=== PATIENT | male | born 1960 | race African-American/Black ===

== ENCOUNTER 2016-06-04 11:00 | Emergency (ER) | payer OTHER ==
[~2016-06-04] VITALS: Ht 170.2 cm; Wt 75.0 kg
[~2016-06-04 11:00] MED LIST: CLON.2 PO; CORTI10A AD
[2016-06-04 11:11] VITALS: BP 182/102; PULSE 68; RESP 20; TEMP 98.1; O2SAT 97
[2016-06-04] MEDS ORDERED: SODIUM CHLOR 0.9% 1000 ML INJ 1,000 ML IV ONE (11:45)
[2016-06-04] MEDS ORDERED: SODIUM CHLORIDE 0.9% FLUSH 10 ML FLUSH IVF PRN (11:45)
[2016-06-04] MEDS ORDERED: CITA20TA4 PO (11:48)
[2016-06-04] MEDS ORDERED: TRAZ150T75 PO (11:48)
[2016-06-04] MEDS ORDERED: LOSA50TA PO (11:48)
--- NOTE | 2016-06-04 11:52 | PD ---
HPI Chief Complaint: Headache Time Seen by Provider: 11:12 Travel History International Travel<30 days: No Contact w/Intl Traveler<30days: No Traveled to known affect area: No History of Present Illness HPI Patient is a 55-year-old male with only history of hypertension, who presents to the emergency room with complaints of acute onset dizziness. 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 Patient reports that he asked someone to check his blood pressure, reports that he was told that his blood pressure was "threw the roof," reports that they checked his blood sugar and that was normal. Patient reports no chest pain or shortness of breath during the symptoms. Patient reports the symptoms lasted for a few seconds and then resolve on its own. Patient at this point has no complaints, reports "I am ready to go." Denies any headache or dizziness, denies any chest pain or shortness of breath or diaphoresis. Patient reports that maybe he felt this way because he not have any breakfast this morning. PFSH Past Medical History Cardiovascular Problems: Yes (HTN) Hypertension: Yes Immunizations Current: Yes Past Surgical History Other Surgery: Yes (hernia repair ; jaw surgery) Social History Alcohol Use: Yes ((3) 16 oz beers per day) Tobacco Use: Yes (1/2 ppd) Substance Use: No Allergies-Medications (Allergen,Severity, Reaction): Coded Allergies: Lipitor (Unverified Allergy, Unknown, Swelling, 06/04/16) Reported Meds & Prescriptions Reported Meds & Active Scripts Active Reported Losartan (Losartan Potassium) 50 Mg Tab 50 Mg PO DAILY Citalopram (Citalopram Hydrobromide) 20 Mg Tab 20 Mg PO DAILY Trazodone (Trazodone HCl) 150 Mg Tab 150 Mg PO HS Review of Systems General / Constitutional: No: Fever Eyes: No: Visual changes HENT: Positive: Headaches, Lightheadedness Cardiovascular: No: Chest Pain or Discomfort Respiratory: No: Shortness of Breath Gastrointestinal: No: Abdominal Pain Genitourinary: No: Dysuria Musculoskeletal: No: Pain Skin: No Rash Neurologic: Positive: Dizziness, Headache, No: Weakness Psychiatric: No: Depression Endocrine: No: Polydipsia Hematologic/Lymphatic: No: Easy Bruising Physical Exam Narrative GENERAL: No acute distress, nontoxic, smiling and laughing on exam SKIN: Focused skin assessment warm/dry. HEAD: Atraumatic. Normocephalic. EYES: Pupils equal and round. No scleral icterus. No injection or drainage. ENT: No nasal bleeding or discharge. Mucous membranes pink and moist. NECK: Trachea midline. No JVD. CARDIOVASCULAR: Regular rate and rhythm. No murmur appreciated. RESPIRATORY: No accessory muscle use. Clear to auscultation. Breath sounds equal bilaterally. GASTROINTESTINAL: Abdomen soft, non-tender, nondistended. Hepatic and splenic margins not palpable. MUSCULOSKELETAL: No obvious deformities. No clubbing. No cyanosis. No edema. NEUROLOGICAL: Awake and alert. No obvious cranial nerve deficits. Motor grossly within normal limits. Normal speech. CN 2-12 grossly intact with no neurological deficits PSYCHIATRIC: Appropriate mood and affect; insight and judgment normal. Data Data Last Documented VS Vital Signs Date Time Temp Pulse Resp B/P Pulse Ox O2 Delivery O2 Flow Rate FiO2 06/04/16 13:35 97.8 66 17 196/97 100 Room Air Orders Electrocardiogram (06/04/16 11:32) Complete Blood Count With Diff (06/04/16 11:32) Comprehensive Metabolic Panel (06/04/16 11:32) Magnesium (Mg) (06/04/16 11:32) Prothrombin Time / Inr (Pt) (06/04/16 11:32) Act Partial Throm Time (Ptt) (06/04/16 11:32) Chest, Single Ap (06/04/16 11:32) Iv Access Insert/Monitor (06/04/16 11:32) Oximetry (06/04/16 11:32) Sodium Chloride 0.9% Flush (Ns Flush) (06/04/16 11:45) Sodium Chlor 0.9% 1000 Ml Inj (Ns 1000 M (06/04/16 11:45) Ct Brain W/O Iv Contrast(Rout) (06/04/16 11:42) Losartan (Cozaar) (06/04/16 13:45) Labs Laboratory Tests Test 06/04/16 12:40 White Blood Count 3.9 TH/MM3 Red Blood Count 4.20 MIL/MM3 Hemoglobin 14.1 GM/DL Hematocrit 40.2 % Mean Corpuscular Volume 95.8 FL Mean Corpuscular Hemoglobin 33.6 PG Mean Corpuscular Hemoglobin 35.1 % Concent Red Cell Distribution Width 13.7 % Platelet Count 198 TH/MM3 Mean Platelet Volume 7.1 FL Neutrophils (%) (Auto) 38.2 % Lymphocytes (%) (Auto) 51.0 % Monocytes (%) (Auto) 9.4 % Eosinophils (%) (Auto) 0.4 % Basophils (%) (Auto) 1.0 % Neutrophils # (Auto) 1.5 TH/MM3 Lymphocytes # (Auto) 2.0 TH/MM3 Monocytes # (Auto) 0.4 TH/MM3 Eosinophils # (Auto) 0.0 TH/MM3 Basophils # (Auto) 0.0 TH/MM3 CBC Comment DIFF FINAL Differential Comment Prothrombin Time 10.3 SEC Prothromb Time International 0.9 RATIO Ratio Activated Partial 29.0 SEC Thromboplast Time Sodium Level 137 MEQ/L Potassium Level 3.8 MEQ/L Chloride Level 105 MEQ/L Carbon Dioxide Level 23.1 MEQ/L Anion Gap 9 MEQ/L Blood Urea Nitrogen 8 MG/DL Creatinine 0.91 MG/DL Estimat Glomerular Filtration 105 ML/MIN Rate Random Glucose 73 MG/DL Calcium Level 8.9 MG/DL Magnesium Level 1.8 MG/DL Total Bilirubin 0.3 MG/DL Aspartate Amino Transf 39 U/L (AST/SGOT) Alanine Aminotransferase 25 U/L (ALT/SGPT) Alkaline Phosphatase 66 U/L Total Protein 8.3 GM/DL Albumin 3.5 GM/DL MDM Medical Decision Making Medical Screen Exam Complete: Yes Emergency Medical Condition: Yes Interpretation(s) EKG at 1236: sinus ambika at 59bpm, qt/qtc: 459/459, nonspecific t wave changes Vital Signs Date Time Temp Pulse Resp B/P Pulse Ox O2 Delivery O2 Flow Rate FiO2 06/04/16 11:15 68 20 98 Room Air 06/04/16 11:11 98.1 68 20 182/102 97 Differential Diagnosis CVA, TIA, ACS, electrolyte abnormality, dehydration, hypoglycemia Narrative Course Patient is a 55-year-old male who presents to emergency room with complaints of acute onset of headache, dizziness, lightheadedness. Patient reports that he was at [employer] helping out when all of a sudden he felt lightheaded and dizzy, reports that he felt near syncopal episode but reports that he was able to get to a seat and have his symptoms pass. Patient reports that symptoms lasted for a few seconds and resolve on its own. Patient at this time with no complaints. Patient is laughing and smiling exam. Patient has benign neurological exam, plan to obtain lab work including EKG and CT of the head for further evaluation of symptoms. We'll call [facility] to find out what his medications are for hypertension as patient is unsure of his current antihypertensives.. 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 Laboratory Tests Test 06/04/16 12:40 White Blood Count 3.9 TH/MM3 (4.0-11.0) Red Blood Count 4.20 MIL/MM3 (4.50-5.90) Hemoglobin 14.1 GM/DL (13.0-17.0) Hematocrit 40.2 % (39.0-51.0) Mean Corpuscular Volume 95.8 FL (80.0-100.0) Mean Corpuscular Hemoglobin 33.6 PG (27.0-34.0) Mean Corpuscular Hemoglobin 35.1 % Concent (32.0-36.0) Red Cell Distribution Width 13.7 % (11.6-17.2) Platelet Count 198 TH/MM3 (150-450) Mean Platelet Volume 7.1 FL (7.0-11.0) Neutrophils (%) (Auto) 38.2 % (16.0-70.0) Lymphocytes (%) (Auto) 51.0 % (9.0-44.0) Monocytes (%) (Auto) 9.4 % (0.0-8.0) Eosinophils (%) (Auto) 0.4 % (0.0-4.0) Basophils (%) (Auto) 1.0 % (0.0-2.0) Neutrophils # (Auto) 1.5 TH/MM3 (1.8-7.7) Lymphocytes # (Auto) 2.0 TH/MM3 (1.0-4.8) Monocytes # (Auto) 0.4 TH/MM3 (0-0.9) Eosinophils # (Auto) 0.0 TH/MM3 (0-0.4) Basophils # (Auto) 0.0 TH/MM3 (0-0.2) CBC Comment DIFF FINAL Differential Comment Prothrombin Time 10.3 SEC (9.8-11.6) Prothromb Time International 0.9 RATIO Ratio Activated Partial 29.0 SEC Thromboplast Time (24.3-30.1) Sodium Level 137 MEQ/L (136-145) Potassium Level 3.8 MEQ/L (3.5-5.1) Chloride Level 105 MEQ/L (98-107) Carbon Dioxide Level 23.1 MEQ/L (21.0-32.0) Anion Gap 9 MEQ/L (5-15) Blood Urea Nitrogen 8 MG/DL (7-18) Creatinine 0.91 MG/DL (0.60-1.30) Estimat Glomerular Filtration 105 ML/MIN Rate (>89) Random Glucose 73 MG/DL (74-106) Calcium Level 8.9 MG/DL (8.5-10.1) Magnesium Level 1.8 MG/DL (1.5-2.5) Total Bilirubin 0.3 MG/DL (0.2-1.0) Aspartate Amino Transf 39 U/L (15-37) (AST/SGOT) Alanine Aminotransferase 25 U/L (12-78) (ALT/SGPT) Alkaline Phosphatase 66 U/L (45-117) Total Protein 8.3 GM/DL (6.4-8.2) Albumin 3.5 GM/DL (3.4-5.0) Last Impressions Head CT 06/04/16 1142 Signed Impressions: Service Date/Time: Saturday, June 04, 2016 12:18 - CONCLUSION: Normal examination. Ovidio Bhatti MD Chest X-Ray 06/04/16 1132 Signed Impressions: Service Date/Time: Saturday, June 04, 2016 11:42 - CONCLUSION: No acute disease. Ovidio Bhatti MD Patient reevaluated, patient reports that he is feeling much better at this time. Patient reports that he has complete resolution of symptoms, I did review all labs and all studies with patient in detail. Patient will return to ER as needed. Signs and symptoms of when to return to ER was reviewed with patient in detail patient does have high blood pressure, discussed with him that I will double his dose of amlodipine 100 mg, will give him a dose of amlodipine right now, patient will follow-up with his primary care doctor tomorrow for blood pressure recheck. Patient understands need to return to the emergency room if he is unable to be seen by his primary care doctor for blood pressure check. Diagnosis Primary Impression: Near syncope Additional Impression: Hypertension Qualified Code: I10 - Essential hypertension Patient Instructions: General Instructions Additional Instructions: Please follow up with your primary care doctor in tomorrow as you will need your blood pressure rechecked, return to ER if you cannot be seen by your primary care doctor for blood pressure recheck You were given amlodipine 100mg while in the ER today, do not take your night dose of amlodipine Return to ER as needed Return to ER if symptoms worsen or progress Please take your medications as prescribed Med/Other Pt SpecificInfo: Prescription(s) given Disposition: DISCHARGE HOME Condition: Stable Lynne Ledesma DO Jun 04, 2016 11:52
--- NOTE | 2016-06-04 12:11 | RADRPT ---
EXAM DATE/TIME: 06/04/2016 11:42 [facility] COMPARISON: No previous studies available for comparison. INDICATIONS : Cough MEDICAL HISTORY : Hypertension. SURGICAL HISTORY : None. ENCOUNTER: Initial ACUITY: 4 - 6 days PAIN SCORE: 0/10 LOCATION: Bilateral chest FINDINGS: A single view of the chest demonstrates the lungs to be symmetrically aerated without evidence of mas s, infiltrate or effusion. Bilateral symmetric nipple shadows are seen. The cardiomediastinal contou rs are unremarkable. Osseous structures are intact. CONCLUSION: No acute disease. Ovidio Bhatti MD on June 04, 2016 at 12:08 Board Certified Radiologist. This report was verified electronically.
[2016-06-04 12:51] VITALS: RESP 20; O2SAT 98
[2016-06-04 12:56] LABS: AUTOMATED NEUTROPHIL # 1.5 TH/MM3 (1.8-7.7); EOSINOPHIL % 0.4 % (0.0-4.0); HEMATOCRIT 40.2 % (39.0-51.0); HEMO FLAGS DIFF FINAL; MEAN CELL VOLUME 95.8 FL (80.0-100.0); MEAN CORPUSCULAR HEMOGLOBIN 33.6 PG (27.0-34.0); MEAN CORPUSCULAR HGB CONC 35.1 % (32.0-36.0); MONO % 9.4 % (0.0-8.0); NEUT % 38.2 % (16.0-70.0); PLATELET COUNT 198 TH/MM3 (150-450); RED CELL DISTRIBUTION WIDTH 13.7 % (11.6-17.2); WHITE BLOOD COUNT 3.9 TH/MM3 (4.0-11.0)
--- NOTE | 2016-06-04 13:09 | RADRPT ---
EXAM DATE/TIME: 06/04/2016 12:18 [facility] COMPARISON: No previous studies available for comparison. INDICATIONS : Cephalgia. RADIATION DOSE: 39.78 CTDIvol (mGy) MEDICAL HISTORY : Hypertension. Cardiovascular disease SURGICAL HISTORY : None. ENCOUNTER: Initial ACUITY: 1 day PAIN SCALE: 4/10 LOCATION: cranial TECHNIQUE: Multiple contiguous axial images were obtained of the head. Using automated exposure control and adj ustment of the mA and/or kV according to patient size, radiation dose was kept as low as reasonably a chievable to obtain optimal diagnostic quality images. FINDINGS: CEREBRUM: The ventricles are normal for age. No evidence of midline shift, mass lesion, hemorrhage or acute in farction. No extra-axial fluid collections are seen. POSTERIOR FOSSA: The cerebellum and brainstem are intact. The 4th ventricle is midline. The cerebellopontine angle i s unremarkable. EXTRACRANIAL: The visualized portion of the orbits is intact. SKULL: The calvaria is intact. No evidence of skull fracture. CONCLUSION: Normal examination. Ovidio Bhatti MD on June 04, 2016 at 13:06 Board Certified Radiologist. This report was verified electronically.
[2016-06-04 13:11] LABS: INTERNATIONAL NORMALIZED RATIO 0.9 RATIO; PROTHROMBIN TIME - PATIENT 10.3 SEC (9.8-11.6)
[2016-06-04 13:15] LABS: ALT (GPT) 25 U/L (12-78); ANION GAP 9 MEQ/L (5-15); AST (GOT) 39 U/L (15-37); BICARBONATE 23.1 MEQ/L (21.0-32.0); BLOOD UREA NITROGEN 8 MG/DL (7-18); CHLORIDE 105 MEQ/L (98-107); GLOMERULAR FILTRATION RATE 105 ML/MIN (>89); MAGNESIUM 1.8 MG/DL (1.5-2.5); POTASSIUM 3.8 MEQ/L (3.5-5.1); SODIUM (NA) 137 MEQ/L (136-145)
[2016-06-04 13:18] LABS: ALKALINE PHOSPHATASE 66 U/L (45-117); TOTAL BILIRUBIN ADULT 0.3 MG/DL (0.2-1.0)
[2016-06-04 13:35] VITALS: BP 196/97; PULSE 66; RESP 17; TEMP 97.8; O2SAT 100
[2016-06-04] MEDS ORDERED: LOSARTAN 50 MG TAB PO ONE (13:45)
[2016-06-04] MEDS ORDERED: cloNIDine HCL 0.2 MG TAB PO ONE (15:00)
--- NOTE | 2016-06-04 15:05 | EKG ---
Date Performed: 06/04/2016 Time Performed: 12:36:44 PTAGE: 55 years EKG: SINUS BRADYCARDIA NONSPECIFIC T-WAVE ABNORMALITY BORDERLINE ECG PREVIOUS TRACING : 04/17/2014 20.54 Since previous tracing, no significant change noted DOCTOR: Bijan Oenal Interpretating Date/Time 06/04/2016 15:03:56
[2016-06-04 15:51] VITALS: BP 172/102; PULSE 60; RESP 18; O2SAT 99
== END 2016-06-04 16:31 | disposition home or self-care (01) ==
LOC: NEPC 11:00
DX: R55 Syncope and collapse (principal); I10 Essential (primary) hypertension; F17.200 Nicotine dependence, unspecified, uncomplicated
CPT/HCPCS: 70450; 71010; 80053; 83735; 85025; 85610; 85730; 93005; 96360; 96361; 99285; J7030

== ENCOUNTER 2016-07-16 17:58 | Emergency (ER) | payer OTHER ==
[~2016-07-16] VITALS: Ht 167.6 cm; Wt 70.0 kg
[~2016-07-16 17:58] MED LIST changes: +CITA20TA4 PO; -CLON.2 PO; -CORTI10A AD; +LOSA50TA PO; +TRAZ150T75 PO
[2016-07-16 18:46] VITALS: BP 144/86; PULSE 96; RESP 20; TEMP 98.7; O2SAT 93
[2016-07-16 18:50] VITALS: BP 144/86; PULSE 96; RESP 22; O2SAT 94
--- NOTE | 2016-07-16 18:52 | PD ---
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 Patient denies any medical complaints currently. Denies any chest pain, shortness of breath, nausea, vomiting, abdominal pain, headache, or fevers. Patient states that he is fine and wants to go home. Patient states he's been off his medications for approximately 5 days but does not know the names of his medications. PFSH Past Medical History Cardiovascular Problems: Yes Hypertension: Yes Respiratory: Yes Immunizations Current: Yes Past Surgical History Other Surgery: Yes (hernia repair ; jaw surgery) Social History Alcohol Use: Yes ((3) 16 oz beers per day) Tobacco Use: Yes (1/2 ppd) Substance Use: Yes (crack) Allergies-Medications (Allergen,Severity, Reaction): Coded Allergies: Lipitor (Unverified Allergy, Unknown, Swelling, 07/16/16) Reported Meds & Prescriptions Reported Meds & Active Scripts Active Reported Losartan (Losartan Potassium) 50 Mg Tab 50 Mg PO DAILY Citalopram (Citalopram Hydrobromide) 20 Mg Tab 20 Mg PO DAILY Review of Systems Except as stated in HPI: all other systems reviewed are Neg Physical Exam Narrative GENERAL: Well-developed, well nourished, in no acute distress, and non-ill appearing. SKIN: Focused skin assessment warm and dry. HEAD: Atraumatic. Normocephalic. EYES: Pupils equal and round. EOMI. No scleral icterus. No injection or drainage. ENT: No nasal bleeding or discharge. Mucous membranes pink and moist. NECK: Trachea midline. Supple. No nuclear rigidity. CARDIOVASCULAR: Regular rate and rhythm. No murmur appreciated. RESPIRATORY: No accessory muscle use. No respiratory distress. Clear to auscultation. Breath sounds equal bilaterally. MUSCULOSKELETAL: No obvious deformities. No clubbing. No cyanosis. No edema. Full range of motion. NEUROLOGICAL: Awake and alert. No obvious cranial nerve deficits. Motor grossly within normal limits. Rapid speech. Data Data Last Documented VS Vital Signs Date Time Temp Pulse Resp B/P Pulse Ox O2 Delivery O2 Flow Rate FiO2 6/4/17 18:50 96 22 144/86 94 Room Air 07/16/16 18:46 98.7 Orders Complete Blood Count With Diff (07/16/16 18:47) Comprehensive Metabolic Panel (07/16/16 18:47) Psych Screen (07/16/16 18:47) Drug Screen, Random Urine (07/16/16 18:47) Alcohol (Ethanol) (07/16/16 18:47) Salicylates (Aspirin) (07/16/16 18:47) Tylenol (Acetaminophen) (07/16/16 18:47) Labs Laboratory Tests Test 07/16/16 19:05 White Blood Count 5.7 TH/MM3 Red Blood Count 4.17 MIL/MM3 Hemoglobin 13.8 GM/DL Hematocrit 40.4 % Mean Corpuscular Volume 97.1 FL Mean Corpuscular Hemoglobin 33.2 PG Mean Corpuscular Hemoglobin 34.2 % Concent Red Cell Distribution Width 13.1 % Platelet Count 223 TH/MM3 Mean Platelet Volume 7.1 FL Neutrophils (%) (Auto) 30.9 % Lymphocytes (%) (Auto) 56.9 % Monocytes (%) (Auto) 10.4 % Eosinophils (%) (Auto) 1.4 % Basophils (%) (Auto) 0.4 % Neutrophils # (Auto) 1.8 TH/MM3 Lymphocytes # (Auto) 3.2 TH/MM3 Monocytes # (Auto) 0.6 TH/MM3 Eosinophils # (Auto) 0.1 TH/MM3 Basophils # (Auto) 0.0 TH/MM3 CBC Comment DIFF FINAL Differential Comment Sodium Level 141 MEQ/L Potassium Level 3.8 MEQ/L Chloride Level 108 MEQ/L Carbon Dioxide Level 21.8 MEQ/L Anion Gap 11 MEQ/L Blood Urea Nitrogen 11 MG/DL Creatinine 1.14 MG/DL Estimat Glomerular Filtration 81 ML/MIN Rate Random Glucose 99 MG/DL Calcium Level 8.3 MG/DL Total Bilirubin 0.1 MG/DL Aspartate Amino Transf 33 U/L (AST/SGOT) Alanine Aminotransferase 26 U/L (ALT/SGPT) Alkaline Phosphatase 78 U/L Total Protein 8.3 GM/DL Albumin 3.3 GM/DL Salicylates Level 4.2 MG/DL Urine Opiates Screen NEG Acetaminophen Level LESS THAN 2.0 MCG/ML Urine Barbiturates Screen NEG Urine Amphetamines Screen NEG Urine Benzodiazepines Screen NEG Urine Cocaine Screen NEG Urine Cannabinoids Screen NEG Ethyl Alcohol Level 329 MG/DL MDM Medical Decision Making Medical Screen Exam Complete: Yes Emergency Medical Condition: Yes Differential Diagnosis Homicidal, suicidal, drug-induced psychosis, alcohol intoxication, other Narrative Course Patient was seen and examined. Labs were obtained and reviewed. Patient medically cleared for further treatment and evaluation by psych. Final disposition per psych. Diagnosis Primary Impression: Alcohol intoxication Qualified Code: F10.920 - Alcohol intoxication, uncomplicated Additional Impression: Medical clearance for psychiatric admission Condition: Stable Rogelio Lira Jul 16, 2016 18:52 Rogelio Lira Jul 16, 2016 18:52
[2016-07-16 19:22] LABS: AUTOMATED NEUTROPHIL # 1.8 TH/MM3 (1.8-7.7); BASOPHIL % 0.4 % (0.0-2.0); EOSINOPHIL # 0.1 TH/MM3 (0-0.4); EOSINOPHIL % 1.4 % (0.0-4.0); HEMATOCRIT 40.4 % (39.0-51.0); HEMO FLAGS DIFF FINAL; LYMPH % 56.9 % (9.0-44.0); LYMPHOCYTE # 3.2 TH/MM3 (1.0-4.8); MEAN CELL VOLUME 97.1 FL (80.0-100.0); MEAN CORPUSCULAR HEMOGLOBIN 33.2 PG (27.0-34.0); MEAN CORPUSCULAR HGB CONC 34.2 % (32.0-36.0); MONO % 10.4 % (0.0-8.0); NEUT % 30.9 % (16.0-70.0); PLATELET COUNT 223 TH/MM3 (150-450); RED BLOOD COUNT 4.17 MIL/MM3 (4.50-5.90); RED CELL DISTRIBUTION WIDTH 13.1 % (11.6-17.2); WHITE BLOOD COUNT 5.7 TH/MM3 (4.0-11.0)
[2016-07-16 19:27] LABS: AMPHETAMINE, URINE NEG (NEG); BARBITURATES, URINE NEG (NEG); COCAINE, URINE NEG (NEG)
[2016-07-16 19:33] LABS: ANION GAP 11 MEQ/L (5-15); BICARBONATE 21.8 MEQ/L (21.0-32.0); BLOOD UREA NITROGEN 11 MG/DL (7-18); CHLORIDE 108 MEQ/L (98-107); GLOMERULAR FILTRATION RATE 81 ML/MIN (>89); POTASSIUM 3.8 MEQ/L (3.5-5.1); SODIUM (NA) 141 MEQ/L (136-145)
[2016-07-16 19:34] LABS: ALT (GPT) 26 U/L (12-78); AST (GOT) 33 U/L (15-37)
[2016-07-16 19:40] LABS: ALKALINE PHOSPHATASE 78 U/L (45-117); TOTAL BILIRUBIN ADULT 0.1 MG/DL (0.2-1.0)
[2016-07-16 19:45] LABS: ACETAMINOPHEN LESS THAN 2.0 MCG/ML (10.0-30.0)
[2016-07-17 09:09] VITALS: BP 140/74; PULSE 89; RESP 20; O2SAT 97
[2016-07-17 13:33] VITALS: BP 178/98; PULSE 89; RESP 20; O2SAT 96
[2016-07-17] MEDS ORDERED: LOSARTAN 50 MG TAB PO ONE (14:15)
[2016-07-17] MEDS ORDERED: AMLO5TAB2 PO (15:12)
[2016-07-17 16:02] VITALS: BP 165/100; PULSE 67; RESP 18; TEMP 96.8; O2SAT 99
== END 2016-07-17 17:09 ==
LOC: NEPD 17:58 → NEPJ 07-17 17:09
DX: F10.94 Alcohol use, unspecified with alcohol-induced mood disorder (principal); I10 Essential (primary) hypertension; F17.210 Nicotine dependence, cigarettes, uncomplicated
CPT/HCPCS: 80053; 80307; 85025; 99285

== ENCOUNTER 2016-08-09 16:27 | Emergency (ER) | payer OTHER ==
[~2016-08-09] VITALS: Ht 167.6 cm; Wt 75.0 kg
[~2016-08-09 16:27] MED LIST changes: +AMLO5TAB2 PO; -TRAZ150T75 PO
[2016-08-09 16:36] VITALS: BP 145/96; PULSE 93; RESP 18; TEMP 98.1
--- NOTE | 2016-08-09 17:19 | PD ---
HPI Chief Complaint: Pain: Acute or Chronic Time Seen by Provider: 17:10 Travel History International Travel<30 days: No Contact w/Intl Traveler<30days: No Traveled to known affect area: No History of Present Illness HPI This patient complains of chest pain. Location is left upper chest. Duration 4 days. Denies injury. Severity is moderate. Clearly reproducible with movement of the torso or palpation. Denies history of cardiac disease. He admits to heavy alcohol use on a daily basis. He's been drinking today. Denies drug use or history of IV drug abuse. PFSH Past Medical History Depression: Yes Cardiovascular Problems: Yes Diabetes: No Hypertension: Yes Respiratory: Yes Immunizations Current: Yes Past Surgical History Other Surgery: Yes (hernia repair ; jaw surgery) Social History Alcohol Use: Yes ((3) 16 oz beers per day) Tobacco Use: Yes (1/2 ppd) Substance Use: Yes (CRACK, ALCOHOL) Allergies-Medications (Allergen,Severity, Reaction): Coded Allergies: Lipitor (Unverified Allergy, Unknown, Swelling, 08/09/16) Reported Meds & Prescriptions Reported Meds & Active Scripts Active Reported Amlodipine (Amlodipine Besylate) 5 Mg Tab 5 Mg PO DAILY Losartan (Losartan Potassium) 50 Mg Tab 50 Mg PO DAILY Citalopram (Citalopram Hydrobromide) 20 Mg Tab 20 Mg PO DAILY Review of Systems General / Constitutional: No: Fever Eyes: No: Visual changes HENT: No: Headaches Cardiovascular: Positive: Chest Pain or Discomfort Respiratory: No: Shortness of Breath Gastrointestinal: No: Abdominal Pain Genitourinary: No: Dysuria Musculoskeletal: No: Pain Skin: No Rash Neurologic: No: Weakness Psychiatric: Positive: Substance Abuse, No: Depression Endocrine: No: Polydipsia Hematologic/Lymphatic: No: Easy Bruising Physical Exam Narrative GENERAL: Well-nourished, well-developed patient in no apparent distress. SKIN: Focused skin assessment reveals no rash and nodules. Skin is Warm and dry. HEAD: Atraumatic. Normocephalic. EYES: Pupils equal and round. No scleral icterus. No injection or drainage. ENT: No nasal bleeding or discharge. Mucous membranes pink and moist. NECK: Trachea midline. No JVD. CARDIOVASCULAR: Regular rate and rhythm. No murmur appreciated. RESPIRATORY: No accessory muscle use. Clear to auscultation. Breath sounds equal bilaterally. GASTROINTESTINAL: Abdomen soft, non-tender, nondistended. Hepatic and splenic margins not palpable. MUSCULOSKELETAL: No obvious deformities. No clubbing. No cyanosis. No edema. Readily reproducible chest wall tenderness in the left lower half of the rib cage. No crepitus or ecchymosis. No paradoxical rib movement. NEUROLOGICAL: Awake and alert. No obvious cranial nerve deficits. Motor grossly within normal limits. Normal speech. PSYCHIATRIC: Appropriate mood and affect; insight and judgment seems weak. Data Data Last Documented VS Vital Signs Date Time Temp Pulse Resp B/P Pulse Ox O2 Delivery O2 Flow Rate FiO2 08/09/16 16:36 98.1 93 18 145/96 Orders Electrocardiogram (08/09/16 17:16) Basic Metabolic Panel (Bmp) (08/09/16 17:16) Ckmb (Isoenzyme) Profile (08/09/16 17:16) Complete Blood Count With Diff (08/09/16 17:16) Troponin I (08/09/16 17:16) Ecg Monitoring (08/09/16 17:16) Iv Access Insert/Monitor (08/09/16 17:16) Oximetry (08/09/16 17:16) Sodium Chloride 0.9% Flush (Ns Flush) (08/09/16 17:30) Alcohol (Ethanol) (08/09/16 17:16) CKMB (08/09/16 17:25) CKMB% (08/09/16 17:25) Labs Laboratory Tests Test 08/09/16 17:25 White Blood Count 5.5 TH/MM3 Red Blood Count 4.54 MIL/MM3 Hemoglobin 14.6 GM/DL Hematocrit 43.3 % Mean Corpuscular Volume 95.4 FL Mean Corpuscular Hemoglobin 32.1 PG Mean Corpuscular Hemoglobin 33.6 % Concent Red Cell Distribution Width 13.5 % Platelet Count 216 TH/MM3 Mean Platelet Volume 7.5 FL Neutrophils (%) (Auto) 32.7 % Lymphocytes (%) (Auto) 55.6 % Monocytes (%) (Auto) 8.7 % Eosinophils (%) (Auto) 2.4 % Basophils (%) (Auto) 0.6 % Neutrophils # (Auto) 1.8 TH/MM3 Lymphocytes # (Auto) 3.0 TH/MM3 Monocytes # (Auto) 0.5 TH/MM3 Eosinophils # (Auto) 0.1 TH/MM3 Basophils # (Auto) 0.0 TH/MM3 CBC Comment DIFF FINAL Differential Comment Sodium Level 142 MEQ/L Potassium Level 3.9 MEQ/L Chloride Level 113 MEQ/L Carbon Dioxide Level 18.4 MEQ/L Anion Gap 11 MEQ/L Blood Urea Nitrogen 8 MG/DL Creatinine 0.86 MG/DL Estimat Glomerular Filtration 112 ML/MIN Rate Random Glucose 94 MG/DL Calcium Level 8.5 MG/DL Total Creatine Kinase 427 U/L Creatine Kinase MB 1.9 NG/ML Creatine Kinase MB % 0.4 % Troponin I LESS THAN 0.02 NG/ML Ethyl Alcohol Level 174 MG/DL [facility] Medical Decision Making Medical Screen Exam Complete: Yes Emergency Medical Condition: Yes Medical Record Reviewed: Yes Differential Diagnosis Differential diagnosis includes DC, angina, pericarditis, pleurisy, GERD, anxiety. Narrative Course I have reviewed the patient's electronic medical record. Patient was seen here July 16, 2016 when he was found lying intoxicated in the roadway and placed under [place] act IV placed I reviewed the EKG which shows sinus rhythm but no ST elevation Extended cardiac monitoring shows sinus rhythm without ectopy CBC is normal Metabolic profile is normal CK is slightly elevated but normal MB percent Troponin is normal Alcohol level is elevated at 174 indicating acute intoxication This patient has clear-cut and readily reproducible sided chest wall pain that' s causing his discomfort. He will not require inpatient evaluation for it or need urgent stress testing for this pain Patient and especially his visitor in the room became argumentative and uncooperative. Started demanding things such as someone to drive him home. I attempted to de-escalate. I did not engage them in arguing. Diagnosis Primary Impression: Musculoskeletal chest pain Additional Impression: Alcohol intoxication Qualified Code: F10.920 - Alcohol intoxication, uncomplicated Additional Instructions: The patient was advised to follow up with their physician and return if they worsen. Avoid alcohol binging Med/Other Pt SpecificInfo: Other Disposition: 01 DISCHARGE HOME Condition: Stable Juarez Nava MD Aug 09, 2016 17:19
[2016-08-09] MEDS ORDERED: SODIUM CHLORIDE 0.9% FLUSH 10 ML FLUSH IVF PRN (17:30)
[2016-08-09 17:52] LABS: AUTOMATED NEUTROPHIL # 1.8 TH/MM3 (1.8-7.7); BASOPHIL % 0.6 % (0.0-2.0); EOSINOPHIL # 0.1 TH/MM3 (0-0.4); EOSINOPHIL % 2.4 % (0.0-4.0); HEMATOCRIT 43.3 % (39.0-51.0); HEMO FLAGS DIFF FINAL; LYMPH % 55.6 % (9.0-44.0); MEAN CELL VOLUME 95.4 FL (80.0-100.0); MEAN CORPUSCULAR HEMOGLOBIN 32.1 PG (27.0-34.0); MEAN CORPUSCULAR HGB CONC 33.6 % (32.0-36.0); MONO % 8.7 % (0.0-8.0); NEUT % 32.7 % (16.0-70.0); PLATELET COUNT 216 TH/MM3 (150-450); RED BLOOD COUNT 4.54 MIL/MM3 (4.50-5.90); RED CELL DISTRIBUTION WIDTH 13.5 % (11.6-17.2); WHITE BLOOD COUNT 5.5 TH/MM3 (4.0-11.0)
[2016-08-09 18:26] LABS: ANION GAP 11 MEQ/L (5-15); BICARBONATE 18.4 MEQ/L (21.0-32.0); BLOOD UREA NITROGEN 8 MG/DL (7-18); CHLORIDE 113 MEQ/L (98-107); CREATINE KINASE 427 U/L (39-308); GLOMERULAR FILTRATION RATE 112 ML/MIN (>89); POTASSIUM 3.9 MEQ/L (3.5-5.1); SODIUM (NA) 142 MEQ/L (136-145)
[2016-08-09 18:39] LABS: CKMB 1.9 NG/ML (0.5-3.6)
[2016-08-09 19:40] VITALS: RESP 18; O2SAT 97
--- NOTE | 2016-08-10 08:00 | EKG ---
Date Performed: 08/09/2016 Time Performed: 16:43:40 PTAGE: 56 years EKG: Sinus rhythm MODERATE T-WAVE ABNORMALITY, CONSIDER LATERAL ISCHEMIA ABNORMAL ECG NO PREVIOUS TRACING DOCTOR: Quinn Loza Interpretating Date/Time 08/10/2016 07:55:21
== END 2016-08-09 19:53 | disposition home or self-care (01) ==
LOC: NEPD 16:27
DX: R07.89 Other chest pain (principal); F10.129 Alcohol abuse with intoxication, unspecified; F32.9 Major depressive disorder, single episode, unspecified; I10 Essential (primary) hypertension; F17.200 Nicotine dependence, unspecified, uncomplicated; Z79.899 Other long term (current) drug therapy
CPT/HCPCS: 80048; 80307; 82550; 82552; 84484; 85025; 93005; 99284

== ENCOUNTER 2016-11-13 17:16 | Emergency (ER) | payer OTHER ==
[~2016-11-13] VITALS: Ht 167.6 cm; Wt 75.0 kg
[2016-11-13 17:45] VITALS: BP 144/99; PULSE 105; RESP 18; TEMP 97.8; O2SAT 97
[2016-11-13 18:33] LABS: AUTOMATED NEUTROPHIL # 1.9 TH/MM3 (1.8-7.7); BASOPHIL % 0.6 % (0.0-2.0); EOSINOPHIL # 0.2 TH/MM3 (0-0.4); EOSINOPHIL % 2.8 % (0.0-4.0); HEMATOCRIT 42.1 % (39.0-51.0); HEMO FLAGS DIFF FINAL; LYMPH % 53.9 % (9.0-44.0); LYMPHOCYTE # 3.4 TH/MM3 (1.0-4.8); MEAN CELL VOLUME 94.9 FL (80.0-100.0); MEAN CORPUSCULAR HEMOGLOBIN 34.1 PG (27.0-34.0); MEAN CORPUSCULAR HGB CONC 35.9 % (32.0-36.0); MONO % 12.6 % (0.0-8.0); NEUT % 30.1 % (16.0-70.0); PLATELET COUNT 222 TH/MM3 (150-450); RED BLOOD COUNT 4.44 MIL/MM3 (4.50-5.90); RED CELL DISTRIBUTION WIDTH 13.8 % (11.6-17.2); WHITE BLOOD COUNT 6.3 TH/MM3 (4.0-11.0)
[2016-11-13 19:05] LABS: ANION GAP 10 MEQ/L (5-15); AST (GOT) 59 U/L (15-37); BICARBONATE 21.9 MEQ/L (21.0-32.0); BLOOD UREA NITROGEN 11 MG/DL (7-18); CHLORIDE 105 MEQ/L (98-107); GLOMERULAR FILTRATION RATE 96 ML/MIN (>89); POTASSIUM 3.9 MEQ/L (3.5-5.1); SODIUM (NA) 137 MEQ/L (136-145)
[2016-11-13 19:07] LABS: ALT (GPT) 38 U/L (12-78)
[2016-11-13 19:09] LABS: ALKALINE PHOSPHATASE 98 U/L (45-117); TOTAL BILIRUBIN ADULT 0.2 MG/DL (0.2-1.0)
--- NOTE | 2016-11-13 19:25 | PD ---
HPI Chief Complaint: Psychiatric Symptoms Time Seen by Provider: 19:05 Travel History International Travel<30 days: No Contact w/Intl Traveler<30days: No Traveled to known affect area: No History of Present Illness HPI 56-year-old male that presents to the ED for evaluation of psych. Patient was Burdick acted by police after he apparently mentioned to them that he wanted to kill himself. He has a history of depression as well as hypertension. Per patient she's been drinking alcohol today. He also uses drugs including cocaine. He states that he does not know what medications he takes. He is a poor historian. He states that he feels anxious and depressed wants to hurt himself. He has no actual plan the. Denies any homicidal ideation. No hearing voices. Symptoms appear to be worse secondary to different stressors. Allergies to atorvastatin. She has been Burdick acted in the past. PFSH Past Medical History Depression: Yes Cardiovascular Problems: Yes Diabetes: No Diminished Hearing: No Hypertension: Yes Respiratory: Yes Immunizations Current: Yes Past Surgical History Other Surgery: Yes (hernia repair ; jaw surgery) Social History Alcohol Use: Yes ((3) 16 oz beers per day) Tobacco Use: Yes (1/2 ppd) Substance Use: Yes (CRACK, ALCOHOL) Allergies-Medications (Allergen,Severity, Reaction): Coded Allergies: atorvastatin (Unverified Allergy, Unknown, Swelling, 09/26/16) Reported Meds & Prescriptions Reported Meds & Active Scripts Active Reported Amlodipine (Amlodipine Besylate) 5 Mg Tab 5 Mg PO DAILY Losartan (Losartan Potassium) 50 Mg Tab 50 Mg PO DAILY Citalopram (Citalopram Hydrobromide) 20 Mg Tab 20 Mg PO DAILY Review of Systems Except as stated in HPI: all other systems reviewed are Neg Physical Exam Narrative GENERAL: SKIN: Warm and dry. HEAD: Atraumatic. Normocephalic. EYES: Pupils equal and round. No scleral icterus. No injection or drainage. ENT: No nasal bleeding or discharge. Mucous membranes pink and moist. Tongue is midline. No uvula deviation. NECK: Trachea midline. No JVD. CARDIOVASCULAR: Regular rate and rhythm. No murmurs, S3, S4. RESPIRATORY: No accessory muscle use. Clear to auscultation. Breath sounds equal bilaterally. GASTROINTESTINAL: Abdomen soft, non-tender, nondistended. Hepatic and splenic margins not palpable. MUSCULOSKELETAL: Extremities without clubbing, cyanosis, or edema. No obvious deformities. Full range of motion of the upper and lower extremities bilaterally. 2+ pulses bilaterally. NEUROLOGICAL: Awake and alert. No obvious cranial nerve deficits. Motor grossly within normal limits. Five out of 5 muscle strength in the arms and legs. Normal speech. PSYCHIATRIC: Appropriate mood and affect; insight and judgment normal. Data Data Last Documented VS Vital Signs Date Time Temp Pulse Resp B/P (MAP) Pulse Ox O2 Delivery O2 Flow Rate FiO2 11/13/16 17:45 97.8 105 18 144/99 (114) 97 Orders Orders Complete Blood Count With Diff (11/13/16 17:49) Comprehensive Metabolic Panel (11/13/16 17:49) Psych Screen (11/13/16 17:49) Drug Screen, Random Urine (11/13/16 17:49) Labs Laboratory Tests Test 11/13/16 17:25 10 17:50 Urine Opiates Screen NEG Urine Barbiturates Screen NEG Urine Amphetamines Screen NEG Urine Benzodiazepines Screen NEG Urine Cocaine Screen POS Urine Cannabinoids Screen NEG White Blood Count 6.3 TH/MM3 Red Blood Count 4.44 MIL/MM3 Hemoglobin 15.1 GM/DL Hematocrit 42.1 % Mean Corpuscular Volume 94.9 FL Mean Corpuscular Hemoglobin 34.1 PG Mean Corpuscular Hemoglobin Concent 35.9 % Red Cell Distribution Width 13.8 % Platelet Count 222 TH/MM3 Mean Platelet Volume 7.2 FL Neutrophils (%) (Auto) 30.1 % Lymphocytes (%) (Auto) 53.9 % Monocytes (%) (Auto) 12.6 % Eosinophils (%) (Auto) 2.8 % Basophils (%) (Auto) 0.6 % Neutrophils # (Auto) 1.9 TH/MM3 Lymphocytes # (Auto) 3.4 TH/MM3 Monocytes # (Auto) 0.8 TH/MM3 Eosinophils # (Auto) 0.2 TH/MM3 Basophils # (Auto) 0.0 TH/MM3 CBC Comment DIFF FINAL Differential Comment Blood Urea Nitrogen 11 MG/DL Creatinine 0.98 MG/DL Random Glucose 95 MG/DL Total Protein 9.0 GM/DL Albumin 3.6 GM/DL Calcium Level 8.5 MG/DL Alkaline Phosphatase 98 U/L Aspartate Amino Transf (AST/SGOT) 59 U/L Alanine Aminotransferase (ALT/SGPT) 38 U/L Total Bilirubin 0.2 MG/DL Sodium Level 137 MEQ/L Potassium Level 3.9 MEQ/L Chloride Level 105 MEQ/L Carbon Dioxide Level 21.9 MEQ/L Anion Gap 10 MEQ/L Estimat Glomerular Filtration Rate 96 ML/MIN MDM Medical Decision Making Medical Screen Exam Complete: Yes Emergency Medical Condition: Yes Medical Record Reviewed: Yes Interpretation(s) CBC & BMP Diagram 11/13/16 17:50 Total Protein 9.0 H, Albumin 3.6, Calcium Level 8.5, Alkaline Phosphatase 98, Aspartate Amino Transf (AST/SGOT) 59 H, Alanine Aminotransferase (ALT/SGPT) 38, Total Bilirubin 0.2 Tox screen positive for cocaine Differential Diagnosis Depression versus suicidal ideation versus anxiety versus adjustment disorder versus mood disorder versus bipolar disorder versus schizophrenia versus paranoid disorder versus psychosis versus substance abuse versus alcohol abuse versus alcohol induced psychosis versus homicidality addition versus cutting versus personality disorder Narrative Course 56-year-old male that presents to the ED for evaluation of psych. Patient was properly examined and was found to have signs and symptoms consistent with psychiatric illness. Labs were drawn and worse injury unremarkable. Positive for cocaine. Patient was medically cleared. Okay to be seen by psych. Mental health screening was discussed with the patient. Diagnosis Primary Impression: Suicidal ideation Jarad Estrada Nov 13, 2016 19:25
[2016-11-14 06:45] VITALS: BP 188/104; PULSE 66; RESP 18; O2SAT 99
[2016-11-14] MEDS ORDERED: LOSARTAN 50 MG TAB PO ONE (08:45)
[2016-11-14] MEDS ORDERED: amLODIPine BESYLATE 5 MG TAB PO ONE (08:45)
--- NOTE | 2016-11-14 08:57 | PD ---
History of Present Illness Chief Complaint: Psychiatric Symptoms Time Seen by Provider: 08:45 Travel History International Travel<30 Days: No Contact w/Intl Traveler<30days: No Known affected area: No Legal Status Legal Status: Burdick Act Burdick Act Signed By: Lelo Lu History of Present Illness: History of Present Illness HPI 56-year-old male with history of substance use disorder and PTSD that presents to the ED under a Burdick act initiated by DAVID. The BA alleges that he was found walking in the middle of traffic and advised that he wanted to get hit by a car to hurt or kill himself. Male has PTSD and has not taken medication for unknown amount of time . Per patient he's been drinking alcohol today as well as smoking crack. He admits to smoking crack at least once a month. Patient also reports that he did not follow up with treatment once he was discharged from [facility] in July of 2016. Current toxicology positive for cocaine which he states he has been using once a month. Also using alcohol but no BAL on record. Patient seen. EMR reviewed. Patient states " I"m here because I want to go to [facility]". He is alert, oriented, engaging an cooperative male that appears stated age. He is now clinically sober. There is no signs of withdrawal. He is casually dressed and maintaining basic hygiene. There is no psychosis, no melissa and no suicdal or homicidal ideation, intent or plan. He is wanting to get back in treatment for his alcohol abuse as well as his use of crack. . PFSH Past Medical History Depression: Yes Cardiovascular Problems: Yes Diabetes: No Diminished Hearing: No Hypertension: Yes Respiratory: Yes Immunizations Current: Yes Tetanus Vaccination: Unknown Past Surgical History Other Surgery: Yes (hernia repair ; jaw surgery) Psychiatric History Psychiatric History Hx Psychiatric Treatment: [facility] IN JULY 2016 Hosp in [place] but doesn't remeber the [facility]- last appt in July. History of Inpatient Treatment: Yes Guns or firearms in home: No Social History Single male, lives by himself. Born and raised in [place]. Disabled x 12 years Hx Alcohol Use: Yes ((3) 16 oz beers per day) Hx Tobacco Use: Yes (1/2 ppd) Hx Substance Use: Yes Substance Use Type: Alcohol, Crack Other Substances Used: DENIES HISTORY OF WITHDRAWAL SYMPTOMS Hx of Substance Use Treatment: Yes ([facility]) Family Psychiatric History Negative Allergies-Medications (Allergen,Severity, Reaction): Coded Allergies: atorvastatin (Unverified Allergy, Unknown, Swelling, 11/14/16) Reported Meds & Prescriptions Reported Meds & Active Scripts Active Reported Amlodipine (Amlodipine Besylate) 5 Mg Tab 5 Mg PO DAILY Losartan (Losartan Potassium) 50 Mg Tab 50 Mg PO DAILY Citalopram (Citalopram Hydrobromide) 20 Mg Tab 20 Mg PO DAILY Review of Systems Except as stated in HPI: all other systems reviewed are Neg Exam Alert: Yes [place]: Person (ox4) Mood: Calm Affect: Appropriate Speech: Clear, Logical Eye Contact: Normal Memory Intact: Comment (Not impaired) Delusions: No Suicidal: Ideation (Denies any) Homicidal: Ideation (Denies any) Insight/Judgement Fair. Not impaired MDM Medical Decision Making Medical Record Reviewed: Yes Assessment/Plan 56-year-old male with history of substance use disorder and PTSD who presents to the ED under a Burdick act initiated by DAVID. The BA alleges that he was found walking in the middle of traffic and advised that he wanted to get hit by a car to hurt or kill himself. Per patient he's been drinking alcohol today as well as smoking crack and admits to smoking crack at least once a month. Patient also reports that he did not follow up with treatment once he was discharged from [facility] in July of 2016. He is now clinically sober. There is no signs of withdrawal. He is not psychotic. He is future oriented and wants to receive treatment. This facility does not provide any substance abuse treatment which I believe he needs at this time. He will be referred to outpatient treatment centers in the area including [facility] . He can certainly access services at [facility] on his own and I have provided him with contact information. He does not present any unstable mental illness as defined by Burdick act. The BA will be lifted. Psychiatrically clear for discharge from ED. Orders Orders Complete Blood Count With Diff (11/13/16 17:49) Comprehensive Metabolic Panel (11/13/16 17:49) Psych Screen (11/13/16 17:49) Drug Screen, Random Urine (11/13/16 17:49) Diet Regular Basic (11/14/16 Breakfast) Amlodipine (Norvasc) (11/14/16 08:45) Losartan (Cozaar) (11/14/16 08:45) Results Vital Signs Date Time Temp Pulse Resp B/P (MAP) Pulse Ox O2 Delivery O2 Flow Rate FiO2 11/14/16 06:45 66 18 188/104 (132) 99 Room Air 11/13/16 17:45 97.8 105 18 144/99 (114) 97 Laboratory Tests Test 11/13/16 17:25 11/13/16 17:50 Urine Opiates Screen NEG Urine Barbiturates Screen NEG Urine Amphetamines Screen NEG Urine Benzodiazepines Screen NEG Urine Cocaine Screen POS Urine Cannabinoids Screen NEG White Blood Count 6.3 Red Blood Count 4.44 Hemoglobin 15.1 Hematocrit 42.1 Mean Corpuscular Volume 94.9 Mean Corpuscular Hemoglobin 34.1 Mean Corpuscular Hemoglobin Concent 35.9 Red Cell Distribution Width 13.8 Platelet Count 222 Mean Platelet Volume 7.2 Neutrophils (%) (Auto) 30.1 Lymphocytes (%) (Auto) 53.9 Monocytes (%) (Auto) 12.6 Eosinophils (%) (Auto) 2.8 Basophils (%) (Auto) 0.6 Neutrophils # (Auto) 1.9 Lymphocytes # (Auto) 3.4 Monocytes # (Auto) 0.8 Eosinophils # (Auto) 0.2 Basophils # (Auto) 0.0 CBC Comment DIFF FINAL Differential Comment Blood Urea Nitrogen 11 Creatinine 0.98 Random Glucose 95 Total Protein 9.0 Albumin 3.6 Calcium Level 8.5 Alkaline Phosphatase 98 Aspartate Amino Transf (AST/SGOT) 59 Alanine Aminotransferase (ALT/SGPT) 38 Total Bilirubin 0.2 Sodium Level 137 Potassium Level 3.9 Chloride Level 105 Carbon Dioxide Level 21.9 Anion Gap 10 Estimat Glomerular Filtration Rate 96 Diagnosis Primary Impression: Cocaine abuse Additional Impression: Alcohol abuse Ruled Out: Suicidal ideation Psychiatrically Cleared: Yes Med/ Other Pt Specific Info: No Change to Meds Disposition: 01 DISCHARGE HOME Condition: Stable Problem Qualifiers Rachana Encinas Nov 14, 2016 08:57
--- NOTE | 2016-11-14 09:43 | PD ---
Physical Exam Date Seen by Provider: Nov 14, 2016 Time Seen by Provider: 09:42 Data Data Last Documented VS Vital Signs Date Time Temp Pulse Resp B/P (MAP) Pulse Ox O2 Delivery O2 Flow Rate FiO2 11/14/16 09:45 11/14/16 06:45 66 18 99 Room Air 11/13/16 17:45 97.8 Orders Orders Complete Blood Count With Diff (11/13/16 17:49) Comprehensive Metabolic Panel (11/13/16 17:49) Psych Screen (11/13/16 17:49) Drug Screen, Random Urine (11/13/16 17:49) Amlodipine (Norvasc) (11/14/16 08:45) Losartan (Cozaar) (11/14/16 08:45) Labs Laboratory Tests Test 11/13/16 17:25 11/13/16 17:50 Urine Opiates Screen NEG Urine Barbiturates Screen NEG Urine Amphetamines Screen NEG Urine Benzodiazepines Screen NEG Urine Cocaine Screen POS Urine Cannabinoids Screen NEG White Blood Count 6.3 TH/MM3 Red Blood Count 4.44 MIL/MM3 Hemoglobin 15.1 GM/DL Hematocrit 42.1 % Mean Corpuscular Volume 94.9 FL Mean Corpuscular Hemoglobin 34.1 PG Mean Corpuscular Hemoglobin Concent 35.9 % Red Cell Distribution Width 13.8 % Platelet Count 222 TH/MM3 Mean Platelet Volume 7.2 FL Neutrophils (%) (Auto) 30.1 % Lymphocytes (%) (Auto) 53.9 % Monocytes (%) (Auto) 12.6 % Eosinophils (%) (Auto) 2.8 % Basophils (%) (Auto) 0.6 % Neutrophils # (Auto) 1.9 TH/MM3 Lymphocytes # (Auto) 3.4 TH/MM3 Monocytes # (Auto) 0.8 TH/MM3 Eosinophils # (Auto) 0.2 TH/MM3 Basophils # (Auto) 0.0 TH/MM3 CBC Comment DIFF FINAL Differential Comment Blood Urea Nitrogen 11 MG/DL Creatinine 0.98 MG/DL Random Glucose 95 MG/DL Total Protein 9.0 GM/DL Albumin 3.6 GM/DL Calcium Level 8.5 MG/DL Alkaline Phosphatase 98 U/L Aspartate Amino Transf (AST/SGOT) 59 U/L Alanine Aminotransferase (ALT/SGPT) 38 U/L Total Bilirubin 0.2 MG/DL Sodium Level 137 MEQ/L Potassium Level 3.9 MEQ/L Chloride Level 105 MEQ/L Carbon Dioxide Level 21.9 MEQ/L Anion Gap 10 MEQ/L Estimat Glomerular Filtration Rate 96 ML/MIN MDM Supervised Visit with CHARITO: No Narrative Course I was asked to discharge this patient who was originally brought in under Burdick act. He was evaluated by Titus Estrada PA-C and medically cleared. He was then evaluated by WENDY Recinos and the Burdick act was listed. Please see those notes for details. On my exam the patient is alert, oriented, ambulatory, requesting to be discharged. Plan is for the patient to seek outpatient treatment for substance abuse, resume at home medications. He is stable and discharged home. Diagnosis Primary Impression: Cocaine abuse Additional Impression: Alcohol abuse Ruled Out: Suicidal ideation Referrals: [facility] (Out patient) Additional Instruction: Seek outpatient treatment for substance abuse. Resume at home medications as prescribed. Return to the ED for any urgent or emergent medical condition,. Disposition: 01 DISCHARGE HOME Condition: Stable Michell Garcia Nov 14, 2016 09:43
== END 2016-11-14 09:48 | disposition home or self-care (01) ==
LOC: NEDAMB 17:16 → NEPB 11-14 09:48
DX: F14.10 Cocaine abuse, uncomplicated (principal); F10.10 Alcohol abuse, uncomplicated; F43.10 Post-traumatic stress disorder, unspecified; I10 Essential (primary) hypertension; F17.200 Nicotine dependence, unspecified, uncomplicated; Z79.899 Other long term (current) drug therapy
CPT/HCPCS: 80053; 80307; 85025; 99284

== ENCOUNTER 2016-11-30 20:26 | Emergency (ER) | payer OTHER ==
[~2016-11-30] VITALS: Ht 170.2 cm; Wt 76.4 kg
[2016-11-30 20:36] VITALS: BP 168/104; PULSE 97; RESP 20; TEMP 97.8; O2SAT 97
[2016-11-30 21:55] LABS: AUTOMATED NEUTROPHIL # 1.1 TH/MM3 (1.8-7.7); BASOPHIL % 0.8 % (0.0-2.0); EOSINOPHIL # 0.1 TH/MM3 (0-0.4); EOSINOPHIL % 1.9 % (0.0-4.0); HEMATOCRIT 44.6 % (39.0-51.0); LYMPHOCYTE # 3.1 TH/MM3 (1.0-4.8); MEAN CELL VOLUME 96.1 FL (80.0-100.0); MEAN CORPUSCULAR HEMOGLOBIN 33.3 PG (27.0-34.0); MEAN CORPUSCULAR HGB CONC 34.6 % (32.0-36.0); MONO % 8.7 % (0.0-8.0); NEUT % 22.6 % (16.0-70.0); PLATELET COUNT 149 TH/MM3 (150-450); RED BLOOD COUNT 4.64 MIL/MM3 (4.50-5.90); RED CELL DISTRIBUTION WIDTH 14.3 % (11.6-17.2); WHITE BLOOD COUNT 4.7 TH/MM3 (4.0-11.0)
[2016-11-30 21:59] LABS: HEMO FLAGS AUTO DIFF
[2016-11-30] MEDS ORDERED: LORazepam 1 MG TAB PO ONE (22:00)
[2016-11-30 22:20] LABS: ALT (GPT) 64 U/L (12-78); ANION GAP 9 MEQ/L (5-15); AST (GOT) 110 U/L (15-37); BICARBONATE 21.8 MEQ/L (21.0-32.0); BLOOD UREA NITROGEN 9 MG/DL (7-18); CHLORIDE 109 MEQ/L (98-107); GLOMERULAR FILTRATION RATE 112 ML/MIN (>89); POTASSIUM 3.7 MEQ/L (3.5-5.1); SODIUM (NA) 140 MEQ/L (136-145)
[2016-11-30 22:24] LABS: ALKALINE PHOSPHATASE 106 U/L (45-117); TOTAL BILIRUBIN ADULT 0.3 MG/DL (0.2-1.0)
[2016-11-30 22:25] LABS: ALCOHOL 308 MG/DL (0-5)
[2016-11-30 23:10] LABS: PLATELET ESTIMATE SMEAR LOW (NORMAL); PLATELET MORPHOLOGY NORMAL (NORMAL); SCAN/DIFF AUTO DIFF CONFIRMED
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
[2016-12-01 00:13] VITALS: BP 138/86; PULSE 87; RESP 18; O2SAT 99
[2016-12-01 02:00] VITALS: BP 119/72; PULSE 100; RESP 19; O2SAT 95
[2016-12-01 06:21] VITALS: BP 147/87; PULSE 101; RESP 18; O2SAT 98
[2016-12-01 10:00] VITALS: BP 161/87; PULSE 97; RESP 20
[2016-12-01 14:22] VITALS: BP 154/92; PULSE 88; RESP 18; TEMP 98.6; O2SAT 97
[2016-12-01 18:00] VITALS: BP 174/100; PULSE 65; RESP 17
== END 2016-12-01 18:50 | disposition home or self-care (01) ==
LOC: NEPD 20:26 → NEPJ 12-01 18:50
DX: F10.129 Alcohol abuse with intoxication, unspecified (principal); F17.200 Nicotine dependence, unspecified, uncomplicated; I10 Essential (primary) hypertension; Y90.8 Blood alcohol level of 240 mg/100 ml or more; Z79.899 Other long term (current) drug therapy
CPT/HCPCS: 80053; 80307; 85025; 99284

== ENCOUNTER 2016-12-15 08:51 | Emergency (ER) | payer OTHER ==
[~2016-12-15] VITALS: Ht 167.6 cm; Wt 75.0 kg
[2016-12-15 08:53] VITALS: BP 152/99; PULSE 99; RESP 20; TEMP 98; O2SAT 98
--- NOTE | 2016-12-15 09:09 | PD ---
HPI Chief Complaint: Psychiatric Symptoms Time Seen by Provider: 09:07 Travel History International Travel<30 days: No Contact w/Intl Traveler<30days: No Traveled to known affect area: No History of Present Illness HPI 56-year-old male presents to the emergency Department voluntarily for psychiatric evaluation. Says he's been feeling sad and depressed and can't get his head straight for over a month. Symptoms are exacerbated with drinking and doing drugs. He said he's been drinking alcohol this morning and last smoked crack cocaine yesterday. Denies suicidal or homicidal ideations. Says his attempted suicide in the past by sitting in the middle of the street. Denies visual or auditory hallucinations. No known relieving factors. Has no current emergent medical complaints. Denies chest pain, shortness of breath, abdominal pain, nausea, vomiting, fevers, change in urine or stool. Allergies to atorvastatin. Hasn't established primary care provider "down the street." Has no other medical complaints. No other modifying factors or associated signs and symptoms. PFSH Past Medical History Anxiety: Yes Depression: Yes Cardiovascular Problems: Yes Diabetes: No Diminished Hearing: No Hypertension: Yes Musculoskeletal: Yes Respiratory: Yes Immunizations Current: Yes Past Surgical History Other Surgery: Yes (hernia repair ; jaw surgery) Social History Alcohol Use: Yes ((3) 16 oz beers per day) Tobacco Use: Yes (1/2 ppd) Substance Use: Yes (marijuana) Allergies-Medications (Allergen,Severity, Reaction): Coded Allergies: atorvastatin (Verified Allergy, Unknown, Swelling, 12/15/16) Reported Meds & Prescriptions Reported Meds & Active Scripts Active No Active Prescriptions or Reported Medications Review of Systems Except as stated in HPI: all other systems reviewed are Neg Physical Exam Narrative GENERAL: Well-nourished, well-developed black male patient, in no acute distress ; restless SKIN: Warm and dry. HEAD: Atraumatic. Normocephalic. EYES: Pupils equal and round. ENT: Mucosa pink and moist. NECK: Supple. Trachea midline. CARDIOVASCULAR: Regular rate and rhythm. No murmur appreciated. RESPIRATORY: No accessory muscle use. Clear to auscultation. Breath sounds equal bilaterally. GASTROINTESTINAL: Abdomen soft, non-tender, nondistended. Hepatic and splenic margins not palpable. Bowel sounds are active 4 quadrants. MUSCULOSKELETAL: No obvious deformities. No clubbing. No cyanosis. No edema. NEUROLOGICAL: Awake and alert. Oriented 3. No obvious cranial nerve deficits. Motor grossly within normal limits. Normal speech. Moves all extremities. 5/5 strength to all extremities. PSYCHIATRIC: No delusional thought processes. No hallucinations. Data Data Last Documented VS Vital Signs Date Time Temp Pulse Resp B/P (MAP) Pulse Ox O2 Delivery O2 Flow Rate FiO2 12/15/16 08:53 98.0 99 20 152/99 (116) 98 Orders Orders Complete Blood Count With Diff (12/15/16 09:08) Comprehensive Metabolic Panel (12/15/16 09:08) Psych Screen (12/15/16 09:08) Drug Screen, Random Urine (12/15/16 09:08) Alcohol (Ethanol) (12/15/16 09:08) Salicylates (Aspirin) (12/15/16 09:08) Tylenol (Acetaminophen) (12/15/16 09:08) MDM Medical Decision Making Medical Screen Exam Complete: Yes Emergency Medical Condition: Yes Medical Record Reviewed: Yes Differential Diagnosis Depression, sadness, alcohol intoxication, amphetamine abuse, medical clearance for psychiatric evaluation Narrative Course Patient presents voluntarily for psychiatric evaluation. Physical examination and vital signs are essentially unremarkable. Patient has no medical complaints to report. Psych screen has been ordered. If the laboratory results are unremarkable, the patient will be medically cleared for psychiatric evaluation and disposition. Diagnosis Primary Impression: Medical clearance for psychiatric admission Scripts No Active Prescriptions or Reported Meds Condition: Stable Jo Tsai Dec 15, 2016 09:09
[2016-12-15 09:36] LABS: AUTOMATED NEUTROPHIL # 1.6 TH/MM3 (1.8-7.7); BASOPHIL % 0.6 % (0.0-2.0); EOSINOPHIL % 0.5 % (0.0-4.0); HEMATOCRIT 45.6 % (39.0-51.0); HEMO FLAGS DIFF FINAL; LYMPHOCYTE # 2.5 TH/MM3 (1.0-4.8); MEAN CELL VOLUME 96.6 FL (80.0-100.0); MEAN CORPUSCULAR HEMOGLOBIN 33.5 PG (27.0-34.0); MEAN CORPUSCULAR HGB CONC 34.7 % (32.0-36.0); MONO % 15.4 % (0.0-8.0); NEUT % 33.5 % (16.0-70.0); PLATELET COUNT 168 TH/MM3 (150-450); RED BLOOD COUNT 4.72 MIL/MM3 (4.50-5.90); RED CELL DISTRIBUTION WIDTH 14.8 % (11.6-17.2); WHITE BLOOD COUNT 4.9 TH/MM3 (4.0-11.0)
[2016-12-15 09:54] LABS: ANION GAP 11 MEQ/L (5-15); AST (GOT) 182 U/L (15-37); BICARBONATE 17.9 MEQ/L (21.0-32.0); BLOOD UREA NITROGEN 5 MG/DL (7-18); CHLORIDE 104 MEQ/L (98-107); GLOMERULAR FILTRATION RATE 106 ML/MIN (>89); POTASSIUM 3.7 MEQ/L (3.5-5.1); SODIUM (NA) 133 MEQ/L (136-145)
[2016-12-15 09:55] LABS: ALT (GPT) 69 U/L (12-78)
[2016-12-15 09:57] LABS: ALKALINE PHOSPHATASE 112 U/L (45-117); TOTAL BILIRUBIN ADULT 0.3 MG/DL (0.2-1.0)
[2016-12-15 10:15] LABS: ACETAMINOPHEN LESS THAN 2.0 MCG/ML (10.0-30.0); ALCOHOL 363 MG/DL (0-5)
--- NOTE | 2016-12-15 14:44 | PD ---
History of Present Illness Chief Complaint: Psychiatric Symptoms Time Seen by Provider: 14:30 Travel History International Travel<30 Days: No Contact w/Intl Traveler<30days: No Known affected area: No Legal Status Legal Status: Voluntary History of Present Illness: 56-year-old male presents voluntarily with history of alcohol and substance abuse. Patient is wanting treatment for his substance abuse and this physician recommended [facility]. Patient states he wants to go to the [facility] in [place] but he has no transportation to get there. Patient is reporting no suicidal or homicidal ideation, plan or intent. He has no psychotic symptoms and his cognition is intact. This physician does not feel he meets criteria for psychiatric hospitalization and we are not license for the treatment of alcohol and drug problems. Therefore, he becomes a case of voluntarily admitting himself to [facility] or with the assistance of social work, possibly obtaining transportation to the [facility] in [place]. PFSH Past Medical History Anxiety: Yes Depression: Yes Cardiovascular Problems: Yes Diabetes: No Diminished Hearing: No Hypertension: Yes Musculoskeletal: Yes Respiratory: Yes Immunizations Current: No Past Surgical History Other Surgery: Yes (hernia repair ; jaw surgery) Psychiatric History Psychiatric History Hx Psychiatric Treatment: [facility] IN JULY 2016 Hosp in [place] but doesn't remeber the [facility]- last appt in July. History of Inpatient Treatment: Yes Guns or firearms in home: No Social History Hx Alcohol Use: Yes ((3) 16 oz beers per day) Hx Tobacco Use: Yes (1/2 ppd) Hx Substance Use: Yes (marijuana, crack) Substance Use Type: Alcohol, Crack Other Substances Used: DENIES HISTORY OF WITHDRAWAL SYMPTOMS Hx of Substance Use Treatment: Yes Allergies-Medications (Allergen,Severity, Reaction): Coded Allergies: atorvastatin (Verified Allergy, Unknown, Swelling, 12/15/16) Reported Meds & Prescriptions Reported Meds & Active Scripts Active No Active Prescriptions or Reported Medications Review of Systems Except as stated in HPI: all other systems reviewed are Neg Mental Status Examination Appearance: Appropriate Consciousness: Alert Orientation: x4 Motor Activity: Normal gait Speech: Unremarkable Language: Adequate Fund of Knowledge: Adequate Attention and Concentration: Adequate Memory: Unremarkable Mood: Appropriate Affect: Appropriate Thought Process & Associations: Intact Thought Content: Appropriate Hallucination Type: None Delusion Type: None Suicidal Ideation: No Suicidal Plan: No Suicidal Intention: No Homicidal Ideation: No Homicidal Plan: No Homicidal Intention: No Insight: Adequate Judgment: Adequate MDM Medical Decision Making Medical Record Reviewed: Yes Assessment/Plan Patient interviewed at bedside with nurse Alma and medical record reviewed. Case discussed with nurses Alma and Jo Ann Boss. Patient obviously has a problem with alcohol and drugs. He does not require psychiatric hospitalization. He is wanting treatment for his alcohol and drug problem. This physician feels he should be referred to a facility that is licensed and specializes in alcohol and drug detox/rehabilitation. Orders Orders Complete Blood Count With Diff (12/15/16 09:08) Comprehensive Metabolic Panel (12/15/16 09:08) Psych Screen (12/15/16 09:08) Drug Screen, Random Urine (12/15/16 09:08) Alcohol (Ethanol) (12/15/16 09:08) Salicylates (Aspirin) (12/15/16 09:08) Tylenol (Acetaminophen) (12/15/16 09:08) Results Vital Signs Date Time Temp Pulse Resp B/P (MAP) Pulse Ox O2 Delivery O2 Flow Rate FiO2 12/15/16 08:53 98.0 99 20 152/99 (116) 98 Laboratory Tests Test 12/15/16 09:05 12/15/16 09:15 Urine Opiates Screen NEG Urine Barbiturates Screen NEG Urine Amphetamines Screen NEG Urine Benzodiazepines Screen NEG Urine Cocaine Screen POS Urine Cannabinoids Screen NEG White Blood Count 4.9 Red Blood Count 4.72 Hemoglobin 15.8 Hematocrit 45.6 Mean Corpuscular Volume 96.6 Mean Corpuscular Hemoglobin 33.5 Mean Corpuscular Hemoglobin Concent 34.7 Red Cell Distribution Width 14.8 Platelet Count 168 Mean Platelet Volume 7.2 Neutrophils (%) (Auto) 33.5 Lymphocytes (%) (Auto) 50.0 Monocytes (%) (Auto) 15.4 Eosinophils (%) (Auto) 0.5 Basophils (%) (Auto) 0.6 Neutrophils # (Auto) 1.6 Lymphocytes # (Auto) 2.5 Monocytes # (Auto) 0.8 Eosinophils # (Auto) 0.0 Basophils # (Auto) 0.0 CBC Comment DIFF FINAL Differential Comment Blood Urea Nitrogen 5 Creatinine 0.90 Random Glucose 123 Total Protein 9.2 Albumin 3.5 Calcium Level 8.7 Alkaline Phosphatase 112 Aspartate Amino Transf (AST/SGOT) 182 Alanine Aminotransferase (ALT/SGPT) 69 Total Bilirubin 0.3 Sodium Level 133 Potassium Level 3.7 Chloride Level 104 Carbon Dioxide Level 17.9 Anion Gap 11 Estimat Glomerular Filtration Rate 106 Salicylates Level 4.9 Acetaminophen Level LESS THAN 2.0 Ethyl Alcohol Level 363 Diagnosis Primary Impression: Alcohol abuse Additional Impression: Cocaine abuse Prescriptions No Active Prescriptions or Reported Meds Condition: Stable Problem Qualifiers Bijan Bolanos MD Dec 15, 2016 14:44
--- NOTE | 2016-12-15 15:01 | PD ---
Physical Exam Narrative 56-year-old male was medically cleared by ED physician. Patient was evaluated by psychiatric team. Data Data Last Documented VS Vital Signs Date Time Temp Pulse Resp B/P (MAP) Pulse Ox O2 Delivery O2 Flow Rate FiO2 12/15/16 15:25 12/15/16 15:24 82 20 99 Room Air 12/15/16 08:53 98.0 Orders Orders Complete Blood Count With Diff (12/15/16 09:08) Comprehensive Metabolic Panel (12/15/16 09:08) Psych Screen (12/15/16 09:08) Drug Screen, Random Urine (12/15/16 09:08) Alcohol (Ethanol) (12/15/16 09:08) Salicylates (Aspirin) (12/15/16 09:08) Tylenol (Acetaminophen) (12/15/16 09:08) Ed Discharge Order (12/15/16 15:05) Labs Laboratory Tests Test 12/15/16 09:05 12/15/16 09:15 Urine Opiates Screen NEG Urine Barbiturates Screen NEG Urine Amphetamines Screen NEG Urine Benzodiazepines Screen NEG Urine Cocaine Screen POS Urine Cannabinoids Screen NEG White Blood Count 4.9 TH/MM3 Red Blood Count 4.72 MIL/MM3 Hemoglobin 15.8 GM/DL Hematocrit 45.6 % Mean Corpuscular Volume 96.6 FL Mean Corpuscular Hemoglobin 33.5 PG Mean Corpuscular Hemoglobin Concent 34.7 % Red Cell Distribution Width 14.8 % Platelet Count 168 TH/MM3 Mean Platelet Volume 7.2 FL Neutrophils (%) (Auto) 33.5 % Lymphocytes (%) (Auto) 50.0 % Monocytes (%) (Auto) 15.4 % Eosinophils (%) (Auto) 0.5 % Basophils (%) (Auto) 0.6 % Neutrophils # (Auto) 1.6 TH/MM3 Lymphocytes # (Auto) 2.5 TH/MM3 Monocytes # (Auto) 0.8 TH/MM3 Eosinophils # (Auto) 0.0 TH/MM3 Basophils # (Auto) 0.0 TH/MM3 CBC Comment DIFF FINAL Differential Comment Blood Urea Nitrogen 5 MG/DL Creatinine 0.90 MG/DL Random Glucose 123 MG/DL Total Protein 9.2 GM/DL Albumin 3.5 GM/DL Calcium Level 8.7 MG/DL Alkaline Phosphatase 112 U/L Aspartate Amino Transf (AST/SGOT) 182 U/L Alanine Aminotransferase (ALT/SGPT) 69 U/L Total Bilirubin 0.3 MG/DL Sodium Level 133 MEQ/L Potassium Level 3.7 MEQ/L Chloride Level 104 MEQ/L Carbon Dioxide Level 17.9 MEQ/L Anion Gap 11 MEQ/L Estimat Glomerular Filtration Rate 106 ML/MIN Salicylates Level 4.9 MG/DL Acetaminophen Level LESS THAN 2.0 MCG/ML Ethyl Alcohol Level 363 MG/DL MDM Supervised Visit with CHARITO: Yes Narrative Course Patient was seen by psychiatric team this morning and was cleared to be discharged. Advised [facility]. Diagnosis Primary Impression: Alcohol abuse Additional Impression: Cocaine abuse Patient Instructions: General Instructions Additional Instruction: Advised [facility] for detox. Med/Other Pt SpecificInfo: No Change to Meds Scripts No Active Prescriptions or Reported Meds Disposition: 01 DISCHARGE HOME Condition: Stable Ab Lara MD Dec 15, 2016 15:01
[2016-12-15 15:24] VITALS: BP 145/88; PULSE 82; RESP 20; O2SAT 99
== END 2016-12-15 15:53 | disposition home or self-care (01) ==
LOC: NEPD 08:51
DX: F10.10 Alcohol abuse, uncomplicated (principal); F14.10 Cocaine abuse, uncomplicated; F17.200 Nicotine dependence, unspecified, uncomplicated; F41.9 Anxiety disorder, unspecified; F32.9 Major depressive disorder, single episode, unspecified; I10 Essential (primary) hypertension
CPT/HCPCS: 80053; 80307; 85025; 99284

== ENCOUNTER 2017-04-14 11:59 | Observation (INO) | payer OTHER ==
[~2017-04-14] VITALS: Ht 167.6 cm; Wt 75.0 kg
[2017-04-14] VITALS (7 sets, daily range): BP systolic 138–171; BP diastolic 71–100; PULSE 73–110; RESP 18–24; TEMP 97.8–98.4; O2SAT 96–99
--- NOTE | 2017-04-14 12:30 | PD ---
HPI Chief Complaint: Chest Pain Time Seen by Provider: 12:18 Travel History International Travel<30 days: No Contact w/Intl Traveler<30days: No Traveled to known affect area: No History of Present Illness HPI 56yo M with PMH of HTN, alcohol abuse, crack cocaine use presents to the ED with c/o chest pain. Said it is intermittent and comes and goes for 2 weeks. Pain is throbbing and is sometimes in right chest and sometimes in left chest. Associated with sob. Denies any fever, n/v, abdominal pain, focal weakness or numbness. Pt also has hiccups for 1 month. +Cig smoker. +Crack cocaine use 2 days ago. Last drank alcohol today, said a few beers. Said last stress test was 10 years ago. Does not have box tender. PFSH Past Medical History Anxiety: Yes Depression: Yes Cardiovascular Problems: Yes (HTN) Diabetes: No Diminished Hearing: No Hypertension: Yes Musculoskeletal: Yes Psychiatric: Yes Respiratory: Yes Immunizations Current: No Tetanus Vaccination: < 5 Years Influenza Vaccination: Yes Past Surgical History Abdominal Surgery: Yes (hernia) Oral Surgery: Yes Other Surgery: Yes (hernia repair ; jaw surgery) Social History Alcohol Use: Yes ((3) 16 oz beers per day) Tobacco Use: Yes (1/2 ppd) Substance Use: Yes (marijuana, crack 2 DAYS AGO) Allergies-Medications (Allergen,Severity, Reaction): Coded Allergies: atorvastatin (Verified Allergy, Unknown, Swelling, 12/15/16) Reported Meds & Prescriptions Reported Meds & Active Scripts Active No Active Prescriptions or Reported Medications Review of Systems Except as stated in HPI: all other systems reviewed are Neg Physical Exam Narrative GENERAL: 56yo M in mild distress. SKIN: Focused skin assessment warm/dry. HEAD: Atraumatic. Normocephalic. EYES: Pupils equal and round. EOMI. ENT: No nasal bleeding or discharge. Mucous membranes pink and moist. NECK: Trachea midline. No JVD. CARDIOVASCULAR: Regular rate and rhythm. No murmur appreciated. RESPIRATORY: No accessory muscle use. Clear to auscultation. Breath sounds equal bilaterally. GASTROINTESTINAL: Abdomen soft, non-tender, nondistended. MUSCULOSKELETAL: No obvious deformities. No clubbing. No cyanosis. No edema. NEUROLOGICAL: Awake and alert. +Alcohol on breath but clinically sober. No obvious cranial nerve deficits. Motor grossly within normal limits in all extremities. Sensation intact. Normal speech. Data Data Last Documented VS Vital Signs Date Time Temp Pulse Resp B/P (MAP) Pulse Ox O2 Delivery O2 Flow Rate FiO2 04/14/17 12:43 77 22 97 Room Air 04/14/17 12:11 97.9 138/83 (101) Orders Orders Electrocardiogram (04/14/17 12:18) Basic Metabolic Panel (Bmp) (04/14/17 12:18) Complete Blood Count With Diff (04/14/17 12:18) Magnesium (Mg) (04/14/17 12:18) Prothrombin Time / Inr (Pt) (04/14/17 12:18) Act Partial Throm Time (Ptt) (04/14/17 12:18) Troponin I (04/14/17 12:18) Chest, Single Ap (04/14/17 12:18) Alcohol (Ethanol) (04/14/17 12:18) Admit Order (Ed Use Only) (04/14/17 13:56) Labs Laboratory Tests Test 04/14/17 12:30 White Blood Count 5.8 TH/MM3 Red Blood Count 4.15 MIL/MM3 Hemoglobin 14.0 GM/DL Hematocrit 39.2 % Mean Corpuscular Volume 94.4 FL Mean Corpuscular Hemoglobin 33.7 PG Mean Corpuscular Hemoglobin Concent 35.8 % Red Cell Distribution Width 13.2 % Platelet Count 103 TH/MM3 Mean Platelet Volume 7.1 FL Neutrophils (%) (Auto) 42.5 % Lymphocytes (%) (Auto) 45.9 % Monocytes (%) (Auto) 9.6 % Eosinophils (%) (Auto) 0.5 % Basophils (%) (Auto) 1.5 % Neutrophils # (Auto) 2.4 TH/MM3 Lymphocytes # (Auto) 2.6 TH/MM3 Monocytes # (Auto) 0.6 TH/MM3 Eosinophils # (Auto) 0.0 TH/MM3 Basophils # (Auto) 0.1 TH/MM3 CBC Comment DIFF FINAL Differential Comment Prothrombin Time 10.2 SEC Prothromb Time International Ratio 1.0 RATIO Activated Partial Thromboplast Time 25.2 SEC Blood Urea Nitrogen 8 MG/DL Creatinine 0.91 MG/DL Random Glucose 96 MG/DL Calcium Level 8.5 MG/DL Magnesium Level 1.9 MG/DL Sodium Level 138 MEQ/L Potassium Level 3.4 MEQ/L Chloride Level 106 MEQ/L Carbon Dioxide Level 25.2 MEQ/L Anion Gap 7 MEQ/L Estimat Glomerular Filtration Rate 105 ML/MIN Troponin I LESS THAN 0.02 NG/ML Ethyl Alcohol Level 231 MG/DL [facility] Medical Decision Making Medical Screen Exam Complete: Yes Emergency Medical Condition: Yes Interpretation(s) EKG: NSR 74bpm. Normal axis. LVH. TWI I, aVL, V4, V5 which is new except for V5. Differential Diagnosis ACS vs. GERD vs. alcohol intoxication vs. musculoskeletal pain Narrative Course 56yo M with HTN, cig smoking, alcohol abuse, cocaine use here with atypical chest pain. However, pt does have cardiac risk factors and has not had a cardiac stress test for 10 years. Will obtain EKG, labs including cardiac enzyme and CXR. Pt given aspirin 324mg PO and a spray of nitroglycerin by EVAC. Labs reviewed, no leukocytosis. H/H normal. Mild thrombocytopenia at 103,000. Troponin negative. K:3.4. Blood alcohol 231. Pt is clinically sober. CXR showed no acute disease. Since pt has not had stress test for 10 years and has significant cardiac risk factors, will observe in chest pain center for serial EKG and cardiac enzymes. Diagnosis Primary Impression: Chest pain Qualified Codes: R07.9 - Chest pain, unspecified Admitting Information Admitting Physician Requests: Observation Scripts No Active Prescriptions or Reported Meds Christen Fonseca DO Apr 14, 2017 12:30
[2017-04-14 12:46] LABS: AUTOMATED NEUTROPHIL # 2.4 TH/MM3 (1.8-7.7); BASOPHIL # 0.1 TH/MM3 (0-0.2); BASOPHIL % 1.5 % (0.0-2.0); EOSINOPHIL % 0.5 % (0.0-4.0); HEMATOCRIT 39.2 % (39.0-51.0); LYMPH % 45.9 % (9.0-44.0); LYMPHOCYTE # 2.6 TH/MM3 (1.0-4.8); MEAN CELL VOLUME 94.4 FL (80.0-100.0); MEAN CORPUSCULAR HEMOGLOBIN 33.7 PG (27.0-34.0); MEAN CORPUSCULAR HGB CONC 35.8 % (32.0-36.0); MEAN PLATELET VOLUME 7.1 FL (7.0-11.0); MONO % 9.6 % (0.0-8.0); MONOCYTE # 0.6 TH/MM3 (0-0.9); NEUT % 42.5 % (16.0-70.0); PLATELET COUNT 103 TH/MM3 (150-450); RED BLOOD COUNT 4.15 MIL/MM3 (4.50-5.90); RED CELL DISTRIBUTION WIDTH 13.2 % (11.6-17.2); WHITE BLOOD COUNT 5.8 TH/MM3 (4.0-11.0)
--- NOTE | 2017-04-14 12:46 | RADRPT ---
EXAM DATE/TIME: 04/14/2017 12:25 [facility] COMPARISON: CHEST SINGLE AP, June 04, 2016, 11:42. INDICATIONS : Chest pain. MEDICAL HISTORY : Hypertension. SURGICAL HISTORY : None. ENCOUNTER: Initial ACUITY: 1 month PAIN SCORE: 5/10 LOCATION: Bilateral chest FINDINGS: A single view of the chest demonstrates the lungs to be symmetrically aerated without evidence of mas s, infiltrate or effusion. Mildly prominent for patient respiration.. Osseous structures are intact . CONCLUSION: No acute disease. Nicolas Sanchez MD FACR on April 14, 2017 at 12:44 Board Certified Radiologist. This report was verified electronically.
[2017-04-14 12:56] LABS: PROTHROMBIN TIME - PATIENT 10.2 SEC (9.8-11.6)
[2017-04-14 13:13] LABS: BICARBONATE 25.2 MEQ/L (21.0-32.0); BLOOD UREA NITROGEN 8 MG/DL (7-18); CALCIUM 8.5 MG/DL (8.5-10.1); CHLORIDE 106 MEQ/L (98-107); CREATININE 0.91 MG/DL (0.60-1.30); GLOMERULAR FILTRATION RATE 105 ML/MIN (>89); GLUCOSE,RANDOM 96 MG/DL (74-106); MAGNESIUM 1.9 MG/DL (1.5-2.5); SODIUM (NA) 138 MEQ/L (136-145)
[2017-04-14 13:18] LABS: TROPONIN I LESS THAN 0.02 NG/ML (0.02-0.05)
[2017-04-14] MEDS ORDERED: AMLO5TAB2 PO (14:07)
[2017-04-14] MEDS ORDERED: QUET1TAB9 PO (14:07)
[2017-04-14] MEDS ORDERED: MIRTA15 PO (14:07)
[2017-04-14] MEDS ORDERED: CLON0.1T PO (14:07)
[2017-04-14] MEDS ORDERED: ESCI10TA PO (14:07)
[2017-04-14] MEDS ORDERED: LOSA100T PO (14:07)
[2017-04-14] MEDS ORDERED: BISACODYL 10 MG SUPP RECTAL PRN (15:30)
[2017-04-14] MEDS ORDERED: ACETAMINOPHEN 325 MG TAB PO PRN (15:30)
[2017-04-14] MEDS ORDERED: MAGNESIUM HYDROXIDE SUSP 30 ML CUP PO PRN (15:30)
[2017-04-14] MEDS ORDERED: NALOXONE HCL 0.4 MG/ML AMP IV PUSH PRN (15:30)
[2017-04-14] MEDS ORDERED: SODIUM CHLORIDE 0.9% FLUSH 10 ML FLUSH IV FLUSH PRN (15:30)
[2017-04-14] MEDS ORDERED: POTASSIUM CHLORIDE 10 MEQ CONTROLLED RELEASE TAB PO ONE (15:30)
[2017-04-14] MEDS ORDERED: SENNOSIDES 8.6 MG TAB PO PRN (15:30)
[2017-04-14] MEDS ORDERED: ONDANSETRON HCL 4 MG/2 ML VIAL IVP PRN (15:30)
--- NOTE | 2017-04-14 15:44 | HHI.HP ---
[facility] Service [place] [facility] Primary Care Physician No Primary Care Physician Admission Diagnosis Chest pain Diagnoses: (1) Chest pain Chief Complaint: Chest pain Travel History International Travel<30 Days: No Contact w/Intl Traveler <30 Da: No Traveled to Known Affected Are: No History of Present Illness This is a 56-year-old male patient with a known medical history of hypertension , alcohol abuse, cocaine use and depression who presented to the ED with complaints of chest pain. Patient states that he has had intermittent chest pain for the last 3 days, the chest pain is located in his left-sided chest, characterized as squeezing in nature, radiates to his left leg, rated a 7 out of 10 on pain scale, is intermittent lasting several hours, is relieved with relaxing and laying down, denies any aggravating factors. Patient does admit to associated nausea, vomiting, shortness of breath, diaphoresis and hot sweats. Patient denies any recent illness including fever, chills, abdominal pain, diarrhea or dysuria. Patient does admit to a chronic cough with clear phlegm. He does admit to using crack cocaine 2 days ago, with his last drink of alcohol today. Patient underwent a cardiac stress test 20 years ago for complaints of chest pain at the time which was reportedly negative. Does not follow with a loss control manager. Does admit to daily tobacco use. Review of Systems Constitutional: DENIES: Fever, Chills Eyes: DENIES: Blurred vision, Diplopia Respiratory: COMPLAINS OF: Cough, Shortness of breath, DENIES: Sputum production Cardiovascular: COMPLAINS OF: Chest pain, DENIES: Palpitations Gastrointestinal: COMPLAINS OF: Nausea, Vomiting, DENIES: Abdominal pain, Black stools, Bloody stools, Constipation, Diarrhea Hematologic/lymphatic: DENIES: Bruising Immunologic/allergic: DENIES: Eczema Neurologic: DENIES: Abnormal gait Psychiatric: COMPLAINS OF: Anxiety, Depression Except as stated in HPI: all other systems reviewed are Neg Past Family Social History Past Medical History Anxiety Depression Hypertension Tobacco abuse Alcohol abuse Crack cocaine abuse Past Surgical History Hiatal hernia repair Jaw surgery and specified Reported Medications Active Reported Mirtazapine 15 Mg Tab 15 Mg PO HS Escitalopram (Escitalopram Oxalate) 10 Mg Tab 10 Mg PO DAILY Clonidine (Clonidine HCl) 0.1 Mg Tab 0.1 Mg PO BID Quetiapine (Quetiapine Fumarate) 200 Mg Tab 200 Mg PO HS Amlodipine (Amlodipine Besylate) 5 Mg Tab 5 Mg PO DAILY Losartan (Losartan Potassium) 100 Mg Tab 100 Mg PO DAILY Allergies: Coded Allergies: atorvastatin (Verified Allergy, Unknown, Swelling, 04/14/17) Active Ordered Medications Current Medications Medications (Trade) Dose Ordered Sig/Naomi Route Start Time Stop Time Status Last Admin (NS Flush) 2 ml UNSCH PRN IV FLUSH 04/14/17 15:30 (NS Flush) 2 ml BID IV FLUSH 04/14/17 21:00 (Tylenol) 650 mg Q4H PRN PO 04/14/17 15:30 (Zofran Inj) 4 mg Q6H PRN IVP 04/14/17 15:30 (Narcan Inj) 0.4 mg UNSCH PRN IV PUSH 04/14/17 15:30 (Simona-Colace) 1 tab BID PO 04/14/17 21:00 (Milk Of Magnesia Liq) 30 ml Q12H PRN PO 04/14/17 15:30 (Senokot) 17.2 mg Q12H PRN PO 04/14/17 15:30 (Dulcolax Supp) 10 mg DAILY PRN RECTAL 04/14/17 15:30 Family History Paternal medical history significant for cirrhosis, was an alcoholic. Maternal medical history significant for stroke and cardiovascular disease. Social History Patient admits to smoking half pack per day of cigarettes 20 years. Does admit to 5 beers daily for the past 20 years. Does admit to frequent cocaine use, last used 2 days ago. Physical Exam Vital Signs Vital Signs Date Time Temp Pulse Resp B/P (MAP) Pulse Ox O2 Delivery O2 Flow Rate FiO2 04/14/17 15:20 04/14/17 15:00 75 18 140/71 (94) 97 Room Air 04/14/17 12:43 77 22 97 Room Air 04/14/17 12:11 97.9 76 20 138/83 (101) 99 Physical Exam GENERAL: Well-developed, well-nourished male patient. SKIN: Warm and dry. No rash. HEAD: Normocephalic. Atraumatic. EYES: Pupils equal and round. No scleral icterus. No injection or drainage. ENT: No nasal bleeding or discharge. Mucous membranes pink and moist. NECK: Supple. Trachea midline. CARDIOVASCULAR: Regular rate and rhythm. S1, S2 noted. No murmur appreciated. No chest pain to palpation RESPIRATORY: No accessory muscle use. Clear to auscultation. Breath sounds equal bilaterally. GASTROINTESTINAL: Abdomen soft, non-tender, nondistended. Normoactive bowel sounds x4. MUSCULOSKELETAL: No obvious deformities. Extremities without clubbing, cyanosis , or edema. NEUROLOGICAL: Awake and alert. No obvious cranial nerve deficits. Motor grossly within normal limits. 5/5 muscle strength in bilateral upper and lower extremities. Normal speech. Laboratory Laboratory Tests Test 04/14/17 12:30 White Blood Count 5.8 Red Blood Count 4.15 Hemoglobin 14.0 Hematocrit 39.2 Mean Corpuscular Volume 94.4 Mean Corpuscular Hemoglobin 33.7 Mean Corpuscular Hemoglobin Concent 35.8 Red Cell Distribution Width 13.2 Platelet Count 103 Mean Platelet Volume 7.1 Neutrophils (%) (Auto) 42.5 Lymphocytes (%) (Auto) 45.9 Monocytes (%) (Auto) 9.6 Eosinophils (%) (Auto) 0.5 Basophils (%) (Auto) 1.5 Neutrophils # (Auto) 2.4 Lymphocytes # (Auto) 2.6 Monocytes # (Auto) 0.6 Eosinophils # (Auto) 0.0 Basophils # (Auto) 0.1 CBC Comment DIFF FINAL Differential Comment Prothrombin Time 10.2 Prothromb Time International Ratio 1.0 Activated Partial Thromboplast Time 25.2 Blood Urea Nitrogen 8 Creatinine 0.91 Random Glucose 96 Calcium Level 8.5 Magnesium Level 1.9 Sodium Level 138 Potassium Level 3.4 Chloride Level 106 Carbon Dioxide Level 25.2 Anion Gap 7 Estimat Glomerular Filtration Rate 105 Troponin I LESS THAN 0.02 Ethyl Alcohol Level 231 Result Diagram: 04/14/17 1230 04/14/17 1230 Imaging Last Impressions Chest X-Ray 04/14/17 1218 Signed Impressions: Service Date/Time: Friday, April 14, 2017 12:25 - CONCLUSION: No acute disease. Nicolas Sanchez MD FACR Septic Shock Reassessment Septic shock perfusion: reassessment completed Caprini VTE Risk Assessment Caprini VTE Risk Assessment: No/Low Risk (score <= 1) Caprini Risk Assessment Model Point Value = 1 Point Value = 2 Point Value = 3 Point Value = 5 Age 41-60 Minor surgery BMI > 25 kg/m2 Swollen legs Varicose veins or History of unexplained or recurrent spontaneous Oral contraceptives or hormone replacement Sepsis (< 1 month) Serious lung disease, including pneumonia (< 1 month) Abnormal pulmonary function Acute myocardial infarction Congestive heart failure (< 1 month) History of inflammatory bowel disease Medical patient at bed rest Age 61-74 Arthroscopic surgery Major open surgery (> 45 min) Laparoscopic surgery (> 45 min) Malignancy Confined to bed (> 72 hours) Immobilizing plaster cast Central venous access Age >= 75 History of VTE Family history of VTE Factor V Leiden Prothrombin [id number] Lupus anticoagulant Anticardiolipin antibodies Elevated serum homocysteine Heparin-induced thrombocytopenia Other congenital or acquired thrombophilia Stroke (< 1 month) Elective arthroplasty Hip, pelvis, or leg fracture Acute spinal cord injury (< 1 month) Prophylaxis Regimen Total Risk Factor Score Risk Level Prophylaxis Regimen 0-1 Low Early ambulation 2 Moderate Order ONE of the following: *Sequential Compression Device (SCD) *Heparin 5000 units SQ BID 3-4 Higher Order ONE of the following medications: *Heparin 5000 units SQ TID *Enoxaparin/Lovenox 40 mg SQ daily (WT < 150 kg, CrCl > 30 mL/min) *Enoxaparin/Lovenox 30 mg SQ daily (WT < 150 kg, CrCl > 10-29 mL/min) *Enoxaparin/Lovenox 30 mg SQ BID (WT < 150 kg, CrCl > 30 mL/min) AND/OR *Sequential Compression Device (SCD) 5 or more Highest Order ONE of the following medications: *Heparin 5000 units SQ TID (Preferred with Epidurals) *Enoxaparin/Lovenox 40 mg SQ daily (WT < 150 kg, CrCl > 30 mL/min) *Enoxaparin/Lovenox 30 mg SQ daily (WT < 150 kg, CrCl > 10-29 mL/min) *Enoxaparin/Lovenox 30 mg SQ BID (WT < 150 kg, CrCl > 30 mL/min) AND *Sequential Compression Device (SCD) Assessment and Plan Problem List: (1) Chest pain ICD Code: R07.9 - Chest pain, unspecified Status: Acute Assessment and Plan This is a 56-year-old male patient with a known medical history of hypertension , alcohol abuse, cocaine use and depression who presented to the ED with complaints of chest pain. Chest pain Patient has been admitted to the chest pain center for observation. Serial EKGs and serial troponins have been ordered for ruling out ACS purposes. Initial troponin flat, follow trend. EKG reviewed, normal sinus rhythm with controlled heart rate, no ST changes, LVH present. Chest x-ray reviewed, no acute disease. Vital signs are stable on presentation. CBC and BMP reviewed, thrombocytopenia noted platelets 103, likely secondary to chronic alcohol abuse. Monitor. If ACS ruled out per protocol with serial EKGs and serial troponins, patient will undergo a cardiac stress test tomorrow a.m. to further rule out any suspicion for ischemia. N.p.o. after midnight. Heart healthy diet for now. Continue cardiac telemetry, monitor for any arrhythmias. Patient stable at this time and agreeable to the plan. Mild hypokalemia: K 3.4 presentation. Replace. Follow BMP in a.m. Hypertension, chronic: BP stable on presentation. Continue to monitor BP trends. Continue home medications. Alcohol abuse with associated thrombocytopenia: Ethyl alcohol 231. Platelets 103. strongly encouraged cessation. CIWA protocol. Seizure precautions. Monitor for withdrawal. Tobacco and cocaine abuse: Strongly encouraged cessation. DVT prophylaxis: SCDs. Problem Qualifiers (1) Chest pain: Qualified Codes: R07.9 - Chest pain, unspecified Vilma Flores Apr 14, 2017 15:44
[2017-04-14] MEDS ORDERED: LORazepam 2 MG/ML VIAL IV PUSH PRN ×4 (16:00)
[2017-04-14] MEDS ORDERED: LORazepam 2 MG TAB PO PRN (16:00)
[2017-04-14] MEDS ORDERED: LORazepam 1 MG TAB PO PRN (16:00)
[2017-04-14] MEDS ORDERED: FLUMAZENIL 0.5 MG/5 ML VIAL IV PUSH PRN (16:00)
[2017-04-14] MEDS: cloNIDine HCL 0.1 MG TAB PO PRN (16:07)
[2017-04-14 16:28] LABS: TROPONIN I 0.03 NG/ML (0.02-0.05)
--- NOTE | 2017-04-14 16:34 | PD.CARD.PN ---
Subjective Subjective Remarks Patient's medical history was reviewed, discussed with nurse practitioner, seen and examined personally. Patient is a 56-year-old alcoholic (by his admission) who provided slightly different historical information to both the nurse practitioner and I. I am in agreement with all of the documentation given that I add the following additional information. The patient tells me he has had the same sort of chest pain off and on over a five-year period of time. He usually has 2-3 episodes a week. The pain is usually upper epigastric low chest radiating into the stomach and into the left leg. He has nausea and vomiting on many mornings but has not brought up any blood. He also has a problem with chronic hiccups. He admits to the use of cocaine for many years "but not a lot". He admits to drinking only alcohol he can get. He has been to [facility] and all of the local rehab facilities to request voluntary admission but has been turned down are told there were no beds. He would actually like to have some help getting off alcohol. The rest information is provided is in agreement. Objective Medications Current Medications Medications (Trade) Dose Ordered Sig/Naomi Route Start Time Stop Time Status Last Admin (NS Flush) 2 ml UNSCH PRN IV FLUSH 04/14/17 15:30 (NS Flush) 2 ml BID IV FLUSH 04/14/17 21:00 (Tylenol) 650 mg Q4H PRN PO 04/14/17 15:30 (Zofran Inj) 4 mg Q6H PRN IVP 04/14/17 15:30 (Narcan Inj) 0.4 mg UNSCH PRN IV PUSH 04/14/17 15:30 (Simona-Colace) 1 tab BID PO 04/14/17 21:00 (Milk Of Magnesia Liq) 30 ml Q12H PRN PO 04/14/17 15:30 (Senokot) 17.2 mg Q12H PRN PO 04/14/17 15:30 (Dulcolax Supp) 10 mg DAILY PRN RECTAL 04/14/17 15:30 (Norvasc) 5 mg DAILY PO 04/15/17 09:00 (Catapres) 0.1 mg BID PO 04/14/17 21:00 (Lexapro) 10 mg DAILY PO 04/15/17 09:00 (Cozaar) 100 mg DAILY PO 04/15/17 09:00 (Remeron) 15 mg HS PO 04/14/17 21:00 (Folate) 1 mg DAILY PO 04/15/17 09:00 04/20/17 08:59 (Vitamin B1) 100 mg DAILY PO 04/15/17 09:00 (Theragran M Tab) 1 tab DAILY PO 04/15/17 09:00 04/20/17 08:59 (Romazicon Inj) 0.2 mg Q1M PRN IV PUSH 04/14/17 16:00 (Ativan) 1 mg Q4H PRN PO 04/14/17 16:00 (Ativan Inj) 1 mg Q4H PRN IV PUSH 04/14/17 16:00 (Ativan) 2 mg Q2H PRN PO 04/14/17 16:00 (Ativan Inj) 2 mg Q2H PRN IV PUSH 04/14/17 16:00 (Ativan Inj) 2 mg Q1H PRN IV PUSH 04/14/17 16:00 (Ativan Inj) 2 mg Q15M PRN IV PUSH 04/14/17 16:00 (Catapres) 0.1 mg Q6H PRN PO 04/14/17 16:15 04/14/17 16:07 Vital Signs / I&O Vital Signs Date Time Temp Pulse Resp B/P (MAP) Pulse Ox O2 Delivery O2 Flow Rate FiO2 04/14/17 16:09 170/94 (119) 04/14/17 15:59 73 04/14/17 15:53 98.1 83 24 171/100 (123) 99 04/14/17 15:20 04/14/17 15:00 75 18 140/71 (94) 97 Room Air 04/14/17 12:43 77 22 97 Room Air 04/14/17 12:11 97.9 76 20 138/83 (101) 99 Physical Exam Well-nourished well-developed somewhat muscular black male in no acute distress. He is quite cooperative in spite of a blood alcohol of 231. He was experiencing a little bit of nausea while I was in the room. Chest clear to auscultation and percussion with no rales or wheezes but with bronchial fascicular breath sounds. Cardiovascular reveals regular sinus rhythm with no gallops rubs or murmurs. Abdomen is diffusely tender but more so in the epigastric area with no guarding or rebound. He is too tender to accurately evaluate hepatosplenic margin. Laboratory Laboratory Tests Test 04/14/17 12:30 04/14/17 15:45 White Blood Count 5.8 TH/MM3 Red Blood Count 4.15 MIL/MM3 Hemoglobin 14.0 GM/DL Hematocrit 39.2 % Mean Corpuscular Volume 94.4 FL Mean Corpuscular Hemoglobin 33.7 PG Mean Corpuscular Hemoglobin Concent 35.8 % Red Cell Distribution Width 13.2 % Platelet Count 103 TH/MM3 Mean Platelet Volume 7.1 FL Neutrophils (%) (Auto) 42.5 % Lymphocytes (%) (Auto) 45.9 % Monocytes (%) (Auto) 9.6 % Eosinophils (%) (Auto) 0.5 % Basophils (%) (Auto) 1.5 % Neutrophils # (Auto) 2.4 TH/MM3 Lymphocytes # (Auto) 2.6 TH/MM3 Monocytes # (Auto) 0.6 TH/MM3 Eosinophils # (Auto) 0.0 TH/MM3 Basophils # (Auto) 0.1 TH/MM3 CBC Comment DIFF FINAL Differential Comment Prothrombin Time 10.2 SEC Prothromb Time International Ratio 1.0 RATIO Activated Partial Thromboplast Time 25.2 SEC Blood Urea Nitrogen 8 MG/DL Creatinine 0.91 MG/DL Random Glucose 96 MG/DL Calcium Level 8.5 MG/DL Magnesium Level 1.9 MG/DL Sodium Level 138 MEQ/L Potassium Level 3.4 MEQ/L Chloride Level 106 MEQ/L Carbon Dioxide Level 25.2 MEQ/L Anion Gap 7 MEQ/L Estimat Glomerular Filtration Rate 105 ML/MIN Troponin I LESS THAN 0.02 NG/ML Ethyl Alcohol Level 231 MG/DL Imaging Last 24 hours Impressions Chest X-Ray 04/14/17 1218 Signed Impressions: Service Date/Time: Friday, April 14, 2017 12:25 - CONCLUSION: No acute disease. Nicolas Sanchez MD FACR Assessment and Plan Problem List: (1) Abdominal pain ICD Codes: R10.9 - Unspecified abdominal pain Status: Acute Plan: If he rules out for cardiovascular problems he will need referral for GI evaluation. He has Medicaid plus insurance and generally receives his care through the urgent care center (2) Hypertension ICD Codes: I10 - Essential (primary) hypertension Status: Chronic (3) Alcohol intoxication ICD Codes: F10.929 - Alcohol use, unspecified with intoxication, unspecified Status: Chronic (4) Chest pain ICD Codes: R07.9 - Chest pain, unspecified Status: Acute (5) Near syncope ICD Codes: R55 - Syncope and collapse Status: Resolved Problem Qualifiers (1) Chest pain: Qualified Codes: R07.9 - Chest pain, unspecified Matthew Walsh MD Apr 14, 2017 16:34
[2017-04-14 19:25] LABS: TROPONIN I 0.02 NG/ML (0.02-0.05)
[2017-04-14] MEDS ORDERED: MIRTAZAPINE 15 MG TAB PO SCH (21:00)
[2017-04-14] MEDS: DOCUSATE SODIUM 50 MG/SENNA 8.6 MG TAB PO SCH (21:00)
[2017-04-14] MEDS: cloNIDine HCL 0.1 MG TAB PO SCH (23:39)
[2017-04-14] MEDS: SODIUM CHLORIDE 0.9% FLUSH 10 ML FLUSH IV FLUSH SCH (23:40)
[2017-04-15 04:46] VITALS: BP 164/87; PULSE 73; RESP 18; TEMP 98.4; O2SAT 99
[2017-04-15] MEDS: cloNIDine HCL 0.1 MG TAB PO PRN (04:53)
[2017-04-15 07:10] VITALS: PULSE 61
[2017-04-15 07:31] VITALS: BP 142/90; PULSE 62; RESP 20; TEMP 97.8; O2SAT 96
[2017-04-15 07:35] LABS: AUTOMATED NEUTROPHIL # 1.2 TH/MM3 (1.8-7.7); BASOPHIL % 0.7 % (0.0-2.0); EOSINOPHIL # 0.1 TH/MM3 (0-0.4); EOSINOPHIL % 1.9 % (0.0-4.0); HEMOGLOBIN 13.2 GM/DL (13.0-17.0); LYMPHOCYTE # 1.8 TH/MM3 (1.0-4.8); MEAN CELL VOLUME 94.2 FL (80.0-100.0); MEAN CORPUSCULAR HEMOGLOBIN 33.6 PG (27.0-34.0); MEAN CORPUSCULAR HGB CONC 35.6 % (32.0-36.0); MEAN PLATELET VOLUME 8.2 FL (7.0-11.0); MONO % 10.6 % (0.0-8.0); MONOCYTE # 0.4 TH/MM3 (0-0.9); NEUT % 33.8 % (16.0-70.0); PLATELET COUNT 99 TH/MM3 (150-450); RED BLOOD COUNT 3.93 MIL/MM3 (4.50-5.90); RED CELL DISTRIBUTION WIDTH 13.3 % (11.6-17.2); WHITE BLOOD COUNT 3.5 TH/MM3 (4.0-11.0)
[2017-04-15 08:02] LABS: BICARBONATE 23.3 MEQ/L (21.0-32.0); CALCIUM 8.9 MG/DL (8.5-10.1); CREATININE 0.91 MG/DL (0.60-1.30)
[2017-04-15 08:10] LABS: TROPONIN I LESS THAN 0.02 NG/ML (0.02-0.05)
[2017-04-15] MEDS ORDERED: LIDOCAINE VISCOUS 2% SOLN 15 ML UDC PO ONE (08:30)
[2017-04-15] MEDS ORDERED: ALUMINUM/MAGNESIUM/SIMETH 30 ML CUP PO ONE (08:30)
[2017-04-15] MEDS ORDERED: ATROPINE/SCOPOLAM/HYOSCYAM/PB ELIXIR 10 ML CUP PO ONE (08:30)
[2017-04-15] MEDS: DOCUSATE SODIUM 50 MG/SENNA 8.6 MG TAB PO SCH (08:51)
[2017-04-15] MEDS: cloNIDine HCL 0.1 MG TAB PO SCH (08:51)
[2017-04-15] MEDS: PANTOPRAZOLE SOD 40 MG DELAYED RELEASE TAB PO SCH ×2 (08:51→08:54)
[2017-04-15] MEDS: SODIUM CHLORIDE 0.9% FLUSH 10 ML FLUSH IV FLUSH SCH (08:53)
--- NOTE | 2017-04-15 08:57 | PD.CARD.PN ---
Subjective Subjective Remarks Complained of a burning chest discomfort at 730 this morning. Upon evaluation he points to epigastric region to indicate where the discomfort is present. Discomfort was mild at the time I evaluated the patient but he states it was more intense 10 minutes prior. Denies shortness of breath or diaphoresis. He states he felt a little nauseous which he states is not uncommon for him. Admits to having an alcohol problem. Denies taking medication for GI symptoms. Objective Medications Current Medications Medications (Trade) Dose Ordered Sig/Naomi Route Start Time Stop Time Status Last Admin (NS Flush) 2 ml UNSCH PRN IV FLUSH 04/14/17 15:30 (NS Flush) 2 ml BID IV FLUSH 04/14/17 21:00 04/14/17 23:40 (Tylenol) 650 mg Q4H PRN PO 04/14/17 15:30 (Zofran Inj) 4 mg Q6H PRN IVP 04/14/17 15:30 (Narcan Inj) 0.4 mg UNSCH PRN IV PUSH 04/14/17 15:30 (Simona-Colace) 1 tab BID PO 04/14/17 21:00 (Milk Of Magnthelma Liq) 30 ml Q12H PRN PO 04/14/17 15:30 (Senokot) 17.2 mg Q12H PRN PO 04/14/17 15:30 (Dulcolax Supp) 10 mg DAILY PRN RECTAL 04/14/17 15:30 (Norvasc) 5 mg DAILY PO 04/15/17 09:00 (Catapres) 0.1 mg BID PO 04/14/17 21:00 04/14/17 23:39 (Lexapro) 10 mg DAILY PO 04/15/17 09:00 (Cozaar) 100 mg DAILY PO 04/15/17 09:00 (Remeron) 15 mg HS PO 04/14/17 21:00 04/14/17 23:39 (Folate) 1 mg DAILY PO 04/15/17 09:00 04/20/17 08:59 (Vitamin B1) 100 mg DAILY PO 04/15/17 09:00 (Theragran M Tab) 1 tab DAILY PO 04/15/17 09:00 04/20/17 08:59 (Romazicon Inj) 0.2 mg Q1M PRN IV PUSH 04/14/17 16:00 (Ativan) 1 mg Q4H PRN PO 04/14/17 16:00 (Ativan Inj) 1 mg Q4H PRN IV PUSH 04/14/17 16:00 (Ativan) 2 mg Q2H PRN PO 04/14/17 16:00 (Ativan Inj) 2 mg Q2H PRN IV PUSH 04/14/17 16:00 (Ativan Inj) 2 mg Q1H PRN IV PUSH 04/14/17 16:00 (Ativan Inj) 2 mg Q15M PRN IV PUSH 04/14/17 16:00 (Catapres) 0.1 mg Q6H PRN PO 04/14/17 16:15 04/15/17 04:53 (Protonix) 40 mg DAILY PO 04/15/17 08:30 Vital Signs / I&O Vital Signs Date Time Temp Pulse Resp B/P (MAP) Pulse Ox O2 Delivery O2 Flow Rate FiO2 04/15/17 07:31 97.8 62 20 142/90 (107) 96 04/15/17 04:46 98.4 73 18 164/87 (112) 99 04/14/17 23:40 97.8 95 18 141/93 (109) 96 04/14/17 19:25 98.4 110 18 141/78 (99) 99 04/14/17 16:09 170/94 (119) 04/14/17 15:59 73 04/14/17 15:53 98.1 83 24 171/100 (123) 99 04/14/17 15:20 04/14/17 15:00 75 18 140/71 (94) 97 Room Air 04/14/17 12:43 77 22 97 Room Air 04/14/17 12:11 97.9 76 20 138/83 (101) 99 Physical Exam Lungs: CTA Cardiac: RRR without murmur gallop or rub. GI: Some epigastric tenderness. No guarding or rebound. Abdomen is soft. Laboratory Laboratory Tests Test 04/14/17 12:30 04/14/17 15:45 04/14/17 18:29 04/15/17 05:25 White Blood Count 5.8 TH/MM3 3.5 TH/MM3 Red Blood Count 4.15 MIL/MM3 3.93 MIL/MM3 Hemoglobin 14.0 GM/DL 13.2 GM/DL Hematocrit 39.2 % 37.0 % Mean Corpuscular Volume 94.4 FL 94.2 FL Mean Corpuscular Hemoglobin 33.7 PG 33.6 PG Mean Corpuscular Hemoglobin Concent 35.8 % 35.6 % Red Cell Distribution Width 13.2 % 13.3 % Platelet Count 103 TH/MM3 99 TH/MM3 Mean Platelet Volume 7.1 FL 8.2 FL Neutrophils (%) (Auto) 42.5 % 33.8 % Lymphocytes (%) (Auto) 45.9 % 53.0 % Monocytes (%) (Auto) 9.6 % 10.6 % Eosinophils (%) (Auto) 0.5 % 1.9 % Basophils (%) (Auto) 1.5 % 0.7 % Neutrophils # (Auto) 2.4 TH/MM3 1.2 TH/MM3 Lymphocytes # (Auto) 2.6 TH/MM3 1.8 TH/MM3 Monocytes # (Auto) 0.6 TH/MM3 0.4 TH/MM3 Eosinophils # (Auto) 0.0 TH/MM3 0.1 TH/MM3 Basophils # (Auto) 0.1 TH/MM3 0.0 TH/MM3 CBC Comment DIFF FINAL AUTO DIFF Differential Comment AUTO DIFF CONFIRMED Prothrombin Time 10.2 SEC Prothromb Time International Ratio 1.0 RATIO Activated Partial Thromboplast Time 25.2 SEC Blood Urea Nitrogen 8 MG/DL 13 MG/DL Creatinine 0.91 MG/DL 0.91 MG/DL Random Glucose 96 MG/DL 87 MG/DL Calcium Level 8.5 MG/DL 8.9 MG/DL Magnesium Level 1.9 MG/DL Sodium Level 138 MEQ/L 138 MEQ/L Potassium Level 3.4 MEQ/L 3.6 MEQ/L Chloride Level 106 MEQ/L 105 MEQ/L Carbon Dioxide Level 25.2 MEQ/L 23.3 MEQ/L Anion Gap 7 MEQ/L 10 MEQ/L Estimat Glomerular Filtration Rate 105 ML/MIN 105 ML/MIN Troponin I LESS THAN 0.02 NG/ML 0.03 NG/ML 0.02 NG/ML Ethyl Alcohol Level 231 MG/DL Total Creatine Kinase 730 U/L 676 U/L Creatine Kinase MB 3.1 NG/ML 3.1 NG/ML Creatine Kinase MB % 0.4 % 0.5 % Platelet Estimate LOW Platelet Morphology Comment ENLARGED Test 04/15/17 07:30 Total Creatine Kinase 524 U/L Creatine Kinase MB 2.0 NG/ML Creatine Kinase MB % 0.4 % Troponin I LESS THAN 0.02 NG/ML Lipase 185 U/L Imaging Last 24 hours Impressions Chest X-Ray 04/14/17 1218 Signed Impressions: Service Date/Time: Friday, April 14, 2017 12:25 - CONCLUSION: No acute disease. Nicolas Sanchez MD FACR Assessment and Plan Problem List: (1) Abdominal pain ICD Codes: R10.9 - Unspecified abdominal pain Status: Acute Plan: Patient will be given a GI cocktail and started on Protonix. We will also get a lipase. Patient to follow-up with GI after cardiac clearance with stress test. (2) Hypertension ICD Codes: I10 - Essential (primary) hypertension Status: Chronic Plan: Resume home meds. (3) Alcohol intoxication ICD Codes: F10.929 - Alcohol use, unspecified with intoxication, unspecified Status: Chronic Plan: Patient has been counseled importance of no longer abusing alcohol and he should seek help for this process. (4) Chest pain ICD Codes: R07.9 - Chest pain, unspecified Status: Acute Plan: We will get a Lexiscan. If stress test is nonischemic he will be discharged home with instructions to follow-up with PCP and to return to ED for interval issues. (5) Near syncope ICD Codes: R55 - Syncope and collapse Status: Resolved Problem Qualifiers (1) Chest pain: Qualified Codes: R07.9 - Chest pain, unspecified Gerardo Ortiz Apr 15, 2017 08:57
[2017-04-15] MEDS ORDERED: ESCITALOPRAM OXALATE 10 MG TAB PO SCH (09:00)
[2017-04-15] MEDS ORDERED: THIAMINE HCL 100 MG TAB PO SCH (09:00)
[2017-04-15] MEDS ORDERED: MULTIVITAMINS/MINERALS THERAPEUTIC TAB PO SCH (09:00)
[2017-04-15] MEDS ORDERED: LOSARTAN 50 MG TAB PO SCH (09:00)
[2017-04-15] MEDS ORDERED: FOLIC ACID 1 MG TAB PO SCH (09:00)
[2017-04-15] MEDS ORDERED: amLODIPine BESYLATE 5 MG TAB PO SCH (09:00)
[2017-04-15] MEDS ORDERED: REGADENOSON INJ 0.4 MG/5 ML SYR ONE (10:38)
--- NOTE | 2017-04-15 12:24 | RADRPT ---
EXAM DATE/TIME: 04/15/2017 10:20 [facility] COMPARISON: No previous studies available for comparison. INDICATIONS : Chest pain. Alcohol and polysubstance abuse. Angina. DOSE: 27.3 mCi Tc99m Myoview at stress. 8.5 mCi Tc99m Myoview at rest. 0.4 mg Lexiscan STRESS SYMPTOMS: Dyspnea and headache. EJECTION FRACTION: 40% MEDICAL HISTORY : Hypertension. Smoker. ETOH abuse. Polysubstance abuse. SURGICAL HISTORY : Umbilical hernia repair. ENCOUNTER: Initial ACUITY: 1 day PAIN SCALE: 3/10 LOCATION: Bilateral chest TECHNIQUE: The patient underwent pharmacologic stress with infusion of prescribed dose. Continuous ECG tracing was monitored during stress. Gated SPECT imaging was performed after stress and conventional SPECT i maging was performed at rest. The examination was performed on a SPECT/CT scanner, both attenuation and non-corrected datasets were reviewed. FINDINGS: DISTRIBUTION: The maximum perfused segment at stress is in the lateral wall. PERFUSION STUDY: The pattern of perfusion at stress is within normal limits. GATED STUDY: There is intact wall motion and thickening without hypokinetic or dyskinetic segments. CONCLUSION: 1. No definite reversible perfusion defects are identified to suggest stress-induced myocardial ische unruly. 2. Ejection fraction of 40%. RISK CATEGORY: Intermediate (1-3% Annual Mortality Rate) Stiven Carvalho MD on April 15, 2017 at 12:20 Board Certified Radiologist. This report was verified electronically.
[2017-04-15] MEDS ORDERED: PROT40TA PO (12:55)
--- NOTE | 2017-04-15 12:56 | HHI.DCPOC ---
Discharge Care Plan Diagnosis: (1) Chest pain (2) Near syncope (3) Cocaine abuse (4) Alcohol intoxication (5) Tobacco abuse (6) Hypertension (7) Abdominal pain Goals to Promote Your Health * To prevent worsening of your condition and complications * To maintain your health at the optimal level Directions to Meet Your Goals Take your medications as prescribed Follow your dietary instruction Follow activity as directed Keep your appointments as scheduled Take your immunizations and boosters as scheduled If your symptoms worsen call your PCP, if no PCP go to Urgent Care Center or Emergency Room Smoking is Dangerous to Your Health. Avoid second hand smoke Call the 24-hour hour crisis hotline for domestic abuse at Gerardo Ortiz Apr 15, 2017 12:56
--- NOTE | 2017-04-15 15:48 | EKG ---
Date Performed: 04/15/2017 Time Performed: 07:27:17 PTAGE: 56 years EKG: SINUS BRADYCARDIA MINIMAL VOLTAGE CRITERIA FOR LVH, CONSIDER NORMAL VARIANT MODERATE T-WAVE ABNORMALITY, CONSIDER ANTEROLATERAL ISCHEMIA ABNORMAL ECG NO SIG CHANGE NO PREVIOUS TRACING DOCTOR: Matthew Walsh Interpretating Date/Time 04/15/2017 15:47:26
--- NOTE | 2017-04-15 15:50 | EKG ---
Date Performed: 04/14/2017 Time Performed: 15:57:18 PTAGE: 56 years EKG: Sinus rhythm VOLTAGE CRITERIA FOR LVH MODERATE T-WAVE ABNORMALITY, CONSIDER LATERAL ISCHEMIA ABNORMAL ECG RATE SL OWED BUT NO SIG CHANGE PREVIOUS TRACING : 04/14/2017 15.55 DOCTOR: Matthew Walsh Interpretating Date/Time 04/16/2017 07:24:55
--- NOTE | 2017-04-15 15:50 | EKG ---
Date Performed: 04/14/2017 Time Performed: 18:56:03 PTAGE: 56 years EKG: Sinus rhythm MODERATE T-WAVE ABNORMALITY, CONSIDER LATERAL ISCHEMIA ABNORMAL ECG INTERPRETATION BASED ON A DEFAUL T AGE OF 40 YEARS NO SIG CHANGE NO PREVIOUS TRACING DOCTOR: Matthew Walsh Interpretating Date/Time 04/15/2017 15:48:44
--- NOTE | 2017-04-15 15:51 | EKG ---
Date Performed: 04/14/2017 Time Performed: 12:24:40 PTAGE: 56 years EKG: Sinus rhythm VOLTAGE CRITERIA FOR LVH MODERATE T-WAVE ABNORMALITY, CONSIDER LATERAL ISCHEMIA ABNORMAL ECG T WAVE CHANGES ARE MORE PROMINANT CLINICAL CORRELATION NEEDED PREVIOUS TRACING : 08/09/2016 16.43 DOCTOR: Matthew Walsh Interpretating Date/Time 04/15/2017 15:50:20
--- NOTE | 2017-04-17 16:10 | TR ---
Date Performed: 04/15/2017 Time Performed: 10:48:00 DOCTOR: Mary Ramon DRUG LIST: CLINICAL HISTORY: REASON FOR TEST: REASON FOR ENDING: OBSERVATION: CONCLUSION: Lexiscan stress test was performed under standard four minute protocol. Radionuclid e was injected one minute prior to ending the test. No electrocardiographic abormalities were present to suggest ischemia. Nuclear imaging and interpretation are pending. COMMENTS:
== END 2017-04-15 13:59 | disposition home or self-care (01) ==
LOC: NEPD 11:59 → NEDA 13:57 → NEPGCP 15:48
PROVIDERS: ADMIT Internal Medicine Interventional Cardiology; ATTEND Internal Medicine Interventional Cardiology
DX: R07.89 Other chest pain (principal); D69.6 Thrombocytopenia, unspecified; E87.6 Hypokalemia; R10.13 Epigastric pain; R06.02 Shortness of breath; R61 Generalized hyperhidrosis; R11.2 Nausea with vomiting, unspecified; R05 Cough; R00.1 Bradycardia, unspecified; R94.31 Abnormal electrocardiogram [ECG] [EKG]; R06.6 Hiccough; R51 Headache; I10 Essential (primary) hypertension; I20.9 Angina pectoris, unspecified; F10.129 Alcohol abuse with intoxication, unspecified; F32.9 Major depressive disorder, single episode, unspecified; F41.9 Anxiety disorder, unspecified; F14.10 Cocaine abuse, uncomplicated; F17.210 Nicotine dependence, cigarettes, uncomplicated; Y90.7 Blood alcohol level of 200-239 mg/100 ml; Z79.899 Other long term (current) drug therapy
CPT/HCPCS: 71045; 78452; 80048; 80307; 82550; 82552; 83690; 83735; 84484; 85025; 85610; 85730; 93005; 93017; 99285; A9502; G0378; J2785

== ENCOUNTER 2017-04-24 11:05 | Emergency (ER) | payer OTHER ==
[~2017-04-24] VITALS: Ht 172.7 cm; Wt 80.0 kg
[~2017-04-24 11:05] MED LIST changes: -CITA20TA4 PO; +CLON0.1T PO; +ESCI10TA PO; +LOSA100T PO; -LOSA50TA PO; +MIRTA15 PO; +PROT40TA PO; +QUET1TAB9 PO
[2017-04-24 11:40] VITALS: BP 163/93; PULSE 82; RESP 18; TEMP 97.8; O2SAT 97
[2017-04-24 12:10] VITALS: O2SAT 99
--- NOTE | 2017-04-24 13:46 | RADRPT ---
EXAM DATE/TIME: 04/24/2017 13:31 [facility] COMPARISON: CHEST SINGLE AP, April 14, 2017, 12:25. INDICATIONS : Shortness of breath, chest pain, and chest tightness. MEDICAL HISTORY : Hypertension. Smoker. ETOH abuse. Polysubstance abuse. SURGICAL HISTORY : Umbilical hernia repair. ENCOUNTER: Initial ACUITY: 2 days PAIN SCORE: 3/10 LOCATION: Bilateral upper chest FINDINGS: PA and lateral views of the chest demonstrate the lungs to be symmetrically aerated without evidence of mass, infiltrate or effusion. The cardiomediastinal contours are unremarkable. Osseous structure s are intact. CONCLUSION: Normal examination. Frank Sanchez MD on April 24, 2017 at 13:42 Board Certified Radiologist. This report was verified electronically.
[2017-04-24 14:11] LABS: AUTOMATED NEUTROPHIL # 2.2 TH/MM3 (1.8-7.7); BASOPHIL # 0.1 TH/MM3 (0-0.2); BASOPHIL % 1.3 % (0.0-2.0); EOSINOPHIL % 0.9 % (0.0-4.0); HEMATOCRIT 43.2 % (39.0-51.0); HEMOGLOBIN 15.7 GM/DL (13.0-17.0); LYMPHOCYTE # 2.2 TH/MM3 (1.0-4.8); MEAN CELL VOLUME 97.8 FL (80.0-100.0); MEAN CORPUSCULAR HEMOGLOBIN 35.4 PG (27.0-34.0); MEAN PLATELET VOLUME 7.7 FL (7.0-11.0); MONO % 11.5 % (0.0-8.0); MONOCYTE # 0.6 TH/MM3 (0-0.9); NEUT % 43.3 % (16.0-70.0); PLATELET COUNT 305 TH/MM3 (150-450); RED BLOOD COUNT 4.42 MIL/MM3 (4.50-5.90); RED CELL DISTRIBUTION WIDTH 13.6 % (11.6-17.2); WHITE BLOOD COUNT 5.2 TH/MM3 (4.0-11.0)
[2017-04-24 14:12] LABS: MEAN CORPUSCULAR HGB CONC 36.2 % (32.0-36.0)
--- NOTE | 2017-04-24 15:16 | PD ---
HPI Chief Complaint: Chest Pain Time Seen by Provider: 13:30 Travel History International Travel<30 days: No Contact w/Intl Traveler<30days: No Traveled to known affect area: No History of Present Illness HPI 56-year-old male presents to the ED for evaluation of "5 or 6 days" history of central chest pain. Waxing and waning. Rated 3/10 maximally. Patient endorses accompanying nausea, states "I throw up all the time." He denies shortness of breath, diaphoresis, palpitations. He denies abdominal pain, anorexia, changes in bowel habits. He is a daily drinker. He denies drinking today. He was seen in the ED with similar symptoms for 5 days ago and had a stress test and was released. [facility] Past Medical History Anxiety: Yes Depression: Yes Cardiovascular Problems: Yes Diabetes: No Diminished Hearing: No Hypertension: Yes Musculoskeletal: Yes Psychiatric: Yes Respiratory: Yes Immunizations Current: No ?: Not Past Surgical History Abdominal Surgery: Yes (hernia) Oral Surgery: Yes Other Surgery: Yes (hernia repair ; jaw surgery) Family History Family Myocardial Infarction: Yes (mother) Social History Alcohol Use: Yes ((3) 16 oz beers per day) Tobacco Use: Yes (1/2 ppd) Substance Use: Yes (marijuana, crack 2 DAYS AGO) Allergies-Medications (Allergen,Severity, Reaction): Coded Allergies: atorvastatin (Verified Allergy, Unknown, Swelling, 04/24/17) Reported Meds & Prescriptions Reported Meds & Active Scripts Active Protonix (Pantoprazole Sodium) 40 Mg Tab 40 Mg PO DAILY Reported Mirtazapine 15 Mg Tab 15 Mg PO HS Escitalopram (Escitalopram Oxalate) 10 Mg Tab 10 Mg PO DAILY Clonidine (Clonidine HCl) 0.1 Mg Tab 0.1 Mg PO BID Quetiapine (Quetiapine Fumarate) 200 Mg Tab 200 Mg PO HS Amlodipine (Amlodipine Besylate) 5 Mg Tab 5 Mg PO DAILY Losartan (Losartan Potassium) 100 Mg Tab 100 Mg PO DAILY Review of Systems Except as stated in HPI: all other systems reviewed are Neg Physical Exam Exam Limitations: Intoxication Narrative GENERAL: Well-nourished, well-developed black male in no acute distress. Smell of alcohol. SKIN: Focused skin assessment warm/dry. HEAD: Normocephalic. EYES: No scleral icterus. No injection or drainage. NECK: Supple, trachea midline. No JVD or lymphadenopathy. CARDIOVASCULAR: Regular rate and rhythm without murmurs, gallops, or rubs. RESPIRATORY: Breath sounds clear and equal bilaterally. No accessory muscle use. GASTROINTESTINAL: Abdomen soft, tender to palpation in the epigastric and left upper quadrant regions, nondistended. Active bowel sounds. MUSCULOSKELETAL: No cyanosis, or edema. BACK: Nontender without obvious deformity. No CVA tenderness. Data Data Last Documented VS Vital Signs Date Time Temp Pulse Resp B/P (MAP) Pulse Ox O2 Delivery O2 Flow Rate FiO2 04/24/17 23:36 04/24/17 18:34 84 18 98 Room Air 04/24/17 11:40 97.8 Orders Orders Electrocardiogram (04/24/17 12:59) Basic Metabolic Panel (Bmp) (04/24/17 12:59) Ckmb (Isoenzyme) Profile (04/24/17 12:59) Complete Blood Count With Diff (04/24/17 12:59) Magnesium (Mg) (04/24/17 12:59) Prothrombin Time / Inr (Pt) (04/24/17 12:59) Act Partial Throm Time (Ptt) (04/24/17 12:59) Troponin I (04/24/17 12:59) Ecg Monitoring (04/24/17 12:59) Bilateral Bp Monitoring (04/24/17 12:59) Iv Access Insert/Monitor (04/24/17 12:59) Oximetry (04/24/17 12:59) Oxygen Administration (04/24/17 12:59) Chest, Pa & Lat (04/24/17 12:59) Lipase (04/24/17 15:13) CKMB (04/24/17 14:55) CKMB% (04/24/17 14:55) Ed Discharge Order (04/24/17 19:37) Labs Laboratory Tests Test 04/24/17 13:40 04/24/17 14:55 White Blood Count 5.2 TH/MM3 Red Blood Count 4.42 MIL/MM3 Hemoglobin 15.7 GM/DL Hematocrit 43.2 % Mean Corpuscular Volume 97.8 FL Mean Corpuscular Hemoglobin 35.4 PG Mean Corpuscular Hemoglobin Concent 36.2 % Red Cell Distribution Width 13.6 % Platelet Count 305 TH/MM3 Mean Platelet Volume 7.7 FL Neutrophils (%) (Auto) 43.3 % Lymphocytes (%) (Auto) 43.0 % Monocytes (%) (Auto) 11.5 % Eosinophils (%) (Auto) 0.9 % Basophils (%) (Auto) 1.3 % Neutrophils # (Auto) 2.2 TH/MM3 Lymphocytes # (Auto) 2.2 TH/MM3 Monocytes # (Auto) 0.6 TH/MM3 Eosinophils # (Auto) 0.0 TH/MM3 Basophils # (Auto) 0.1 TH/MM3 CBC Comment AUTO DIFF Differential Comment AUTO DIFF CONFIRMED Platelet Estimate NORMAL Platelet Morphology Comment ENLARGED Prothrombin Time 10.2 SEC Prothromb Time International Ratio 1.0 RATIO Activated Partial Thromboplast Time 25.0 SEC Blood Urea Nitrogen 5 MG/DL Creatinine 0.81 MG/DL Random Glucose 99 MG/DL Calcium Level 8.7 MG/DL Magnesium Level 2.0 MG/DL Sodium Level 141 MEQ/L Potassium Level 4.0 MEQ/L Chloride Level 107 MEQ/L Carbon Dioxide Level 23.6 MEQ/L Anion Gap 10 MEQ/L Estimat Glomerular Filtration Rate 120 ML/MIN Total Creatine Kinase 380 U/L Creatine Kinase MB 6.7 NG/ML Creatine Kinase MB % 1.8 % Troponin I LESS THAN 0.02 NG/ML Lipase 154 U/L MDM Medical Decision Making Medical Screen Exam Complete: Yes Emergency Medical Condition: Yes Differential Diagnosis GERD versus pancreatitis versus less likely ACS versus chest pain versus alcohol intoxication versus malingering versus other Narrative Course 56-year-old male presents to the ED for evaluation of "5 or 6 days" history of central chest pain. Waxing and waning. Rated 3/10 maximally. Patient endorses accompanying nausea, states "I throw up all the time." He is a daily drinker. He denies drinking today. He was seen in the ED with similar symptoms for 5 days ago and had a stress test and was released. Vitals reviewed. On exam this is an intoxicated -[place] male in no acute distress. There is epigastric tenderness to palpation but the exams otherwise unremarkable. No concerning abnormalities of CBC, CMP or coags. Lipase 154. EKG without acute changes. Cardiac enzymes negative 1. Patient was monitored several hours in the ED, allowed to sleep off his intoxication. He was able to demonstrate a normal gait and clear speech. He is stable and discharged home. Diagnosis Primary Impression: Musculoskeletal chest pain Additional Impression: Chronic alcohol abuse Referrals: [facility] Additional Instructions: Get help to stop drinking at [facility]. Follow-up with the [facility]. Disposition: 01 DISCHARGE HOME Condition: Michell Tinsley Apr 24, 2017 15:16
[2017-04-24 15:24] LABS: PROTHROMBIN TIME - PATIENT 10.2 SEC (9.8-11.6)
[2017-04-24 15:47] LABS: BICARBONATE 23.6 MEQ/L (21.0-32.0); BLOOD UREA NITROGEN 5 MG/DL (7-18); CALCIUM 8.7 MG/DL (8.5-10.1); CHLORIDE 107 MEQ/L (98-107); CREATININE 0.81 MG/DL (0.60-1.30); GLOMERULAR FILTRATION RATE 120 ML/MIN (>89); GLUCOSE,RANDOM 99 MG/DL (74-106); SODIUM (NA) 141 MEQ/L (136-145); TROPONIN I LESS THAN 0.02 NG/ML (0.02-0.05)
[2017-04-24 18:33] VITALS: BP_SYST 167; BP_SYST 168; BP_DIAS 108; BP_DIAS 98; PULSE 84; RESP 18; O2SAT 98
[2017-04-24 18:34] VITALS: BP 167/98; PULSE 84; RESP 18; O2SAT 98
--- NOTE | 2017-04-25 23:49 | EKG ---
Date Performed: 04/24/2017 Time Performed: 12:50:44 PTAGE: 56 years EKG: Sinus rhythm WITH SINUS ARRHYTHMIA VOLTAGE CRITERIA FOR LVH MODERATE T-WAVE ABNORMALITY, CONSIDER LATERAL ISCHEMI A ABNORMAL ECG INTERPRETATION BASED ON A DEFAULT AGE OF 41 YEARS NO PREVIOUS TRACING DOCTOR: Ollie Ayala Interpretating Date/Time 04/25/2017 23:46:08
== END 2017-04-24 23:37 | disposition home or self-care (01) ==
LOC: NEDAMB 11:05
DX: R07.89 Other chest pain (principal); F10.129 Alcohol abuse with intoxication, unspecified; F17.200 Nicotine dependence, unspecified, uncomplicated; F12.90 Cannabis use, unspecified, uncomplicated; I10 Essential (primary) hypertension
CPT/HCPCS: 71046; 80048; 82550; 82552; 83690; 83735; 84484; 85025; 85610; 85730; 93005; 99285

== ENCOUNTER 2017-06-03 09:07 | Emergency (ER) | payer OTHER ==
[~2017-06-03] VITALS: Ht 175.3 cm; Wt 75.0 kg
[2017-06-03 09:13] VITALS: BP 177/117; PULSE 75; RESP 16; TEMP 97.8; O2SAT 99
[2017-06-03] MEDS ORDERED: LOSARTAN 25 MG TAB PO ONE (09:30)
[2017-06-03] MEDS ORDERED: cloNIDine HCL 0.1 MG TAB PO ONE (09:30)
[2017-06-03] MEDS ORDERED: amLODIPine BESYLATE 5 MG TAB PO ONE (09:30)
--- NOTE | 2017-06-03 09:33 | PD ---
HPI Chief Complaint: Hypertension Time Seen by Provider: 09:18 Travel History International Travel<30 days: No Contact w/Intl Traveler<30days: No Traveled to known affect area: No History of Present Illness HPI 56yo M with PMH of alcohol abuse, HTN presents to the ED with c/o elevated blood pressure today. Pt said he ran out of his blood pressure medication for 3 days and has not taken them. Pt was in [place] today and started feeling lightheaded, diaphoretic and sob. Denies any chest pain, fever, cough, n/v, headache, visual changes, focal weakness or numbness, abdominal pain. Pt takes clonidine, amlodipine and losartan for HTN. Pt last drank alcohol last night but still have alcohol on breath. PFSH Past Medical History Anxiety: Yes Depression: Yes Cardiovascular Problems: Yes Diabetes: No Diminished Hearing: No Hypertension: Yes Musculoskeletal: Yes Psychiatric: Yes Respiratory: Yes Immunizations Current: No Past Surgical History Abdominal Surgery: Yes (hernia) Oral Surgery: Yes Other Surgery: Yes (hernia repair ; jaw surgery) Family History Family Myocardial Infarction: Yes Social History Alcohol Use: Yes ((3) 16 oz beers per day) Tobacco Use: Yes (1/2 ppd) Substance Use: Yes (history of crack and marijuana, none recently) Allergies-Medications (Allergen,Severity, Reaction): Coded Allergies: atorvastatin (Verified Allergy, Unknown, Swelling, 04/24/17) Reported Meds & Prescriptions Reported Meds & Active Scripts Active Protonix (Pantoprazole Sodium) 40 Mg Tab 40 Mg PO DAILY Reported Mirtazapine 15 Mg Tab 15 Mg PO HS Escitalopram (Escitalopram Oxalate) 10 Mg Tab 10 Mg PO DAILY Clonidine (Clonidine HCl) 0.1 Mg Tab 0.1 Mg PO BID Quetiapine (Quetiapine Fumarate) 200 Mg Tab 200 Mg PO HS Amlodipine (Amlodipine Besylate) 5 Mg Tab 5 Mg PO DAILY Losartan (Losartan Potassium) 100 Mg Tab 100 Mg PO DAILY Review of Systems Except as stated in HPI: all other systems reviewed are Neg Physical Exam Narrative GENERAL: 56yo M in mild distress. SKIN: Focused skin assessment warm/dry. HEAD: Atraumatic. Normocephalic. EYES: Pupils equal and round at 3mm bilaterally. EOMI. ENT: No nasal bleeding or discharge. Mucous membranes pink and moist. NECK: Trachea midline. No JVD. CARDIOVASCULAR: Regular rate and rhythm. No murmur appreciated. RESPIRATORY: No accessory muscle use. Clear to auscultation. Breath sounds equal bilaterally. GASTROINTESTINAL: Abdomen soft, non-tender, nondistended. No rebound tenderness or guarding. MUSCULOSKELETAL: No obvious deformities. No clubbing. No cyanosis. No edema. NEUROLOGICAL: Awake and alert. No obvious cranial nerve deficits. Motor grossly within normal limits in all extremities. Sensation intact. Normal speech. PSYCHIATRIC: Appropriate mood and affect; insight and judgment normal. Data Data Last Documented VS Vital Signs Date Time Temp Pulse Resp B/P (MAP) Pulse Ox O2 Delivery O2 Flow Rate FiO2 06/03/17 12:11 114 20 188/92 (124) 98 Room Air 06/03/17 09:13 97.8 Orders Orders Basic Metabolic Panel (Bmp) (06/03/17 09:27) Complete Blood Count With Diff (06/03/17 09:27) Magnesium (Mg) (06/03/17 09:27) Troponin I (06/03/17 09:27) Chest, Single Ap (06/03/17 09:27) Blood Glucose (06/03/17 09:27) Orthostatic Vital Signs (06/03/17 09:27) Clonidine (Catapres) (06/03/17 09:30) Amlodipine (Norvasc) (06/03/17 09:30) Losartan (Cozaar) (06/03/17 09:30) Acetaminophen (Tylenol) (06/03/17 11:15) Hydralazine Inj (Apresoline Inj) (06/03/17 11:15) Ct Brain W/O Iv Contrast(Rout) (06/03/17 ) Lorazepam Inj (Ativan Inj) (06/03/17 12:15) Labs Laboratory Tests Test 06/03/17 09:30 White Blood Count 3.1 TH/MM3 Red Blood Count 4.22 MIL/MM3 Hemoglobin 14.0 GM/DL Hematocrit 40.8 % Mean Corpuscular Volume 96.7 FL Mean Corpuscular Hemoglobin 33.2 PG Mean Corpuscular Hemoglobin Concent 34.3 % Red Cell Distribution Width 14.4 % Platelet Count 146 TH/MM3 Mean Platelet Volume 7.6 FL Neutrophils (%) (Auto) 42.6 % Lymphocytes (%) (Auto) 44.9 % Monocytes (%) (Auto) 9.7 % Eosinophils (%) (Auto) 0.7 % Basophils (%) (Auto) 2.1 % Neutrophils # (Auto) 1.3 TH/MM3 Lymphocytes # (Auto) 1.4 TH/MM3 Monocytes # (Auto) 0.3 TH/MM3 Eosinophils # (Auto) 0.0 TH/MM3 Basophils # (Auto) 0.1 TH/MM3 CBC Comment DIFF FINAL Differential Comment Blood Urea Nitrogen 7 MG/DL Creatinine 0.98 MG/DL Random Glucose 132 MG/DL Calcium Level 8.6 MG/DL Magnesium Level 1.8 MG/DL Sodium Level 137 MEQ/L Potassium Level 3.9 MEQ/L Chloride Level 107 MEQ/L Carbon Dioxide Level 19.7 MEQ/L Anion Gap 10 MEQ/L Estimat Glomerular Filtration Rate 96 ML/MIN Troponin I 0.02 NG/ML MDM Medical Decision Making Medical Screen Exam Complete: Yes Emergency Medical Condition: Yes Interpretation(s) EKG: NSR 80bpm. Normal axis. LVH. TWI V4, V5, may be secondary to LVH strain. This is unchanged from EKG on 04/24/17. Differential Diagnosis Hypertensive emergency vs. dehydration vs. electrolyte abnormality vs. ACS vs. arrhythmia Narrative Course 56yo M with HTN here with elevated blood pressure secondary to noncompliance with medications. Pt feels lightheaded and sob. EKG showed LVH and unchanged from prior. Pt just had stress test on 04/15/17 that was negative. Labs reviewed , WBC low at . H/H normal. Mild thrombocytopenia which he has had before. Troponin negative. Creatinine normal at 0.98. CXR negative. Pt has not taken his HTN for 3 days. Pt given his usual blood pressure medication. Pt also started having shakes so given ativan for alcohol withdrawal. Pt complained of headache so CT brain completed. CT brain negative. Pt given acetaminophen and pain has improved. BP improved. Return precautions given. Diagnosis Primary Impression: Elevated blood pressure reading Patient Instructions: General Instructions Departure Forms: Tests/Procedures Additional Instructions: Please follow up with your primary care physician in 1-2 days. Return to the ED if symptoms worsen. Med/Other Pt SpecificInfo: Prescription(s) given Scripts Clonidine (Clonidine) 0.1 Mg Tab 0.1 MG PO BID for Blood Pressure Management, #60 TAB 0 Refills Prov: FonsecaChristen DO 06/03/17 Losartan (Losartan) 100 Mg Tab 100 MG PO DAILY for Blood Pressure Management, #30 TAB 0 Refills Prov: Christen Fonseca DO 06/03/17 Amlodipine (Amlodipine) 5 Mg Tab 5 MG PO DAILY for Blood Pressure Management, #30 TAB 0 Refills Prov: Christen Fonseca DO 06/03/17 Disposition: 01 DISCHARGE HOME Condition: Stable Christen Fonseca DO Jun 03, 2017 09:33
[2017-06-03 09:43] LABS: AUTOMATED NEUTROPHIL # 1.3 TH/MM3 (1.8-7.7); BASOPHIL # 0.1 TH/MM3 (0-0.2); BASOPHIL % 2.1 % (0.0-2.0); EOSINOPHIL % 0.7 % (0.0-4.0); HEMATOCRIT 40.8 % (39.0-51.0); LYMPH % 44.9 % (9.0-44.0); LYMPHOCYTE # 1.4 TH/MM3 (1.0-4.8); MEAN CELL VOLUME 96.7 FL (80.0-100.0); MEAN CORPUSCULAR HEMOGLOBIN 33.2 PG (27.0-34.0); MEAN CORPUSCULAR HGB CONC 34.3 % (32.0-36.0); MEAN PLATELET VOLUME 7.6 FL (7.0-11.0); MONO % 9.7 % (0.0-8.0); MONOCYTE # 0.3 TH/MM3 (0-0.9); NEUT % 42.6 % (16.0-70.0); PLATELET COUNT 146 TH/MM3 (150-450); RED BLOOD COUNT 4.22 MIL/MM3 (4.50-5.90); RED CELL DISTRIBUTION WIDTH 14.4 % (11.6-17.2); WHITE BLOOD COUNT 3.1 TH/MM3 (4.0-11.0)
--- NOTE | 2017-06-03 09:52 | RADRPT ---
EXAM DATE/TIME: 06/03/2017 09:30 [facility] COMPARISON: CHEST SINGLE AP, April 14, 2017, 12:25. INDICATIONS : Short of breath MEDICAL HISTORY : Hypertension. SURGICAL HISTORY : None. ENCOUNTER: Initial ACUITY: 3 days PAIN SCORE: 0/10 LOCATION: chest FINDINGS: A single view of the chest demonstrates the lungs to be symmetrically aerated without evidence of mas s, infiltrate or effusion. The cardiomediastinal contours are unremarkable. Osseous structures are intact. CONCLUSION: No acute disease. Demetrius Mas MD on June 03, 2017 at 9:49 Board Certified Radiologist. This report was verified electronically.
[2017-06-03 10:02] LABS: TROPONIN I 0.02 NG/ML (0.02-0.05)
[2017-06-03 10:12] LABS: BICARBONATE 19.7 MEQ/L (21.0-32.0); CALCIUM 8.6 MG/DL (8.5-10.1); CREATININE 0.98 MG/DL (0.60-1.30); MAGNESIUM 1.8 MG/DL (1.5-2.5)
[2017-06-03 10:39] VITALS: BP 180/113; PULSE 86; RESP 16; O2SAT 99
[2017-06-03 10:40] VITALS: BP_SYST 180; BP_SYST 183; BP_SYST 188; BP_DIAS 102; BP_DIAS 106; BP_DIAS 113; RESP 16; RESP 18
[2017-06-03] MEDS ORDERED: ACETAMINOPHEN 325 MG TAB PO ONE (11:15)
[2017-06-03] MEDS ORDERED: hydrALAZINE HCL 20 MG/ML VIAL IV PUSH ONE (11:15)
[2017-06-03 12:11] VITALS: BP 188/92; PULSE 114; RESP 20; O2SAT 98
[2017-06-03] MEDS ORDERED: LORazepam 2 MG/ML VIAL IV PUSH ONE (12:15)
--- NOTE | 2017-06-03 12:40 | RADRPT ---
EXAM DATE/TIME: 06/03/2017 12:20 [facility] COMPARISON: CT BRAIN W/O CONTRAST, June 04, 2016, 12:18. INDICATIONS : Increased BP, non compliant with meds, dizziness.Headache. RADIATION DOSE: 37.41 CTDIvol (mGy) MEDICAL HISTORY : Cardiovascular disease. Hypertension. SURGICAL HISTORY : Hernia, fracture jaw ENCOUNTER: Initial ACUITY: 1 day PAIN SCALE: 4/10 LOCATION: cranial TECHNIQUE: Multiple contiguous axial images were obtained of the head. Using automated exposure control and adj ustment of the mA and/or kV according to patient size, radiation dose was kept as low as reasonably a chievable to obtain optimal diagnostic quality images. DICOM format image data is available electro nically for review and comparison. FINDINGS: CEREBRUM: The ventricles are normal for age. No evidence of midline shift, mass lesion, hemorrhage or acute in farction. No extra-axial fluid collections are seen. POSTERIOR FOSSA: The cerebellum and brainstem are intact. The 4th ventricle is midline. The cerebellopontine angle i s unremarkable. EXTRACRANIAL: The visualized portion of the orbits is intact. SKULL: The calvaria is intact. No evidence of skull fracture. CONCLUSION: Negative exam. No change from prior. Cameron Wick MD on June 03, 2017 at 12:36 Board Certified Radiologist. This report was verified electronically.
[2017-06-03] MEDS ORDERED: AMLO5TAB2 PO (13:16)
[2017-06-03] MEDS ORDERED: LOSA100T PO (13:16)
[2017-06-03] MEDS ORDERED: CLON0.1T PO (13:16)
[2017-06-03 13:22] VITALS: BP 169/89; PULSE 98; RESP 18; O2SAT 97
[2017-06-03 13:29] VITALS: RESP 16
--- NOTE | 2017-06-04 00:08 | EKG ---
Date Performed: 06/03/2017 Time Performed: 09:16:28 PTAGE: 56 years EKG: Sinus rhythm WITH SINUS ARRHYTHMIA VOLTAGE CRITERIA FOR LVH MODERATE T-WAVE ABNORMALITY, CONSIDER LATERAL ISCHEMI A ABNORMAL ECG PREVIOUS TRACING : 06/03/2017 09.15 Compared to previous tracing, unable to compare completely as previous had limb lead reversal, lateral ST/T wave changes are more prominent DOCTOR: Wade Coleman Interpretating Date/Time 06/04/2017 00:07:40
== END 2017-06-03 13:56 | disposition home or self-care (01) ==
LOC: NEPE 09:07
DX: I10 Essential (primary) hypertension (principal); R51 Headache; F10.239 Alcohol dependence with withdrawal, unspecified; R94.31 Abnormal electrocardiogram [ECG] [EKG]; F32.9 Major depressive disorder, single episode, unspecified; F41.9 Anxiety disorder, unspecified; F17.210 Nicotine dependence, cigarettes, uncomplicated
CPT/HCPCS: 70450; 71045; 80048; 83735; 84484; 85025; 93005; 96374; 96375; 99285; J0360; J2060

== ENCOUNTER 2017-10-26 09:28 | Observation (INO) ==
[2017-10-26] MEDS ORDERED: Aspirin 325 MG Tablet PO ONE (09:48)
[2017-10-26 09:50] VITALS: O2SAT 98
--- NOTE | 2017-10-26 09:54 | ED ---
HPI General Chief Complaint: Chest Pain Stated Complaint: respiratory Time Seen by Provider: 10/26/17 09:48 Source: patient Mode of arrival: ambulatory Limitations: no limitations History of Present Illness HPI narrative: 57-year-old male patient with history of hypertension, alcohol abuse, presents to the ER today because he is having right sided chest discomfort which he currently rates an 8 out of 10. He has been short of breath , having constant hiccups which he states has been going on over several weeks but he states it just was keeping him up last night. He denies any fevers, vomiting, diarrhea, or other symptoms. He has had similar symptoms in the past. Related Data Home Medications Medication Instructions Recorded Confirmed amlodipine 5 mg PO DAILY 10/26/17 10/26/17 clonidine HCl 0.1 mg PO BID 10/26/17 10/26/17 escitalopram oxalate [Lexapro] 20 mg PO DAILY 10/26/17 10/26/17 losartan 50 mg PO DAILY 10/26/17 10/26/17 quetiapine [Seroquel] 200 mg PO HS 10/26/17 10/26/17 trazodone 100 mg PO HS 10/26/17 10/26/17 Allergies Allergy/AdvReac Type Severity Reaction Status Date / Time atorvastatin Allergy Unknown Swelling Verified 04/24/17 14:35 lisinopril Allergy Edema, Verified 10/26/17 09:46 Localized Review of Systems ROS: all other systems reviewed are negative [facility] Medical History Medical History Hernia (Acute) Hypertension (Acute) Mandible fracture (Acute) Social History Social History Substance History: No History of Abuse Smoking Status: Current every day smoker Tobacco Type: Cigarettes How Often Do You Have a Drink Containing Alcohol: 4 or more times a week Recent Travel in [facility] within the Last 8 Weeks: No Recent Out of Country Travel within the Last 8 Weeks: No Immunization History Tetanus Immunization: <5 Years Hx Influenza Vaccine This Season: Yes Exam Narrative Exam Narrative: GENERAL: Well-developed middle-age -[place] male patient currently and moderate distress. Awake and oriented 3. SKIN: Focused skin assessment warm/mildly diaphoretic. HEAD: Atraumatic. Normocephalic. EYES: Pupils equal and round. No scleral icterus. No injection or drainage. ENT: No nasal bleeding or discharge. Mucous membranes pink and moist. NECK: Trachea midline. No JVD. CARDIOVASCULAR: Regular rate and rhythm. No murmur appreciated. RESPIRATORY: No accessory muscle use. Clear to auscultation. Breath sounds equal bilaterally. GASTROINTESTINAL: Abdomen soft, mild epigastric tenderness without guarding rebound, nondistended. Hepatic and splenic margins not palpable. MUSCULOSKELETAL: No obvious deformities. No clubbing. No cyanosis. No edema. NEUROLOGICAL: Awake and alert. No obvious cranial nerve deficits. Motor grossly within normal limits. Normal speech. PSYCHIATRIC: Appropriate mood and affect; insight and judgment normal. Course Initial Documented Vital Signs Temperature 97.5 F L 10/26/17 09:30 Pulse Rate 81 10/26/17 09:30 Respiratory Rate 24 10/26/17 09:30 Blood Pressure 189/110 H 10/26/17 09:30 Pulse Oximetry 99 10/26/17 09:30 Last Documented Vital Signs Temperature 97.5 F L 10/26/17 09:30 Pulse Rate 93 H 10/26/17 09:46 Respiratory Rate 20 10/26/17 09:46 Blood Pressure 179/96 H 10/26/17 09:46 Pulse Oximetry 98 10/26/17 09:54 Medical Decision Making MDM Narrative Medical decision making narrative: EKG did show some lateral T-wave changes. No significant dysrhythmias were identified. Abdomen is fairly benign and I am not suspecting acute intra-abdominal process. Lab work was fairly unremarkable. His potassium is slightly low and potassium was given in the ER. Chest x-ray was otherwise unremarkable. At this point, considering his history, high cholesterol, high blood pressure, my plan would be to admit him for further evaluation of his heart. His hiccups have subsided on reevaluation at 11 AM. Medical Screen Exam Complete: Yes Emergency Medical Condition: Yes Differential Diagnosis Differential Diagnosis: Gastroenteritis versus gastritis versus pancreatitis versus ACS versus electrolyte abnormalities versus dysrhythmias versus pneumonia Lab Data Lab results reviewed: Yes I reviewed the patient's lab results. Result diagrams: 10/26/17 09:53 10/26/17 09:53 Lab Results 10/26/17 10/26/17 10/26/17 Range/Units 09:53 09:53 09:53 WBC 4.6 (4.0-11.0) th/mm3 RBC 3.91 L (4.50-5.90) mil/mm3 Hgb 13.8 (13.0-17.0) gm/dL Hct 40.0 (39.0-51.0) % MCV 102.2 H (80.0-100.0) fL MCH 35.3 H (27.0-34.0) pg MCHC 34.5 (32.0-36.0) % RDW 12.6 (11.6-17.2) % Plt Count 298 (150-450) th/mm3 MPV 6.7 L (7.0-11.0) fL Neut % (Auto) 42.3 (16.0-70.0) % Lymph % (Auto) 44.5 H (9.0-44.0) % [place] % (Auto) 11.2 H (0.0-8.0) % Eos % (Auto) 0.7 (0.0-4.0) % Baso % (Auto) 1.3 (0.0-2.0) % Neut # (Auto) 1.9 (1.8-7.7) th/mm3 Lymph # (Auto) 2.0 (1.0-4.8) th/mm3 [place] # (Auto) 0.5 (0.0-0.9) th/mm3 Eos # (Auto) 0.0 (0.0-0.4) th/mm3 Baso # (Auto) 0.1 (0.0-0.2) th/mm3 WBC Differential . Differential Comment Auto diff final PT 10.4 (9.8-11.6) sec INR 1.0 Ratio APTT 27.4 (24.3-30.1) sec Sodium 138 (136-145) meq/L Potassium 3.3 L (3.5-5.1) meq/L Chloride 105 (98-107) meq/L Carbon Dioxide 21.7 (21.0-32.0) meq/L Anion Gap 11 (5-15) meq/L BUN 6 L (7-18) mg/dL Creatinine 0.79 (0.60-1.30) mg/dL Estimated GFR Greater than 89 (>89) mL/min Random Glucose 119 H (74-106) mg/dL Calcium 8.5 (8.5-10.1) mg/dL Total Bilirubin 0.2 (0.2-1.0) mg/dL AST 91 H (15-37) U/L ALT 54 (12-78) U/L Alkaline Phosphatase 103 (45-117) U/L Troponin I 0.02 (0.02-0.05) ng/mL B-Natriuretic Peptide (0-100) pg/mL Total Protein 8.2 (6.4-8.2) g/dL Albumin 3.0 L (3.4-5.0) g/dL Lipase 216 (73-393) U/L Serum Alcohol 243 H (0-5) mg/dL 10/26/17 Range/Units 09:53 WBC (4.0-11.0) th/mm3 RBC (4.50-5.90) mil/mm3 Hgb (13.0-17.0) gm/dL Hct (39.0-51.0) % MCV (80.0-100.0) fL MCH (27.0-34.0) pg MCHC (32.0-36.0) % RDW (11.6-17.2) % Plt Count (150-450) th/mm3 MPV (7.0-11.0) fL Neut % (Auto) (16.0-70.0) % Lymph % (Auto) (9.0-44.0) % [place] % (Auto) (0.0-8.0) % Eos % (Auto) (0.0-4.0) % Baso % (Auto) (0.0-2.0) % Neut # (Auto) (1.8-7.7) th/mm3 Lymph # (Auto) (1.0-4.8) th/mm3 [place] # (Auto) (0.0-0.9) th/mm3 Eos # (Auto) (0.0-0.4) th/mm3 Baso # (Auto) (0.0-0.2) th/mm3 WBC Differential Differential Comment PT (9.8-11.6) sec INR Ratio APTT (24.3-30.1) sec Sodium (136-145) meq/L Potassium (3.5-5.1) meq/L Chloride (98-107) meq/L Carbon Dioxide (21.0-32.0) meq/L Anion Gap (5-15) meq/L BUN (7-18) mg/dL Creatinine (0.60-1.30) mg/dL Estimated GFR (>89) mL/min Random Glucose (74-106) mg/dL Calcium (8.5-10.1) mg/dL Total Bilirubin (0.2-1.0) mg/dL AST (15-37) U/L ALT (12-78) U/L Alkaline Phosphatase (45-117) U/L Troponin I (0.02-0.05) ng/mL B-Natriuretic Peptide 26 (0-100) pg/mL Total Protein (6.4-8.2) g/dL Albumin (3.4-5.0) g/dL Lipase (73-393) U/L Serum Alcohol (0-5) mg/dL Imaging Data Attestation: I personally reviewed and interpreted this imaging study as follows : Radiologist's impression: Chest X-Ray 10/26/17 09:48 CONCLUSION: The lungs are clear. ECG Data Attestation: I personally reviewed and interpreted this ECG as follows: Interpretation: EKG shows normal sinus rhythm at a rate of 69 bpm. T-wave inversions notable and V4 V5. No acute ST elevations identified. Discharge Plan Discharge Disposition Patient Disposition: 30 Still Patient Discharge Condition Condition: Stable Discharge Details Anticipated Discharge Date: 10/26/17 Diagnosis: Atypical chest pain Physicians Team ED Provider: Eddie Owusu Primary Care Provider: Primary Care TabathaiMirian Rxs /Orders / Referrals /Forms Prescriptions: No Action losartan 50 mg Tablet 50 mg PO DAILY RF: 0 clonidine HCl 0.1 mg Tablet 0.1 mg PO BID RF: 0 quetiapine [Seroquel] 200 mg Tablet 200 mg PO HS RF: 0 amlodipine 5 mg Tablet 5 mg PO DAILY RF: 0 trazodone 100 mg Tablet 100 mg PO HS RF: 0 escitalopram oxalate [Lexapro] 20 mg Tablet 20 mg PO DAILY RF: 0 Discharge Instructions Patient Printed Instructions: Chest Pain (ED) Discharge Interventions Interventions: Vital Signs Last Done: 10/26/17 09:46 Status ED Status: With Doctor
[2017-10-26 10:09] LABS: Baso # (Auto) 0.1 th/mm3 (0.0-0.2); Baso % (Auto) 1.3 % (0.0-2.0); Eos % (Auto) 0.7 % (0.0-4.0); Hemoglobin 13.8 gm/dL (13.0-17.0); Lymph % (Auto) 44.5 % (9.0-44.0); Mean Corpuscular HGB Conc 34.5 % (32.0-36.0); Mean Corpuscular Hemoglobin 35.3 pg (27.0-34.0); Mean Corpuscular Volume 102.2 fL (80.0-100.0); Mean Platelet Volume 6.7 fL (7.0-11.0); Mono # (Auto) 0.5 th/mm3 (0.0-0.9); Mono % (Auto) 11.2 % (0.0-8.0); Neut # (Auto) 1.9 th/mm3 (1.8-7.7); Neut % (Auto) 42.3 % (16.0-70.0); Platelet Count 298 th/mm3 (150-450); Red Blood Count 3.91 mil/mm3 (4.50-5.90); Red Cell Distribution Width 12.6 % (11.6-17.2); White Blood Count 4.6 th/mm3 (4.0-11.0)
--- NOTE | 2017-10-26 10:11 | XR ---
EXAM DATE: 10/26/2017 10:06 AM EDT AGE/SEX: 57 years / Male INDICATIONS: Chest pain and hiccups. CLINICAL DATA: This is the patient's initial encounter. Patient reports that signs and symptoms have been present for 1 week and indicates a pain score of 3/10. MEDICAL/SURGICAL HISTORY: Hypertension. None. COMPARISON: [facility] [place], CHEST SINGLE AP, 06/03/2017. . FINDINGS: A single AP view of the chest demonstrates the lungs to be symmetrically aerated without evidence of mass, infiltrate or effusion. The cardiomediastinal contours are unremarkable. Osseous structures a re intact. CONCLUSION: The lungs are clear. Electronically signed by: Jamin Abraham MD 10/26/2017 10:10 AM EDT
[2017-10-26 10:17] LABS: Activated Partial Thrombo Time 27.4 sec (24.3-30.1); Prothrombin Time 10.4 sec (9.8-11.6)
[2017-10-26 10:32] LABS: Anion Gap 11 meq/L (5-15); Blood Urea Nitrogen 6 mg/dL (7-18); Calcium 8.5 mg/dL (8.5-10.1); Carbon Dioxide 21.7 meq/L (21.0-32.0); Chloride 105 meq/L (98-107); Glomerular Filtration Rate Greater Than 89 mL/min (>89); Lipase 216 U/L (73-393); Potassium 3.3 meq/L (3.5-5.1); Sodium 138 meq/L (136-145)
[2017-10-26 10:36] LABS: Alanine Aminotransferase 54 U/L (12-78); Alkaline Phosphatase 103 U/L (45-117); Glucose,Random 119 mg/dL (74-106); Total Protein 8.2 g/dL (6.4-8.2)
[2017-10-26 10:39] LABS: Alcohol 243 mg/dL (0-5)
[2017-10-26 10:41] LABS: Aspartate Aminotransferase 91 U/L (15-37); Troponin I 0.02 ng/mL (0.02-0.05)
[2017-10-26] MEDS ORDERED: Potassium Chloride 25 MEQ Effervescent Tablet PO ONE (11:02)
--- NOTE | 2017-10-26 12:10 | P.HPCA ---
History of Present Illness Primary Care Physician: No Primary Care Physician Chief Complaint: Hiccups and right sided chest pain History of Present Illness: 57-year-old male with history of hypertension, alcohol abuse, and current smoker presents emergency room for further evaluation of hiccups and right- sided chest pain. Reports having hiccups continuously 2 weeks, reporting unable to eat or sleep due to hiccups. Hiccups resolved after receiving aspirin. Right sided chest pain onset one week. Location right anterior chest. Characterized as throbbing and soreness. No radiation. No associated symptoms. No precipitating or relieving factors. Denies similar pain in the past. Reports recent discharge from a [facility] inpatient [facility] treatment center 2 weeks ago. States he was found walking on [facility] "hallucinating." Reports discharged from [facility] and required to walk from [facility] to [place]. No known CAD, diabetes, or hyperlipidemia. Known hypertension. Ran out of "all medications" over one week ago. No recent fever or known injury. Reports falling a lot "and I am not sure why I fall so much." Past cardiac testing 04/15/17 Lexiscan-no definite signs of ischemia. EF 40%. Social history Known hypertension, out of medications currently. No known CAD, hyperlipidemia, or diabetes. Current half pack a day smoker. 4-5 beers daily. Denies any drug use. - Diagnosis (1) Atypical chest pain (2) Hiccups (3) Tobacco use (4) Alcohol abuse Review of Systems All other systems reviewed negative except as stated in HPI Psychiatric: Denies abnormal sleep pattern, Denies anxiety, Denies behavioral changes, Denies change in appetite, Denies tactile hallucinations, Denies thoughts of hurting/killing others, Denies thoughts of hurting/killing yourself [facility] - History History Provided By: Patient - Medical History Medical History: Medical History (Last Updated 10/26/17 @ 14:19 by WENDY Jones) Hernia Hypertension Mandible fracture PTSD (post-traumatic stress disorder) Suicidal ideations - Social History I have reviewed the patient's Social History: Yes - Tobacco History Tobacco Use In Past 30 Days: Yes Smoking Status: Current every day smoker Tobacco Type: Cigarettes Packs Per Day: 0.5 - Alcohol History How Often Do You Have a Drink Containing Alcohol: 4 or more times a week (4-5 beers daily, last drink this a.m.) - Substance Use History Substance History: No History of Abuse - Travel History Recent Travel in the [place] Within the Last 8 Weeks: No Recent Travel Out of the Country Within the Last 8 Weeks: No - Immunization History Tetanus Immunization: <5 Years Hx Influenza Vaccine This Season: Yes Medications and Allergies Active Medications: Active Medications Sodium Chloride (Ns Flush) 2 ml IV.FLUSH UNSCH PRN PRN Reason: FLUSH AFTER USING IV ACCESS Sodium Chloride (Ns Flush) 2 ml IV.FLUSH BID BILL Allergies Allergy/AdvReac Type Severity Reaction Status Date / Time atorvastatin Allergy Unknown Swelling Verified 04/24/17 14:35 lisinopril Allergy Edema, Verified 10/26/17 09:46 Localized Home Medications Medication Instructions Recorded Confirmed Type amlodipine 5 mg PO DAILY 10/26/17 10/26/17 History clonidine HCl 0.1 mg PO BID 10/26/17 10/26/17 History escitalopram oxalate [Lexapro] 20 mg PO DAILY 10/26/17 10/26/17 History losartan 50 mg PO DAILY 10/26/17 10/26/17 History quetiapine [Seroquel] 200 mg PO HS 10/26/17 10/26/17 History trazodone 100 mg PO HS 10/26/17 10/26/17 History Exam Vital signs: Vital Signs 10/26/17 09:30 10/26/17 09:46 10/26/17 09:54 Temperature 97.5 F L Pulse Rate 81 93 H Respiratory Rate 24 20 Blood Pressure 189/110 H 179/96 H Pulse Oximetry 99 98 98 Intake & Output 10/25/17 10/26/17 10/26/17 18:59 06:59 18:59 Weight 68.039 kg Narrative: GENERAL: Alert WN, WD, NAD, pleasant, thin, -Lebanese male HEAD: NC, AT EYES: Sclera clear, conjunctiva without injection, pupils equal and round ENT: Mucous membranes pink and moist, poor dentition CV: RRR, without murmur, rub, gallop, no JVD, S1-S2 no S3-S4. Right anterior chest tender with palpation. RESP: Clear lungs throughout bilateral, no crackles, wheeze, rhonchi, symmetrical chest rise, nonlabored, able to speak in full sentences ABD: Soft, NT, ND, no masses, positive bowel tones EXT: Pulses +1 R DP +2 DP, no dependent edema MS: Normal tone x4 extremities, no obvious deformities, full range of motion NEURO: CN II through CN XII grossly intact, motor strength 5/5 PSYCH: A+O x3, pleasant affect, appropriate speech, mood, insight and judgment SKIN: Normal turgor, normal texture, no lesions, no rashes, decreased hair distribution, thick discolored toenails Results 10/26/17 09:53 10/26/17 09:53 Cardiac Enzymes 10/26/17 10/26/17 Range/Units 09:53 09:53 AST 91 H (15-37) U/L Troponin I 0.02 (0.02-0.05) ng/mL B-Natriuretic Peptide 26 (0-100) pg/mL Coagulation 10/26/17 10/26/17 Range/Units 09:53 09:53 PT 10.4 (9.8-11.6) sec APTT 27.4 (24.3-30.1) sec B-Natriuretic Peptide 26 (0-100) pg/mL CBC 10/26/17 Range/Units 09:53 WBC 4.6 (4.0-11.0) th/mm3 RBC 3.91 L (4.50-5.90) mil/mm3 Hgb 13.8 (13.0-17.0) gm/dL Hct 40.0 (39.0-51.0) % Plt Count 298 (150-450) th/mm3 Neut # (Auto) 1.9 (1.8-7.7) th/mm3 Lymph # (Auto) 2.0 (1.0-4.8) th/mm3 [place] # (Auto) 0.5 (0.0-0.9) th/mm3 Eos # (Auto) 0.0 (0.0-0.4) th/mm3 Baso # (Auto) 0.1 (0.0-0.2) th/mm3 Comprehensive Metabolic Panel 10/26/17 Range/Units 09:53 Sodium 138 (136-145) meq/L Potassium 3.3 L (3.5-5.1) meq/L Chloride 105 (98-107) meq/L Carbon Dioxide 21.7 (21.0-32.0) meq/L BUN 6 L (7-18) mg/dL Creatinine 0.79 (0.60-1.30) mg/dL Calcium 8.5 (8.5-10.1) mg/dL AST 91 H (15-37) U/L ALT 54 (12-78) U/L Alkaline Phosphatase 103 (45-117) U/L Total Protein 8.2 (6.4-8.2) g/dL Albumin 3.0 L (3.4-5.0) g/dL Intake and Output 10/25/17 10/26/17 10/26/17 22:59 06:59 14:59 Other: Weight 68.039 kg Patient Weight 10/27/17 06:59 Weight 68.039 kg EKG interpretations - EKG EKG results cardiology: WNL, sinus rhythm, normal axis (NSR, t wave inversion laterally (compared to previous EKGs with t wave changes laterally)) Caprini VTE Risk Assessment Caprini VTE Risk Assessment: No/Low Risk (score <= 1) Caprini Risk Assessment Model: Point Value = 1 Point Value = 2 Point Value = 3 Point Value = 5 Age 41-60 Minor surgery BMI > 25 kg/m2 Swollen legs Varicose veins or History of unexplained or recurrent spontaneous Oral contraceptives or hormone replacement Sepsis (< 1 month) Serious lung disease, including pneumonia (< 1 month) Abnormal pulmonary function Acute myocardial infarction Congestive heart failure (< 1 month) History of inflammatory bowel disease Medical patient at bed rest Age 61-74 Arthroscopic surgery Major open surgery (> 45 min) Laparoscopic surgery (> 45 min) Malignancy Confined to bed (> 72 hours) Immobilizing plaster cast Central venous access Age >= 75 History of VTE Family history of VTE Factor V Leiden Prothrombin [id number] Lupus anticoagulant Anticardiolipin antibodies Elevated serum homocysteine Heparin-induced thrombocytopenia Other congenital or acquired thrombophilia Stroke (< 1 month) Elective arthroplasty Hip, pelvis, or leg fracture Acute spinal cord injury (< 1 month) Prophylaxis Regimen: Total Risk Factor Score Risk Level Prophylaxis Regimen 0-1 Low Early ambulation 2 Moderate Order ONE of the following: *Sequential Compression Device (SCD) *Heparin 5000 units SQ BID 3-4 Higher Order ONE of the following medications: *Heparin 5000 units SQ TID *Enoxaparin/Lovenox 40 mg SQ daily (WT < 150 kg, CrCl > 30 mL/min) *Enoxaparin/Lovenox 30 mg SQ daily (WT < 150 kg, CrCl > 10-29 mL/min) *Enoxaparin/Lovenox 30 mg SQ BID (WT < 150 kg, CrCl > 30 mL/min) AND/OR *Sequential Compression Device (SCD) 5 or more Highest Order ONE of the following medications: *Heparin 5000 units SQ TID (Preferred with Epidurals) *Enoxaparin/Lovenox 40 mg SQ daily (WT < 150 kg, CrCl > 30 mL/min) *Enoxaparin/Lovenox 30 mg SQ daily (WT < 150 kg, CrCl > 10-29 mL/min) *Enoxaparin/Lovenox 30 mg SQ BID (WT < 150 kg, CrCl > 30 mL/min) AND *Sequential Compression Device (SCD) Assessment and Plan - Assessment (1) Atypical chest pain Code(s): R07.89 - Other chest pain Status: Acute Plan: Admitted to chest pain center. Rule out ACS with 2 sets of EKGs and cardiac enzymes. Will be seen and evaluated by Dr. Matthew Walsh. Recent unremarkable Lexiscan April 2017. Likely will discharge later this afternoon. This will be determined after evaluation by juice packaging machines setter. Discussed this with patient who is agreeable to plan of care. T wave changes on EKG compared to past EKGs are similar. (2) Hiccups Code(s): R06.6 - Hiccough Status: Resolved Plan: Currently resolved. follow up with primary care provider. (3) Tobacco use Code(s): Z72.0 - Tobacco use Status: Chronic Plan: Strongly encouraged and stressed the importance of tobacco cessation. Instructed to quit smoking. (4) Alcohol abuse Code(s): F10.10 - Alcohol abuse, uncomplicated Status: Chronic Plan: Strongly encouraged to seek out support for alcohol cessation.
--- NOTE | 2017-10-26 13:37 | P.PNCA ---
Subjective Interval history: 57-year-old gentleman seen and evaluated by the nurse practitioner. He was subsequently seen and evaluated personally along with a review of his documentation and findings. In essence he is a long-standing alcoholic who has undergone treatment on at least 5 occasions and relapsed every time. He is also tried AA without results. He recognizes that he has an alcoholic but says he simply had not been able to stop. Is documented he was just recently discharged from [facility] after admission evaluation and treatment for mental health. His current chest pain is atypical for cardiac and in addition he had a negative nuclear stress test on the previous evaluation and this chest pain center this year. I am in agreement with the documentation on the chart In view of the known history patient will be evaluated and ruled out with 2 sets of enzymes and EKGs and at that point discharged to further follow-up evaluation on an outpatient basis. Physical Exam Vital signs: Vital Signs 10/26/17 09:30 10/26/17 09:46 10/26/17 09:54 Temperature 97.5 F L Pulse Rate 81 93 H Respiratory Rate 24 20 Blood Pressure 189/110 H 179/96 H Pulse Oximetry 99 98 98 Intake & Output 10/25/17 10/26/17 10/26/17 18:59 06:59 18:59 Weight 68.039 kg Assessment and Plan - Assessment (1) Atypical chest pain Code(s): R07.89 - Other chest pain Status: Acute (2) Hiccups Code(s): R06.6 - Hiccough Status: Acute (3) Tobacco use Code(s): Z72.0 - Tobacco use Status: Chronic (4) Alcohol abuse Code(s): F10.10 - Alcohol abuse, uncomplicated Status: Chronic
[2017-10-26 15:09] LABS: Troponin I 0.03 ng/mL (0.02-0.05)
[2017-10-26 15:21] LABS: CKMB Percent 0.8 % (0.0-4.0); Creatine Kinase MB 3.5 ng/mL (0.5-3.6)
[2017-10-26 15:40] VITALS: BP 161/89; PULSE 72; RESP 12; TEMP 97.9
[2017-10-26 16:36] LABS: Troponin I 0.03 ng/mL (0.02-0.05)
[2017-10-26 16:49] LABS: CKMB Percent 0.9 % (0.0-4.0); Creatine Kinase MB 3.4 ng/mL (0.5-3.6)
--- NOTE | 2017-10-27 10:35 | ECG ---
Date Performed: 10/26/2017 Time Performed: 13:35:44 PTAGE: 57 years EKG: Sinus rhythm VOLTAGE CRITERIA FOR LVH MODERATE T-WAVE ABNORMALITY ABNORMAL ECG PREVIOUS TRACING : 10/26/2017 13.28 Since previous tracing, no significant change noted DOCTOR: Bijan Oneal Interpretating Date/Time 10/27/2017 10:34:18
--- NOTE | 2017-10-27 22:27 | ECG ---
Date Performed: 10/26/2017 Time Performed: 09:43:40 PTAGE: 57 years EKG: Sinus rhythm VOLTAGE CRITERIA FOR LVH MODERATE T-WAVE ABNORMALITY, CONSIDER LATERAL ISCHEMIA ABNORMAL ECG PREVIOUS TRACING : 06/03/2017 09.16 DOCTOR: Mabel Garcia Interpretating Date/Time 10/27/2017 22:20:46
== END 2017-10-26 18:14 | disposition home or self-care (01) ==
LOC: NEPC 09:28 → NEDA 09:28 → NEPGCP 12:15
PROVIDERS: ADMIT Internal Medicine Interventional Cardiology; ATTEND Internal Medicine Interventional Cardiology

== ENCOUNTER 2017-10-31 06:54 | Inpatient (IN) ==
--- NOTE | 2017-10-31 07:29 | ED ---
HPI General Chief Complaint: Extremity Injury, Lower Stated Complaint: Knee injury Time Seen by Provider: 10/31/17 07:08 Source: patient Mode of arrival: EMS Limitations: no limitations History of Present Illness HPI Narrative: 57y male presents to the ED for evaluation of left knee pain that started this morning when he woke. He says he may have fallen on his knee last night but does not remember what happened. Says he might have 'blacked out' . He called [facility] as he had difficulty standing because of the pain in his knee. Denies numbness or tingling. Upon my evaluation, patient was watching television and in no acute distress. Seems to be disinterested in my evaluation. complaint: knee injury Onset (ago): hour(s) Injury: Left: knee Type of Injury: blunt Place: home Severity: mild Relieving factors: immobilization Exacerbating factors: weight bearing and movement Context: fall Associated symptoms: swelling and able to partially bear weight Other symptoms: none Treatments prior to arrival: cold therapy Related Data Home Medications Medication Instructions Recorded Confirmed trazodone 100 mg PO HS 10/26/17 10/31/17 Previous Rx's Medication Instructions Recorded amlodipine 5 mg PO DAILY #30 tab 10/26/17 clonidine HCl 0.1 mg PO BID #60 tab 10/26/17 escitalopram oxalate [Lexapro] 20 mg PO DAILY #30 tab 10/26/17 losartan 50 mg PO DAILY #30 tab 10/26/17 pantoprazole 40 mg PO DAILY #30 tab 10/26/17 quetiapine [Seroquel] 200 mg PO HS #30 tab 10/26/17 Allergies Allergy/AdvReac Type Severity Reaction Status Date / Time atorvastatin Allergy Unknown Swelling Verified 04/24/17 14:35 lisinopril Allergy Edema, Verified 10/26/17 09:46 Localized Review of Systems ROS: all other systems reviewed are negative [facility] Social History Social History Substance History: No History of Abuse Second Hand Smoke Exposure: Yes Smoking Status: Current every day smoker Tobacco Type: Cigarettes Packs Per Day: 0.5 Cigarettes Per Day: 10.0 How Often Do You Have a Drink Containing Alcohol: 4 or more times a week Recent Travel in [facility] within the Last 8 Weeks: No Recent Out of Country Travel within the Last 8 Weeks: No Immunization History Tetanus Immunization: <5 Years Exam Narrative Exam Narrative: GENERAL: WD,WN in NADresting comfortably in bed SKIN: Focused skin assessment warm/dry. HEAD: Atraumatic. Normocephalic. EYES: Pupils equal and round. No scleral icterus. No injection or drainage. ENT: No nasal bleeding or discharge. Mucous membranes pink and moist. NECK: Trachea midline. No JVD. No midline TTP CARDIOVASCULAR: Regular rate and rhythm. No murmur appreciated. RESPIRATORY: No accessory muscle use. Clear to auscultation. Breath sounds equal bilaterally. MUSCULOSKELETAL: No obvious deformities. No clubbing. No cyanosis. No edema. left knee- 2 abrasions to knee, different healing stages. TTP to knee with edema. Limited ROM secondary to pain. He is reluctant to move knee. Able flex hip and move ankle without issue. NEUROLOGICAL: Awake and alert. Cranial nerves II through XII intact. Motor and sensory grossly within normal limits. Five out of 5 muscle strength in all muscle groups. Normal speech. PSYCHIATRIC: Appropriate mood and affect; insight and judgment normal. Course Initial Documented Vital Signs Temperature 98.5 F 10/31/17 06:59 Pulse Rate 81 10/31/17 06:59 Respiratory Rate 17 10/31/17 06:59 Blood Pressure 198/110 H 10/31/17 06:59 Pulse Oximetry 98 10/31/17 06:59 Last Documented Vital Signs Temperature 97.8 F 11/01/17 04:00 Pulse Rate 54 L 11/01/17 04:00 Respiratory Rate 20 11/01/17 04:00 Blood Pressure 150/89 H 11/01/17 04:00 Pulse Oximetry 98 11/01/17 04:00 Medical Decision Making CHARITO Attestation CHARITO supervised visit: Yes Attestation: I, Dr. Pires, have reviewed the advance practice practitioner's documentation and am in agreement, met with the patient face to face, made the diagnosis, and the medical decision making was done by me. *My assessment and Findings: Acute bilateral frontal subdural hematomas. History of alcohol abuse. Patient has no midline shift. Patient will be admitted to the hospital under the hospitalist service. There is a call out to Dr. Davi ralph, neurosurgery for consultation. [facility] Narrative Medical decision making narrative: 57-year-old male presents to the emergency department for evaluation of left knee pain that started after presumed fall that occurred last night. Patient states he "may have blacked out". He admits to drinking alcohol last night and states this is her it has occurred before. Currently has a mild headache. X-ray ordered of left knee and without fracture. Small effusion present in the patella. CT head demonstrates acute subdural hematoma. I discussed with my attending. Will work on lowering blood pressure with labetalol. I reexamined the patient after the findings. He denies any numbness , tingling, weakness, nausea, vomiting or diarrhea. Labs ordered for review. Neurosurgery call placed for discussion. Please see my attending's note for further information regarding disposition. Medical Screen Exam Complete: Yes Emergency Medical Condition: Yes Differential Diagnosis Differential Diagnosis: left knee fracture, left knee abrasion, left knee sprain Medical Records Medical records reviewed: Yes I reviewed the patient's medical records. Pt presented to the ED 10/26 for HTN. Lab Data Result diagrams: 11/01/17 04:11 11/01/17 04:11 Lab Results 10/31/17 10/31/17 10/31/17 Range/Units 09:00 09:00 09:00 WBC 4.4 (4.0-11.0) th/mm3 RBC 3.87 L (4.50-5.90) mil/mm3 Hgb 13.5 (13.0-17.0) gm/dL Hct 39.7 (39.0-51.0) % MCV 102.6 H (80.0-100.0) fL MCH 34.9 H (27.0-34.0) pg MCHC 34.1 (32.0-36.0) % RDW 12.9 (11.6-17.2) % Plt Count 213 (150-450) th/mm3 MPV 7.6 (7.0-11.0) fL Neut % (Auto) 55.7 (16.0-70.0) % Lymph % (Auto) 36.7 (9.0-44.0) % Sebastian % (Auto) 5.7 (0.0-8.0) % Eos % (Auto) 1.1 (0.0-4.0) % Baso % (Auto) 0.8 (0.0-2.0) % Neut # (Auto) 2.5 (1.8-7.7) th/mm3 Lymph # (Auto) 1.6 (1.0-4.8) th/mm3 [place] # (Auto) 0.3 (0.0-0.9) th/mm3 Eos # (Auto) 0.0 (0.0-0.4) th/mm3 Baso # (Auto) 0.0 (0.0-0.2) th/mm3 WBC Differential . Differential Comment Auto diff final PT 10.0 (9.8-11.6) sec INR 1.0 Ratio APTT 25.2 (24.3-30.1) sec Sodium 140 (136-145) meq/L Potassium 4.5 (3.5-5.1) meq/L Chloride 107 (98-107) meq/L Carbon Dioxide 22.4 (21.0-32.0) meq/L Anion Gap 11 (5-15) meq/L BUN 9 (7-18) mg/dL Creatinine 0.73 (0.60-1.30) mg/dL Estimated GFR Greater than 89 (>89) mL/min Random Glucose 75 (74-106) mg/dL Calcium 8.6 (8.5-10.1) mg/dL Magnesium (1.5-2.5) mg/dL Total Bilirubin 0.4 (0.2-1.0) mg/dL AST 78 H (15-37) U/L ALT 46 (12-78) U/L Alkaline Phosphatase 101 (45-117) U/L Total Protein 8.4 H (6.4-8.2) g/dL Albumin 3.0 L (3.4-5.0) g/dL Nasal Screen MRSA (PCR) (Negative) Urine Opiates Screen (Neg) Ur Barbiturates Screen (Neg) Ur Amphetamines Screen (Neg) U Benzodiazepines Scrn (Neg) Urine Cocaine Screen (Neg) U Cannabinoids Screen (Neg) Serum Alcohol (0-5) mg/dL 10/31/17 10/31/17 10/31/17 Range/Units 09:00 13:30 14:00 WBC (4.0-11.0) th/mm3 RBC (4.50-5.90) mil/mm3 Hgb (13.0-17.0) gm/dL Hct (39.0-51.0) % MCV (80.0-100.0) fL MCH (27.0-34.0) pg MCHC (32.0-36.0) % RDW (11.6-17.2) % Plt Count (150-450) th/mm3 MPV (7.0-11.0) fL Neut % (Auto) (16.0-70.0) % Lymph % (Auto) (9.0-44.0) % [place] % (Auto) (0.0-8.0) % Eos % (Auto) (0.0-4.0) % Baso % (Auto) (0.0-2.0) % Neut # (Auto) (1.8-7.7) th/mm3 Lymph # (Auto) (1.0-4.8) th/mm3 [place] # (Auto) (0.0-0.9) th/mm3 Eos # (Auto) (0.0-0.4) th/mm3 Baso # (Auto) (0.0-0.2) th/mm3 WBC Differential Differential Comment PT (9.8-11.6) sec INR Ratio APTT (24.3-30.1) sec Sodium (136-145) meq/L Potassium (3.5-5.1) meq/L Chloride (98-107) meq/L Carbon Dioxide (21.0-32.0) meq/L Anion Gap (5-15) meq/L BUN (7-18) mg/dL Creatinine (0.60-1.30) mg/dL Estimated GFR (>89) mL/min Random Glucose (74-106) mg/dL Calcium (8.5-10.1) mg/dL Magnesium (1.5-2.5) mg/dL Total Bilirubin (0.2-1.0) mg/dL AST (15-37) U/L ALT (12-78) U/L Alkaline Phosphatase (45-117) U/L Total Protein (6.4-8.2) g/dL Albumin (3.4-5.0) g/dL Nasal Screen MRSA (PCR) Mrsa detected (Negative) Urine Opiates Screen Neg (Neg) Ur Barbiturates Screen Neg (Neg) Ur Amphetamines Screen Neg (Neg) U Benzodiazepines Scrn Neg (Neg) Urine Cocaine Screen Neg (Neg) U Cannabinoids Screen Neg (Neg) Serum Alcohol 5 (0-5) mg/dL 11/01/17 11/01/17 Range/Units 04:11 04:11 WBC 4.1 (4.0-11.0) th/mm3 RBC 3.90 L (4.50-5.90) mil/mm3 Hgb 13.6 (13.0-17.0) gm/dL Hct 40.0 (39.0-51.0) % MCV 102.8 H (80.0-100.0) fL MCH 34.8 H (27.0-34.0) pg MCHC 33.9 (32.0-36.0) % RDW 12.5 (11.6-17.2) % Plt Count 192 (150-450) th/mm3 MPV 7.6 (7.0-11.0) fL Neut % (Auto) 41.9 (16.0-70.0) % Lymph % (Auto) 47.4 H (9.0-44.0) % Sebastian % (Auto) 7.0 (0.0-8.0) % Eos % (Auto) 3.2 (0.0-4.0) % Baso % (Auto) 0.5 (0.0-2.0) % Neut # (Auto) 1.7 L (1.8-7.7) th/mm3 Lymph # (Auto) 2.0 (1.0-4.8) th/mm3 [place] # (Auto) 0.3 (0.0-0.9) th/mm3 Eos # (Auto) 0.1 (0.0-0.4) th/mm3 Baso # (Auto) 0.0 (0.0-0.2) th/mm3 WBC Differential . Differential Comment Auto diff final PT (9.8-11.6) sec INR Ratio APTT (24.3-30.1) sec Sodium 137 (136-145) meq/L Potassium 3.7 D (3.5-5.1) meq/L Chloride 103 (98-107) meq/L Carbon Dioxide 25.0 (21.0-32.0) meq/L Anion Gap 9 (5-15) meq/L BUN 11 (7-18) mg/dL Creatinine 0.75 (0.60-1.30) mg/dL Estimated GFR Greater than 89 (>89) mL/min Random Glucose 95 (74-106) mg/dL Calcium 8.5 (8.5-10.1) mg/dL Magnesium 1.6 (1.5-2.5) mg/dL Total Bilirubin 0.5 (0.2-1.0) mg/dL AST 48 H (15-37) U/L ALT 36 (12-78) U/L Alkaline Phosphatase 88 (45-117) U/L Total Protein 7.3 D (6.4-8.2) g/dL Albumin 2.6 L (3.4-5.0) g/dL Nasal Screen MRSA (PCR) (Negative) Urine Opiates Screen (Neg) Ur Barbiturates Screen (Neg) Ur Amphetamines Screen (Neg) U Benzodiazepines Scrn (Neg) Urine Cocaine Screen (Neg) U Cannabinoids Screen (Neg) Serum Alcohol (0-5) mg/dL Imaging Data Radiologist's impression: Knee X-Ray 10/31/17 07:15 CONCLUSION: 1. Small suprapatellar knee joint effusion. 2. Mild degenerative changes involving the patellofemoral and femorotibial joints. 3. No acute fracture or dislocation. 4. Spurring at the insertion of the quadriceps tendon as well as at the origin and insertion of the patellar ligament with some soft tissue swelling at the insertion of the patellar ligament on the tibia. Head CT 10/31/17 07:19 CONCLUSION: 1. Acute subdural hematomas within the frontal regions bilaterally much larger on the left than the right. The left frontal subdural hematoma measures 11 mm in greatest width in the right measures 3 mm in greatest width. There is some mass effect upon the left frontal lobe but no midline shift. . Head CT 11/01/17 05:00 CONCLUSION: No significant change. . Discharge Plan Discharge Disposition Patient Disposition: 30 Still Patient Discharge Condition Condition: Stable Discharge Details Diagnosis: Subdural hematoma, Knee contusion Physicians Team ED Provider: Dennis Pires ED Midlevel Provider: Antonietta Richmond Primary Care Provider: Primary Care Mirian Carrington Attending Provider: Nicolas Nolan Other Providers: Davi Rodriguez Status ED Status: Left Department Discharge Information Discharge Date/Time: 10/31/17 14:08
--- NOTE | 2017-10-31 08:10 | XR ---
EXAM DATE: 10/31/2017 8:05 AM EDT AGE/SEX: 57 years / Male INDICATIONS: Fall last night. CLINICAL DATA: This is the patient's initial encounter. Patient reports that signs and symptoms have been present for 2 days and indicates a pain score of 3/10. MEDICAL/SURGICAL HISTORY: Hypertension. None. COMPARISON: No prior exams available for comparison. FINDINGS: Spurring is noted at the insertion of the quadriceps tendon on the patella as well as the origin and insertion of the patellar ligament. There is a small suprapatellar knee joint effusion. Mild degenera tive changes are noted involving the patellofemoral and femorotibial joints. There is no acute fractu re or dislocation. Mild soft tissue swelling is noted at the insertion of the patellar ligament on th e tibia. CONCLUSION: 1. Small suprapatellar knee joint effusion. 2. Mild degenerative changes involving the patellofemoral and femorotibial joints. 3. No acute fracture or dislocation. 4. Spurring at the insertion of the quadriceps tendon as well as at the origin and insertion of the patellar ligament with some soft tissue swelling at the insertion of the patellar ligament on the tib ia. Electronically signed by: Forest Hernandez MD 10/31/2017 8:08 AM EDT
--- NOTE | 2017-10-31 08:23 | CT ---
EXAM DATE: 10/31/2017 8:13 AM EDT AGE/SEX: 57 years / Male INDICATIONS: Hypertension, Cephalgia. CLINICAL DATA: This is the patient's initial encounter. Patient reports that signs and symptoms have been present for 1 day and indicates a pain score of 5/10. MEDICAL/SURGICAL HISTORY: Hypertension. prior mandible fracture None. RADIATION DOSE: 56.35 CTDI (mGy) COMPARISON: [facility] [place], [place] BRAIN W/O CONTRAST, 06/03/2017. [facility] [place], [place] BRAIN W/O CONTRAST, 06/04/2016. . TECHNIQUE: CT of the head without contrast. Using automated exposure control and adjustment of the mA and/or kV according to patient size, radiation dose was kept as low as reasonably achievable to ob tain optimal diagnostic quality images. DICOM format image data is available electronically for revi ew and comparison. FINDINGS: There are acute subdural hematomas within the frontal regions bilaterally much larger on the left lita n the right. The left frontal subdural hematoma measures 11 mm in greatest width in the right measure s 3 mm in greatest width. There is some mass effect upon the left frontal lobe but no midline shift. Underlying diffuse cerebral atrophy is noted. There is no acute infarct. The bony structures are unre markable. CONCLUSION: 1. Acute subdural hematomas within the frontal regions bilaterally much larger on the left than the right. The left frontal subdural hematoma measures 11 mm in greatest width in the right measures 3 mm in greatest width. There is some mass effect upon the left frontal lobe but no midline shift. . Electronically signed by: Forest Hernandez MD 10/31/2017 8:22 AM EDT
[2017-10-31] MEDS ORDERED: Labetalol HCl Inj 100 MG/20 ML Vial IV.PUSH ONE (08:40)
[2017-10-31] MEDS ORDERED: Sod Chloride 0.9% Inj 1,000 ML IV.CONT SCH (08:45)
[2017-10-31 09:32] LABS: Baso % (Auto) 0.8 % (0.0-2.0); Eos % (Auto) 1.1 % (0.0-4.0); Hematocrit 39.7 % (39.0-51.0); Hemoglobin 13.5 gm/dL (13.0-17.0); Lymph # (Auto) 1.6 th/mm3 (1.0-4.8); Lymph % (Auto) 36.7 % (9.0-44.0); Mean Corpuscular HGB Conc 34.1 % (32.0-36.0); Mean Corpuscular Hemoglobin 34.9 pg (27.0-34.0); Mean Corpuscular Volume 102.6 fL (80.0-100.0); Mean Platelet Volume 7.6 fL (7.0-11.0); Mono # (Auto) 0.3 th/mm3 (0.0-0.9); Mono % (Auto) 5.7 % (0.0-8.0); Neut # (Auto) 2.5 th/mm3 (1.8-7.7); Neut % (Auto) 55.7 % (16.0-70.0); Platelet Count 213 th/mm3 (150-450); Red Blood Count 3.87 mil/mm3 (4.50-5.90); Red Cell Distribution Width 12.9 % (11.6-17.2); White Blood Count 4.4 th/mm3 (4.0-11.0)
[2017-10-31] MEDS ORDERED: Haloperidol Inj 5 MG/ML Ampul IV.PUSH PRN (09:40)
[2017-10-31] MEDS ORDERED: LORazepam 1 MG Tablet PO PRN (09:40)
[2017-10-31 09:44] LABS: Activated Partial Thrombo Time 25.2 sec (24.3-30.1)
--- NOTE | 2017-10-31 09:46 | P.CONNS ---
History of Present Illness Service: neurosurgery Consult date: 10/31/17 Requesting Physician: Dennis Pires Reason for Consult: Subdural hematoma Primary Care Provider: No Primary Care Physician History of Present Illness: This is a 57 yo -Citizen Of The [place] male with history of arterial hypertension, alcohol dependence who presented to the emergency department initially for left knee pain since he woke. He might have fallen last night but was drunk and does not remember. He admits to drinking about 10-12 beers daily. Further workup in the ER including a CT of the head showed acute bilateral frontal subdural hematomas larger on the left (11 mm) than the right (3mm). There is mass effect upon the left frontal lobe but no midline shift. His left knee x-ray showed small prepatellar effusion. He was also an active alcohol withdrawal and critical care medicine was requested to admit the patient. He is currently lying in bed hypertensive tachycardic tremulous appears to be in alcohol withdrawal. . Started on CIWA protocol. Neurosurgery consultation was requested Review of Systems All other systems reviewed negative except as stated in HPI [facility] - History History Provided By: Patient - Medical History Medical History: Medical History (Last Reviewed 10/31/17 @ 12:50 by Davi Rodriguez MD) Suicidal ideations (Resolved) PTSD (post-traumatic stress disorder) (Chronic) Mandible fracture (Resolved) Hernia (Acute) Hypertension (Chronic) - Family History Family History: Family History (Last Reviewed 10/31/17 @ 12:50 by Davi Rodriguez MD) Other Stroke - Tobacco History Second Hand Smoke Exposure: Yes Tobacco Use In Past 30 Days: Yes Smoking Status: Current every day smoker Tobacco Type: Cigarettes Packs Per Day: 0.5 - Alcohol History How Often Do You Have a Drink Containing Alcohol: 4 or more times a week - Substance Use History Substance History: No History of Abuse - Travel History Recent Travel Out of the Country Within the Last 8 Weeks: No - Immunization History Tetanus Immunization: <5 Years Medications and Allergies Active Medications: Active Medications Flumazenil (Romazecon Inj) 0.2 mg IV.PUSH Q1M PRN PRN Reason: OVERSEDATION Haloperidol Lactate (Haldol Inj) 1 mg IV.PUSH Q15M PRN PRN Reason: for severe agitation Sodium Chloride (Ns Inj) 1,000 mls @ 70 mls/hr IV.CONT .[id number] BILL Stop: 10/31/17 23:02 Lorazepam (Ativan Inj) 2 mg IV.PUSH Q15M PRN PRN Reason: for CIWA > 20 Lorazepam (Ativan Inj) 2 mg IV.PUSH Q1H PRN PRN Reason: for CIWA 15-20 Lorazepam (Ativan Inj) 2 mg IV.PUSH Q2H PRN PRN Reason: for CIWA 11-14 Lorazepam (Ativan) 1 mg PO Q4H PRN PRN Reason: for CIWA 8-10 Lorazepam (Ativan) 2 mg PO Q2H PRN PRN Reason: for CIWA 11-14 Lorazepam (Ativan Inj) 1 mg IV.PUSH Q4H PRN PRN Reason: for CIWA 8-10 Allergies Allergy/AdvReac Type Severity Reaction Status Date / Time atorvastatin Allergy Unknown Swelling Verified 04/24/17 14:35 lisinopril Allergy Edema, Verified 10/26/17 09:46 Localized Home Medications Medication Instructions Recorded Confirmed Type trazodone 100 mg PO HS 10/26/17 10/31/17 History Exam Vital signs: Vital Signs 10/31/17 06:59 10/31/17 07:17 10/31/17 08:38 Temperature 98.5 F Pulse Rate 81 Respiratory Rate 17 Blood Pressure 198/110 H 191/99 H 188/96 H Pulse Oximetry 98 10/31/17 09:00 Temperature Pulse Rate 65 Respiratory Rate 18 Blood Pressure 172/93 H Pulse Oximetry 98 Intake & Output 10/30/17 10/31/17 10/31/17 18:59 06:59 18:59 Weight 68.039 kg Narrative: General. lying in bed tremulous appears to be in alcohol withdrawal The patient is alert, awake. Comfortable, in no acute distress. Speech is fluent. Cranial nerve examination: pupils to be equal, round and reactive to light. Extra-ocular movements are intact. Facial motor and sensory function are normal and symmetrical. Gross hearing appears intact. Sternocleidomastoid and trapezius muscles are symmetrical. Other cranial nerves are intact. Neck is soft and supple with a good range of motion without pain. Muscle strength is normal in all muscle groups of both upper and lower extremities. Sensory examination is intact to light touch and pin prick in both the upper and lower extremities. Deep tendon reflexes are symmetrical in both upper and lower extremities. There is a bilateral plantar flexion response. Cerebellar examination is unremarkable, without deficits. Lungs are clear Heart regular rhythm is regular rate SKIN: Warm and dry. Abrasions on anterior scalp and left knee Results - Laboratory Findings CBC and BMP: 10/31/17 09:00 10/31/17 09:00 Abnormal lab findings: Abnormal Labs 10/31/17 09:00 RBC 3.87 L MCV 102.6 H MCH 34.9 H Assessment and Plan - Plan I have reviewed the clinical and radiological findings Knee X-Ray 10/31/17 07:15 CONCLUSION: 1. Small suprapatellar knee joint effusion. 2. Mild degenerative changes involving the patellofemoral and femorotibial joints. 3. No acute fracture or dislocation. 4. Spurring at the insertion of the quadriceps tendon as well as at the origin and insertion of the patellar ligament with some soft tissue swelling at the insertion of the patellar ligament on the tibia. Head CT 10/31/17 07:19 CONCLUSION: 1. Acute subdural hematomas within the frontal regions bilaterally much larger on the left than the right. The left frontal subdural hematoma measures 11 mm in greatest width in the right measures 3 mm in greatest width. There is some mass effect upon the left frontal lobe but no midline shift. Neuro: neuro checks in a serial fashion. Recommend follow up MRI brain ETOH abuse. CIWA protocol. Monitor for signs of withdrawal. Thiamine, Folic Acid , vitamins, benzodiazepines as needed Pulmonary: aggressive pulmonary toilette, nasotracheal suction, and breathing treatments with nebulizers. Daily PT and OT Renal: Continue to monitor closely urine output, BUN and creatinine Endocrine: Continue to Monitor serial Acu checks and SSI as needed in detail ID continue to monitor for signs of infection Continue Protonix for stress ulcer prophylaxis Continue Francisco hose and SCD's for DVT prophylaxis Further recommendations will be provided depending on the patient's clinical evaluation and follow up studies.
[2017-10-31 09:48] LABS: Alanine Aminotransferase 46 U/L (12-78)
[2017-10-31 09:50] LABS: Alkaline Phosphatase 101 U/L (45-117); Anion Gap 11 meq/L (5-15); Aspartate Aminotransferase 78 U/L (15-37); Blood Urea Nitrogen 9 mg/dL (7-18); Calcium 8.6 mg/dL (8.5-10.1); Carbon Dioxide 22.4 meq/L (21.0-32.0); Chloride 107 meq/L (98-107); Glomerular Filtration Rate Greater Than 89 mL/min (>89); Glucose,Random 75 mg/dL (74-106); Sodium 140 meq/L (136-145); Total Protein 8.4 g/dL (6.4-8.2)
[2017-10-31 09:51] LABS: Potassium 4.5 meq/L (3.5-5.1)
[2017-10-31] MEDS ORDERED: Bisacodyl 10 MG Supp RECTAL PRN (10:50)
[2017-10-31] MEDS: Multivitamin Inj 10 ML, Thiamine Inj 100 MG, Folic Acid Inj 1 MG in Sodium Chlor 0.9% I... IV.SIG SCH (11:19)
--- NOTE | 2017-10-31 11:19 | P.HPCC ---
History of Present Illness Primary Care Physician: No Primary Care Physician Chief Complaint: Subdural hemorrhage History of Present Illness: Patient is a 57 yo -[place] male with past medical history significant for hypertension, alcohol dependence who presented to the emergency department initially for left knee pain since he woke up today. He might have fallen last night but was drunk and does not remember what happened. He admits to drinking about 10-12 beers daily on further questioning. Further workup in the ER including a CT of the head showed acute bilateral frontal subdural hematomas larger on the left (11 mm) than the right (3mm). There is some mass effect upon the left frontal lobe but no midline shift. His left knee x-ray showed small prepatellar effusion no acute fracture. Patient was also in alcohol withdrawal and critical care medicine was requested to admit the patient. Dr. Rodriguez from neurosurgery had been consulted I evaluated the patient in the emergency department. He is currently lying in bed hypertensive tachycardic tremulous appears to be in alcohol withdrawal. Started on CIWA protocol. We will add Precedex if needed, supplement thiamine and multivitamin. CT of the head personally reviewed and discussed with Dr. Rodriguez. Plan for medical management at this time. Repeat CT scan in a.m. - Diagnosis (1) Acute subdural hematoma (2) Alcohol dependence with withdrawal (3) Tobacco use Inpatient Certification: I certify that the inpatient services were ordered in accordance with Medicare regulations governing the order. This includes certification that hospital inpatient services are reasonable and necessary and in the case of services not specified as inpatient-only under 42 CFR 419.22(n), that they are appropriately provided as inpatient services in accordance to with the 2-midnight benchmark under 43 CFR 412.3(e) Estimated Total Length of Stay (Days): 5 Plans for Post Hospital Care: Not yet determined Review of Systems All other systems reviewed negative except as stated in HPI [facility] - History History Provided By: Patient - Medical History Medical History: Medical History (Last Reviewed 10/31/17 @ 12:50 by Davi Rodriguez MD) Suicidal ideations (Resolved) PTSD (post-traumatic stress disorder) (Chronic) Mandible fracture (Resolved) Hernia (Acute) Hypertension (Chronic) - Family History Family History: Family History (Last Updated 10/31/17 @ 11:25 by Nicolas Nolan MD) Other Stroke - Tobacco History Second Hand Smoke Exposure: Yes Tobacco Use In Past 30 Days: Yes Smoking Status: Current every day smoker Tobacco Type: Cigarettes Packs Per Day: 0.5 - Alcohol History How Often Do You Have a Drink Containing Alcohol: 4 or more times a week - Substance Use History Substance History: No History of Abuse - Travel History Recent Travel in the [place] Within the Last 8 Weeks: No Recent Travel Out of the Country Within the Last 8 Weeks: No - Immunization History Tetanus Immunization: <5 Years Medications and Allergies Active Medications: Active Medications Acetaminophen (Tylenol) 650 mg PO Q6H PRN PRN Reason: PAIN 1-10 AND/OR FEVER >101F Al Hydroxide/Mg Hydroxide (Milk Of Magnesia Liq) 30 ml PO Q12H PRN PRN Reason: Mild Constipation Albuterol (Duoneb Neb (Prn)) 1 ampul NEB Q2HR NEB PRN PRN Reason: WHEEZING Bisacodyl (Dulcolax Supp) 10 mg RECTAL DAILY PRN PRN Reason: SEVERE CONSITIPATION Chlorhexidine Gluconate (Chlorhexidine 2% Cloth) 3 pack TOPICAL DAILY@0400 BILL Stop: 11/06/17 03:59 Chlorhexidine Gluconate (Chlorhexidine 2% Cloth) 3 pack TOPICAL DAILY@0400 PRN PRN Reason: Extra cloth needed Stop: 11/06/17 03:59 Famotidine (Pepcid Pf Inj) 20 mg IV.PUSH Q12HR BILL Flumazenil (Romazecon Inj) 0.2 mg IV.PUSH Q1M PRN PRN Reason: OVERSEDATION Haloperidol Lactate (Haldol Inj) 1 mg IV.PUSH Q15M PRN PRN Reason: for severe agitation Multivitamins 10 ml/ Thiamine HCl 100 mg/ Folic Acid 1 mg/Sodium Chloride 511.2 mls @ 125 mls/hr IV.SIG Q24H BILL Stop: 11/02/17 15:06 Sodium Chloride (Ns Inj) 1,000 mls @ 84 mls/hr IV.CONT .[id number] BILL Lactulose (Lactulose Liq) 30 ml PO DAILY PRN PRN Reason: SEVERE CONSITIPATION Lorazepam (Ativan Inj) 2 mg IV.PUSH Q15M PRN PRN Reason: for CIWA > 20 Lorazepam (Ativan Inj) 2 mg IV.PUSH Q1H PRN PRN Reason: for CIWA 15-20 Lorazepam (Ativan Inj) 2 mg IV.PUSH Q2H PRN PRN Reason: for CIWA 11-14 Lorazepam (Ativan) 1 mg PO Q4H PRN PRN Reason: for CIWA 8-10 Lorazepam (Ativan) 2 mg PO Q2H PRN PRN Reason: for CIWA 11-14 Lorazepam (Ativan Inj) 1 mg IV.PUSH Q4H PRN PRN Reason: for CIWA 8-10 Senna/Docusate Sodium (Simona-Colace) 1 tab PO BID BILL Sennosides (Senokot) 17.2 mg PO Q12H PRN PRN Reason: Moderate Constipation Sodium Chloride (Ns Flush) 2 ml IV.FLUSH BID BILL Sodium Chloride (Ns Flush) 2 ml IV.FLUSH UNSCH PRN PRN Reason: FLUSH AFTER USING IV ACCESS Allergies Allergy/AdvReac Type Severity Reaction Status Date / Time atorvastatin Allergy Unknown Swelling Verified 04/24/17 14:35 lisinopril Allergy Edema, Verified 10/26/17 09:46 Localized Home Medications Medication Instructions Recorded Confirmed Type trazodone 100 mg PO HS 10/26/17 10/31/17 History Results - Labs CBC & Chem 7: 10/31/17 09:00 10/31/17 09:00 Labs: Short CBC 10/31/17 Range/Units 09:00 WBC 4.4 (4.0-11.0) th/mm3 Hgb 13.5 (13.0-17.0) gm/dL Hct 39.7 (39.0-51.0) % Plt Count 213 (150-450) th/mm3 [facility] 10/31/17 09:00 Sodium 140 Potassium 4.5 Chloride 107 Carbon Dioxide 22.4 BUN 9 Creatinine 0.73 Calcium 8.6 Liver Function 10/31/17 Range/Units 09:00 Total Bilirubin 0.4 (0.2-1.0) mg/dL AST 78 H (15-37) U/L ALT 46 (12-78) U/L Alkaline Phosphatase 101 (45-117) U/L Albumin 3.0 L (3.4-5.0) g/dL - Imaging Impressions Knee X-Ray 10/31/17 07:15 CONCLUSION: 1. Small suprapatellar knee joint effusion. 2. Mild degenerative changes involving the patellofemoral and femorotibial joints. 3. No acute fracture or dislocation. 4. Spurring at the insertion of the quadriceps tendon as well as at the origin and insertion of the patellar ligament with some soft tissue swelling at the insertion of the patellar ligament on the tibia. Head CT 10/31/17 07:19 CONCLUSION: 1. Acute subdural hematomas within the frontal regions bilaterally much larger on the left than the right. The left frontal subdural hematoma measures 11 mm in greatest width in the right measures 3 mm in greatest width. There is some mass effect upon the left frontal lobe but no midline shift. . Exam Vital signs: Vital Signs 10/31/17 06:59 10/31/17 07:17 10/31/17 08:38 Temperature 98.5 F Pulse Rate 81 Respiratory Rate 17 Blood Pressure 198/110 H 191/99 H 188/96 H Pulse Oximetry 98 10/31/17 09:00 10/31/17 09:51 Temperature Pulse Rate 65 65 Respiratory Rate 18 18 Blood Pressure 172/93 H 165/85 H Pulse Oximetry 98 99 Intake & Output 10/30/17 10/31/17 10/31/17 18:59 06:59 18:59 Weight 68.039 kg Narrative: GENERAL: Well-nourished -[place] male lying in bed tremulous appears to be in alcohol withdrawal SKIN: Warm and dry. Abrasions on anterior scalp and left knee HEAD: Atraumatic. Normocephalic. EYES: Pupils equal and round. No scleral icterus. No injection or drainage. ENT: No nasal bleeding or discharge. NECK: Trachea midline. No JVD. CARDIOVASCULAR: Tachycardic hypertensive. No murmur appreciated. RESPIRATORY: No accessory muscle use. Clear to auscultation. Breath sounds equal bilaterally. MUSCULOSKELETAL: Left knee has abrasions, slightly tender on movements mild swelling, limited ROM secondary to pain. NEUROLOGICAL: Awake and alert, tremulous. Cranial nerves II through XII intact. Motor and sensory grossly within normal limits. Five out of 5 muscle strength in all muscle groups. Normal speech. Caprini VTE Risk Assessment Caprini VTE Risk Assessment: Moderate/High Risk (score >= 2) VTE Pharmacological Exception Reason: Hemorrhage Caprini Risk Assessment Model: Point Value = 1 Point Value = 2 Point Value = 3 Point Value = 5 Age 41-60 Minor surgery BMI > 25 kg/m2 Swollen legs Varicose veins or History of unexplained or recurrent spontaneous Oral contraceptives or hormone replacement Sepsis (< 1 month) Serious lung disease, including pneumonia (< 1 month) Abnormal pulmonary function Acute myocardial infarction Congestive heart failure (< 1 month) History of inflammatory bowel disease Medical patient at bed rest Age 61-74 Arthroscopic surgery Major open surgery (> 45 min) Laparoscopic surgery (> 45 min) Malignancy Confined to bed (> 72 hours) Immobilizing plaster cast Central venous access Age >= 75 History of VTE Family history of VTE Factor V Leiden Prothrombin [id number] Lupus anticoagulant Anticardiolipin antibodies Elevated serum homocysteine Heparin-induced thrombocytopenia Other congenital or acquired thrombophilia Stroke (< 1 month) Elective arthroplasty Hip, pelvis, or leg fracture Acute spinal cord injury (< 1 month) Prophylaxis Regimen: Total Risk Factor Score Risk Level Prophylaxis Regimen 0-1 Low Early ambulation 2 Moderate Order ONE of the following: *Sequential Compression Device (SCD) *Heparin 5000 units SQ BID 3-4 Higher Order ONE of the following medications: *Heparin 5000 units SQ TID *Enoxaparin/Lovenox 40 mg SQ daily (WT < 150 kg, CrCl > 30 mL/min) *Enoxaparin/Lovenox 30 mg SQ daily (WT < 150 kg, CrCl > 10-29 mL/min) *Enoxaparin/Lovenox 30 mg SQ BID (WT < 150 kg, CrCl > 30 mL/min) AND/OR *Sequential Compression Device (SCD) 5 or more Highest Order ONE of the following medications: *Heparin 5000 units SQ TID (Preferred with Epidurals) *Enoxaparin/Lovenox 40 mg SQ daily (WT < 150 kg, CrCl > 30 mL/min) *Enoxaparin/Lovenox 30 mg SQ daily (WT < 150 kg, CrCl > 10-29 mL/min) *Enoxaparin/Lovenox 30 mg SQ BID (WT < 150 kg, CrCl > 30 mL/min) AND *Sequential Compression Device (SCD) Assessment and Plan - Problem List (1) Acute subdural hematoma Code(s): S06.5X9A - Traumatic subdural hemorrhage with loss of consciousness of unspecified duration, initial encounter Status: Acute (2) Alcohol dependence with withdrawal Code(s): F10.239 - Alcohol dependence with withdrawal, unspecified Status: Acute (3) Tobacco use Code(s): Z72.0 - Tobacco use Status: Chronic - Assessment and Plan Plan: NEURO: Acute bilateral frontal subdural hematoma Alcohol withdrawal Alcohol dependence -CT of the head shows acute appearing bilateral subdural hemorrhage left frontal 11 mm right frontal 3 mm -Mass-effect on left frontal lobe without midline shift, continue normal saline keep sodium 145-150 -Follow-up CT scan in a.m. avoid hypoxemia and hypercarbia -Watch closely for airway protection, neurochecks every hour -CIWA protocol, Precedex if needed -Supplement multivitamin thiamine -Neurosurgery Dr. Rodriguez consulted, I discussed with him -Medical management at this time RESP: Tobacco abuse -DuoNeb every 6 hours as needed -Incentive spirometry, aggressive pulmonary toilet CV: Hypertension -Normal saline IV fluids 84 ml per hour -Continue home medications amlodipine, clonidine. Hold losartan -IV labetalol 20 mg every 2 hours as needed for BP more than 160/95 GI: -Heart healthy diet, IV famotidine : -Monitor renal function closely. ID: -Monitor closely for infection HEME: -Monitor CBC, coags ENDO: -Electrolyte replacement per protocol -Sliding scale insulin if needed MSK: Left knee pain, mild effusion -X-ray shows mild effusion no acute fracture. If pain persist will need MRI PROPH: -Bilateral lower extremity SCDs. Continue famotidine. Chemical DVT prophylaxis is contraindicated LINES: -Utilize peripheral IVs, central line if needed CC time 42 min Code Status: Full Discussed Condition With: Dr. Pires
[2017-10-31] MEDS ORDERED: Labetalol HCl Inj 100 MG/20 ML Vial IV.PUSH PRN (11:42)
[2017-10-31] MEDS ORDERED: Magnesium Sulfate Inj 4 GM in Sodium Chlor 0.9% Inj 92 ML IV.SIG PRN (11:51)
[2017-10-31] MEDS ORDERED: Potassium Chloride 25 MEQ Effervescent Tablet PO PRN (11:51)
[2017-10-31] MEDS ORDERED: Potassium Phosphate Inj 30 MMOL in Sodium Chlor 0.9% Inj 250 ML IV.SIG PRN (11:51)
[2017-10-31] MEDS ORDERED: Potassium Chlor 40 mEq Premix 40 MEQ/100 ML PIGGYBACK IV.SIG PRN ×2 (11:51)
[2017-10-31] MEDS ORDERED: Potassium Phosphate 500 MG Soluble Tablet PO PRN ×2 (11:51)
[2017-10-31] MEDS ORDERED: Magnesium Oxide 400 MG Tablet PO PRN (11:51)
[2017-10-31] MEDS ORDERED: Potassium Chlor 20 mEq Premix 20 MEQ/100 ML PIGGYBACK IV.SIG PRN ×2 (11:51)
[2017-10-31] MEDS ORDERED: Magnesium Sulfate Inj 2 GM in Sodium Chlor 0.9% Inj 96 ML IV.SIG PRN (11:51)
[2017-10-31] MEDS ORDERED: Sodium Phosphate Inj 30 MMOL in Sodium Chlor 0.9% Inj 250 ML IV.SIG PRN (11:51)
[2017-10-31] MEDS: Sod Chloride 0.9% Inj 1,000 ML IV.CONT SCH (14:21)
[2017-10-31 14:45] LABS: Amphetamine Screen,Urine Neg (Neg); Barbiturate Screen,Urine Neg (Neg); Cannabinoid Screen,Urine Neg (Neg); Cocaine Screen,Urine Neg (Neg)
[2017-10-31 14:47] LABS: Opiate Screen,Urine Neg (Neg)
[2017-10-31] MEDS: Acetaminophen 325 MG Tablet PO PRN ×2 (16:26→22:36)
[2017-10-31] MEDS: Famotidine PF Inj 20 MG/2 ML Vial IV.PUSH SCH (20:49)
[2017-10-31] MEDS: Senna/Docusate Sodium 8.6/50 MG Tablet PO SCH (20:50)
[2017-11-01] MEDS ORDERED: Chlorhexidine Gluconate 2% 1 Pack (2 Cloths) TOPICAL PRN (04:00)
[2017-11-01] MEDS: Chlorhexidine Gluconate 2% 1 Pack (2 Cloths) TOPICAL SCH (04:07)
[2017-11-01] MEDS: Acetaminophen 325 MG Tablet PO PRN ×2 (04:31→21:03)
[2017-11-01 05:27] LABS: Baso % (Auto) 0.5 % (0.0-2.0); Eos # (Auto) 0.1 th/mm3 (0.0-0.4); Eos % (Auto) 3.2 % (0.0-4.0); Hemoglobin 13.6 gm/dL (13.0-17.0); Lymph % (Auto) 47.4 % (9.0-44.0); Mean Corpuscular HGB Conc 33.9 % (32.0-36.0); Mean Corpuscular Hemoglobin 34.8 pg (27.0-34.0); Mean Corpuscular Volume 102.8 fL (80.0-100.0); Mean Platelet Volume 7.6 fL (7.0-11.0); Mono # (Auto) 0.3 th/mm3 (0.0-0.9); Neut # (Auto) 1.7 th/mm3 (1.8-7.7); Neut % (Auto) 41.9 % (16.0-70.0); Platelet Count 192 th/mm3 (150-450); Red Cell Distribution Width 12.5 % (11.6-17.2); White Blood Count 4.1 th/mm3 (4.0-11.0)
[2017-11-01 05:52] LABS: Albumin 2.6 g/dL (3.4-5.0); Anion Gap 9 meq/L (5-15); Aspartate Aminotransferase 48 U/L (15-37); Blood Urea Nitrogen 11 mg/dL (7-18); Calcium 8.5 mg/dL (8.5-10.1); Chloride 103 meq/L (98-107); Glomerular Filtration Rate Greater Than 89 mL/min (>89); Glucose,Random 95 mg/dL (74-106); Magnesium 1.6 mg/dL (1.5-2.5); Potassium 3.7 meq/L (3.5-5.1); Sodium 137 meq/L (136-145)
[2017-11-01] MEDS: Sod Chloride 0.9% Inj 1,000 ML IV.CONT SCH ×2 (05:55→11:41)
[2017-11-01 05:56] LABS: Alanine Aminotransferase 36 U/L (12-78); Alkaline Phosphatase 88 U/L (45-117); Total Protein 7.3 g/dL (6.4-8.2)
--- NOTE | 2017-11-01 06:00 | CT ---
EXAM DATE: 11/01/2017 3:42 AM EDT AGE/SEX: 57 years / Male INDICATIONS: Evaluate hematoma. CLINICAL DATA: This is the patient's initial encounter. Patient reports that signs and symptoms have been present for 1 day and indicates a pain score of 3/10. MEDICAL/SURGICAL HISTORY: Non-responsive. Non-responsive. RADIATION DOSE: 56.35 CTDI (mGy) [place]PAR[place]: [facility] [place], 10/31/2017. . TECHNIQUE: CT of the head without contrast. Using automated exposure control and adjustment of the mA and/or kV according to patient size, radiation dose was kept as low as reasonably achievable to ob tain optimal diagnostic quality images. DICOM format image data is available electronically for revi ew and comparison. FINDINGS: Left orbital frontal extra-axial collection is unchanged in thickness and heterogeneous largely hygro matous density. The brain is elsewhere stable symmetric and unremarkable. Ventricles are symmetric an d normal. Posterior fossa and brainstem structures are normal. CONCLUSION: No significant change. . Electronically signed by: Ovidio Bruner MD 11/01/2017 5:59 AM EDT
--- NOTE | 2017-11-01 07:56 | P.PNCC ---
Subjective Subjective Remarks/Hospital Course: Patient is a 57 yo -[place] male with past medical history significant for hypertension, alcohol dependence who presented to the emergency department initially for left knee pain since he woke up today. He might have fallen last night but was drunk and does not remember what happened. He admits to drinking about 10-12 beers daily on further questioning. Further workup in the ER including a CT of the head showed acute bilateral frontal subdural hematomas larger on the left (11 mm) than the right (3mm). There is some mass effect upon the left frontal lobe but no midline shift. His left knee x-ray showed small prepatellar effusion no acute fracture. Patient was also in alcohol withdrawal and critical care medicine was requested to admit the patient. Dr. Rodriguez from neurosurgery had been consulted I evaluated the patient in the emergency department. He is currently lying in bed hypertensive tachycardic tremulous appears to be in alcohol withdrawal. Started on CIWA protocol. We will add Precedex if needed, supplement thiamine and multivitamin. CT of the head personally reviewed and discussed with Dr. Rodriguez. Plan for medical management at this time. Repeat CT scan in a.m. SUBJ 11/01: Remains stable overnight blood pressure adequately controlled. CT of the head shows stable bilateral subdural hematomas. No evidence of alcohol withdrawal. Knee pain improved per patient Objective Vital Signs / I&O: Vital Signs 10/31/17 08:38 10/31/17 09:00 10/31/17 09:51 Temperature Pulse Rate 65 65 Respiratory Rate 18 18 Blood Pressure 188/96 H 172/93 H 165/85 H Pulse Oximetry 98 99 10/31/17 13:44 10/31/17 16:00 10/31/17 17:37 Temperature 98.3 F 98.9 F Pulse Rate 62 67 Respiratory Rate 18 18 18 Blood Pressure 179/94 H 150/90 H Pulse Oximetry 98 99 10/31/17 20:00 11/01/17 00:00 11/01/17 04:00 Temperature 97.9 F 97.8 F 97.8 F Pulse Rate 64 56 L 54 L Respiratory Rate 28 H 21 20 Blood Pressure 144/93 H 138/84 150/89 H Pulse Oximetry 99 98 98 Intake & Output 10/31/17 11/01/17 11/01/17 18:59 06:59 18:59 Intake Total 991.2 / 991.2 1000 / 1000 Output Total 200 / 200 550 / 550 Balance 791.2 / 791.2 450 / 450 Weight 68.7 kg 67.3 kg Intake: IV 511.2 / 511.2 1000 / 1000 NS Inj 1,000 ML @ 84 mls/hr IV. 1000 / 1000 CONT .[id number] BILL Rx#:[id number] MVI-12 Inj 10 ML Thiamine Inj 511.2 / 511.2 100 MG Folvite Inj 1 MG In NS Inj 500 ML @ 125 mls/hr IV.SIG Q24H BILL Rx#:[id number] Oral 480 / 480 Output: Urine 200 / 200 550 / 550 Other: # Voids 3 4 Date of Last Bowel Movement 10/31/17 10/31/17 # Bowel Movements 2 1 Weight On Admission 68.7 kg Result Diagrams: 11/01/17 04:11 11/01/17 04:11 Assessment and Plan - Problem List (1) Acute subdural hematoma Code(s): S06.5X9A - Traumatic subdural hemorrhage with loss of consciousness of unspecified duration, initial encounter Status: Acute (2) Alcohol dependence with withdrawal Code(s): F10.239 - Alcohol dependence with withdrawal, unspecified Status: Acute (3) Tobacco use Code(s): Z72.0 - Tobacco use Status: Chronic - Assessment and Plan Plan: NEURO: Acute bilateral frontal subdural hematoma Alcohol withdrawal Alcohol dependence -CT of the head shows acute appearing bilateral subdural hemorrhage left frontal 11 mm right frontal 3 mm -Repeat CT head today in 11/01/2017 stable -Mass-effect on left frontal lobe without midline shift, continue normal saline keep sodium 145-150 -Currently protecting airway, neurochecks every hour -CIWA protocol, supplement multivitamin thiamine -Neurosurgery Dr. Rodriguez consulted, Medical management at this time -Strongly advised to quit drinking RESP: Tobacco abuse -DuoNeb every 6 hours as needed -Incentive spirometry, aggressive pulmonary toilet -Advised to quit smoking CV: Hypertension -Normal saline IV fluids 84 ml per hour -Continue home medications amlodipine, clonidine. Hold losartan -IV labetalol 20 mg every 2 hours as needed for BP more than 160/95 GI: -Heart healthy diet, IV famotidine : -Monitor renal function closely. ID: -Monitor closely for infection HEME: -Monitor CBC, coags ENDO: -Electrolyte replacement per protocol -Sliding scale insulin if needed MSK: Left knee pain, mild effusion -X-ray shows mild effusion no acute fracture. If pain persist will need MRI PROPH: -Bilateral lower extremity SCDs. Continue famotidine. Chemical DVT prophylaxis is contraindicated LINES: -Utilize peripheral IVs, central line if needed Level3 Critically ill but stable from subdural hemorrhage and alcohol withdrawal. Continue close neuro monitoring. Protecting airway will consult hospitalist to assume care tomorrow 11/02/2017
[2017-11-01] MEDS: Famotidine PF Inj 20 MG/2 ML Vial IV.PUSH SCH ×2 (08:40→20:55)
[2017-11-01] MEDS: Senna/Docusate Sodium 8.6/50 MG Tablet PO SCH ×2 (08:40→20:56)
[2017-11-01] MEDS ORDERED: amLODIPine 5 MG Tablet PO SCH (09:00)
[2017-11-01] MEDS: Multivitamin Inj 10 ML, Thiamine Inj 100 MG, Folic Acid Inj 1 MG in Sodium Chlor 0.9% I... IV.SIG SCH (12:24)
--- NOTE | 2017-11-01 16:39 | P.PNNS ---
Subjective Interval history: 11/01: f/u CT Brain this morning completed, stable findings, pt awake, alert, c/ o mild headaches. Physical Exam Vital signs: Vital Signs 10/31/17 17:37 10/31/17 20:00 11/01/17 00:00 Temperature 97.9 F 97.8 F Pulse Rate 64 56 L Respiratory Rate 18 28 H 21 Blood Pressure 144/93 H 138/84 Pulse Oximetry 99 98 11/01/17 04:00 11/01/17 08:00 11/01/17 12:00 Temperature 97.8 F 98.1 F 98.5 F Pulse Rate 54 L 54 L 65 Respiratory Rate 20 23 25 H Blood Pressure 150/89 H 153/93 H 162/92 H Pulse Oximetry 98 99 96 Intake & Output 10/31/17 11/01/17 11/01/17 18:59 06:59 18:59 Intake Total 991.2 / 991.2 1000 / 1000 Output Total 200 / 200 550 / 550 Balance 791.2 / 791.2 450 / 450 Weight 68.7 kg 67.3 kg Intake: IV 511.2 / 511.2 1000 / 1000 NS Inj 1,000 ML @ 84 mls/hr IV. 1000 / 1000 CONT .[id number] BILL Rx#:[id number] MVI-12 Inj 10 ML Thiamine Inj 511.2 / 511.2 100 MG Folvite Inj 1 MG In NS Inj 500 ML @ 125 mls/hr IV.SIG Q24H BILL Rx#:[id number] Oral 480 / 480 Output: Urine 200 / 200 550 / 550 Other: # Voids 3 4 Date of Last Bowel Movement 10/31/17 10/31/17 10/31/17 # Bowel Movements 2 1 Weight On Admission 68.7 kg Narrative: GENERAL: In bed NAD. SKIN: Warm and dry. HEAD: Atraumatic. Normocephalic. EYES: Pupils equal and round. No scleral icterus. No injection or drainage. ENT: No nasal bleeding or discharge. Mucous membranes pink and moist. NECK: Trachea midline. No JVD. CARDIOVASCULAR: Regular rate and rhythm. RESPIRATORY: No accessory muscle use. Clear to auscultation. Breath sounds equal bilaterally. GASTROINTESTINAL: Abdomen soft, non-tender, nondistended. MUSCULOSKELETAL: Extremities without clubbing, cyanosis, or edema. No obvious deformities. NEUROLOGICAL: Awake and alert. No obvious cranial nerve deficits. Motor grossly within normal limits. Five out of 5 muscle strength in the arms and legs. Normal speech. Assessment and Plan - Plan 57 y/o male possible fall etoh abuse Subdural hematoma, stable on f/u CT Brain, nonoperative Head CT 11/01/17 05:00 CONCLUSION: No significant change. . Head CT 10/31/17 07:19 CONCLUSION: 1. Acute subdural hematomas within the frontal regions bilaterally much larger on the left than the right. The left frontal subdural hematoma measures 11 mm in greatest width in the right measures 3 mm in greatest width. There is some mass effect upon the left frontal lobe but no midline shift. Plan: follow up CT Brain reviewed by Dr. Rodriguez, cont nonop mgt ok to transfer out of [facility] to neuro floor cont neuro checks Continue Protonix for stress ulcer prophylaxis Continue Francisco hose and SCD's for DVT prophylaxis CIWA protocol - mgt per critical care
[2017-11-02] MEDS: Chlorhexidine Gluconate 2% 1 Pack (2 Cloths) TOPICAL SCH (04:52)
[2017-11-02] MEDS: Sod Chloride 0.9% Inj 1,000 ML IV.CONT SCH ×3 (04:53→20:45)
[2017-11-02 05:11] LABS: Baso % (Auto) 0.6 % (0.0-2.0); Eos # (Auto) 0.1 th/mm3 (0.0-0.4); Eos % (Auto) 2.8 % (0.0-4.0); Hematocrit 40.8 % (39.0-51.0); Lymph # (Auto) 1.7 th/mm3 (1.0-4.8); Lymph % (Auto) 42.6 % (9.0-44.0); Mean Corpuscular HGB Conc 34.2 % (32.0-36.0); Mean Corpuscular Hemoglobin 35.1 pg (27.0-34.0); Mean Corpuscular Volume 102.7 fL (80.0-100.0); Mean Platelet Volume 8.2 fL (7.0-11.0); Mono # (Auto) 0.4 th/mm3 (0.0-0.9); Mono % (Auto) 8.7 % (0.0-8.0); Neut # (Auto) 1.8 th/mm3 (1.8-7.7); Neut % (Auto) 45.3 % (16.0-70.0); Platelet Count 173 th/mm3 (150-450); Red Blood Count 3.97 mil/mm3 (4.50-5.90); Red Cell Distribution Width 12.7 % (11.6-17.2); White Blood Count 4.1 th/mm3 (4.0-11.0)
[2017-11-02 05:19] LABS: Anion Gap 7 meq/L (5-15); Blood Urea Nitrogen 6 mg/dL (7-18); Calcium 8.4 mg/dL (8.5-10.1); Chloride 105 meq/L (98-107); Glomerular Filtration Rate Greater Than 89 mL/min (>89); Glucose,Random 100 mg/dL (74-106); Sodium 139 meq/L (136-145)
--- NOTE | 2017-11-02 08:12 | P.PNIM ---
Subjective Interval history: Mr. Cardoso was afebrile with intermittent tachypnea overnight with RR in mid 20' s. Per nursing staff, Librium recommended. Per EMR review- CIWA 15 0000 11/02; Ativan administered Patient states he has been doing ok recently; he felt that he was withdrawing last night but now feels better after Ativan. Patient reports mild headache. Patient oriented. No numbness/tingling/weakness in extremities. No reported chest pain or shortness of breath. Patient reports drinking ~12 beers daily; he hopes for skilled nursing treatment on discharge Physical Exam Vital signs: Vital Signs 11/01/17 12:00 11/01/17 16:00 11/01/17 20:00 Temperature 98.5 F 98.0 F 97.9 F Pulse Rate 65 64 58 L Respiratory Rate 25 H 23 24 Blood Pressure 162/92 H 150/90 H 156/83 H Pulse Oximetry 96 97 100 11/02/17 00:00 11/02/17 04:00 Temperature 98.2 F 98 F Pulse Rate 58 L 70 Respiratory Rate 22 30 H Blood Pressure 148/91 H 152/81 H Pulse Oximetry 100 100 Intake & Output 11/01/17 11/02/17 11/02/17 18:59 06:59 18:59 Intake Total 1361.2 / 1361.2 Output Total 850 / 850 700 / 700 Balance 511.2 / 511.2 -700 / -700 Weight 67.3 kg Intake: IV 861.2 / 861.2 NS Inj 1,000 ML @ 125 mls/hr IV 350 / 350 .CONT .Q8H BILL Rx#:[id number] MVI-12 Inj 10 ML Thiamine Inj 511.2 / 511.2 100 MG Folvite Inj 1 MG In NS Inj 500 ML @ 125 mls/hr IV.SIG Q24H BILL Rx#:[id number] Oral 500 / 500 Output: Urine 850 / 850 700 / 700 Other: Date of Last Bowel Movement 11/01/17 11/01/17 # Bowel Movements 3 1 Narrative: GENERAL: NAD. SKIN: Warm and dry. HEAD: Atraumatic. Normocephalic. EYES: EOM grossly I. PERRLA. No visible icterus ENT: No nasal bleeding or discharge. Mucous membranes pink and moist. CARDIOVASCULAR: Regular rate and rhythm; normal perfusion. No LE edema RESPIRATORY:CTAB; normal rate GASTROINTESTINAL: Abdomen soft, non-tender, nondistended. MUSCULOSKELETAL: Extremities without peripheral edema. L knee with normal ROM; no obvious effusion. Improved per patient NEUROLOGICAL: Awake and alert. No obvious cranial nerve deficits. Peripheral motor/sensory function grossly normal PSYCH: No anxiety currently Results - Labs CBC & Chem 7: 11/02/17 04:17 11/02/17 04:17 Laboratory Results - last 24 hr 11/02/17 11/02/17 04:17 04:17 WBC 4.1 RBC 3.97 L Hgb 14.0 Hct 40.8 MCV 102.7 H MCH 35.1 H MCHC 34.2 RDW 12.7 Plt Count 173 MPV 8.2 Neut % (Auto) 45.3 Lymph % (Auto) 42.6 [place] % (Auto) 8.7 H Eos % (Auto) 2.8 Baso % (Auto) 0.6 Neut # (Auto) 1.8 Lymph # (Auto) 1.7 [place] # (Auto) 0.4 Eos # (Auto) 0.1 Baso # (Auto) 0.0 WBC Differential . Differential Comment Auto diff final Sodium 139 Potassium 4.0 Chloride 105 Carbon Dioxide 27.0 Anion Gap 7 BUN 6 L Creatinine 0.76 Estimated GFR Greater than 89 Random Glucose 100 Calcium 8.4 L Assessment and Plan - Assessment (1) Acute subdural hematoma Code(s): S06.5X9A - Traumatic subdural hemorrhage with loss of consciousness of unspecified duration, initial encounter Status: Acute (2) Alcohol dependence with withdrawal Code(s): F10.239 - Alcohol dependence with withdrawal, unspecified Status: Acute (3) Alcohol abuse Code(s): F10.10 - Alcohol abuse, uncomplicated Status: Chronic - Plan Mr. Cardoso is a 57 yo M with: NEURO: Acute bilateral frontal subdural hematoma Alcohol withdrawal Alcohol dependence CT of the head 10/31- acute appearing bilateral subdural hemorrhages left frontal 11 mm right frontal 3 mm. Some mass effect but no midline shift CT head 11/01- no significant change -Neurosurgery consulted -OK for transfer -Non-op management -Continue neuro checks -GI PPX -Francisco hose/SCD's -Alcohol withdrawal -CIWA protocol -Per nursing suggestion, will schedule Librium while inpatient while more severe symptoms and plan to down-titrate -Plan for CM evaluation; he requests cessation/skilled nursing program on discahrge RESP: Tobacco abuse -DuoNeb every 6 hours as needed -Incentive spirometry, aggressive pulmonary toilet -Advised to quit smoking CV: Hypertension Impression: SBP 140's-150's recently -Normal saline IV fluids 84 ml per hour -Continue home medications -Will increase amlodipine to 10mg daily -clonidine 0.1mg BID - Hold losartan -IV labetalol 20 mg every 2 hours as needed for BP more than 160/95 GI: Impression: Mild LFT elevations suspected secondary to alcohol induced liver injury -Heart healthy diet, IV famotidine : -Monitor renal function closely. ID: -Monitor closely for infection HEME: -Monitor CBC, coags ENDO: -Electrolyte replacement per protocol -Sliding scale insulin if needed MSK: Left knee pain, mild effusion Impression: X-ray shows mild effusion no acute fracture 11/01- improvement in pain -Will monitor PROPH: -Bilateral lower extremity SCDs. Continue famotidine. Chemical DVT prophylaxis is contraindicated Code Status: Full code Discharge Planning: Per Neurosurgery recommendations
--- NOTE | 2017-11-02 09:18 | P.PNNS ---
Subjective Interval history: 11/02: reports of stable mild headache, denies focal weakness, mild tremors in his hands this morning. no reports of seizures overnight. Physical Exam Vital signs: Vital Signs 11/01/17 12:00 11/01/17 16:00 11/01/17 20:00 Temperature 98.5 F 98.0 F 97.9 F Pulse Rate 65 64 58 L Respiratory Rate 25 H 23 24 Blood Pressure 162/92 H 150/90 H 156/83 H Pulse Oximetry 96 97 100 11/02/17 00:00 11/02/17 04:00 Temperature 98.2 F 98 F Pulse Rate 58 L 70 Respiratory Rate 22 30 H Blood Pressure 148/91 H 152/81 H Pulse Oximetry 100 100 Intake & Output 11/01/17 11/02/17 11/02/17 18:59 06:59 18:59 Intake Total 1361.2 / 1361.2 Output Total 850 / 850 700 / 700 Balance 511.2 / 511.2 -700 / -700 Weight 67.3 kg Intake: IV 861.2 / 861.2 NS Inj 1,000 ML @ 125 mls/hr IV 350 / 350 .CONT .Q8H BILL Rx#:[id number] MVI-12 Inj 10 ML Thiamine Inj 511.2 / 511.2 100 MG Folvite Inj 1 MG In NS Inj 500 ML @ 125 mls/hr IV.SIG Q24H BILL Rx#:[id number] Oral 500 / 500 Output: Urine 850 / 850 700 / 700 Other: Date of Last Bowel Movement 11/01/17 11/01/17 # Bowel Movements 3 1 Narrative: GENERAL: In bed NAD. SKIN: Warm and dry. HEAD: Atraumatic. Normocephalic. EYES: Pupils equal and round. No scleral icterus. No injection or drainage. ENT: No nasal bleeding or discharge. Mucous membranes pink and moist. NECK: Trachea midline. No JVD. CARDIOVASCULAR: Regular rate and rhythm. RESPIRATORY: No accessory muscle use. Clear to auscultation. Breath sounds equal bilaterally. GASTROINTESTINAL: Abdomen soft, non-tender, nondistended. MUSCULOSKELETAL: Extremities without clubbing, cyanosis, or edema. No obvious deformities. NEUROLOGICAL: Awake and alert and oriented x 3. No obvious cranial nerve deficits. Five out of 5 muscle strength in the arms and legs. Normal speech. Tremors in arms. Assessment and Plan - Plan 57 y/o male possible fall etoh abuse Subdural hematoma, stable on f/u CT Brain, nonoperative Head CT 11/01/17 05:00 CONCLUSION: No significant change. . Head CT 10/31/17 07:19 CONCLUSION: 1. Acute subdural hematomas within the frontal regions bilaterally much larger on the left than the right. The left frontal subdural hematoma measures 11 mm in greatest width in the right measures 3 mm in greatest width. There is some mass effect upon the left frontal lobe but no midline shift. Plan: follow up CT Brain reviewed by Dr. Rodriguez, cont nonop mgt ok to transfer out of [facility] to neuro floor cont neuro checks Continue Protonix for stress ulcer prophylaxis Continue Francisco hose and SCD's for DVT prophylaxis CIWA protocol - mgt per critical care
[2017-11-02] MEDS: Famotidine PF Inj 20 MG/2 ML Vial IV.PUSH SCH ×2 (09:19→20:44)
[2017-11-02] MEDS: Senna/Docusate Sodium 8.6/50 MG Tablet PO SCH ×3 (09:19→20:44)
[2017-11-02] MEDS: amLODIPine 10 MG Tablet PO SCH (09:19)
[2017-11-02] MEDS: Multivitamin Inj 10 ML, Thiamine Inj 100 MG, Folic Acid Inj 1 MG in Sodium Chlor 0.9% I... IV.SIG SCH (12:17)
[2017-11-03 04:37] LABS: Baso % (Auto) 0.7 % (0.0-2.0); Eos # (Auto) 0.1 th/mm3 (0.0-0.4); Eos % (Auto) 2.7 % (0.0-4.0); Hematocrit 40.6 % (39.0-51.0); Hemoglobin 13.5 gm/dL (13.0-17.0); Mean Corpuscular HGB Conc 33.3 % (32.0-36.0); Mean Corpuscular Hemoglobin 34.2 pg (27.0-34.0); Mean Corpuscular Volume 102.9 fL (80.0-100.0); Mean Platelet Volume 7.8 fL (7.0-11.0); Mono # (Auto) 0.4 th/mm3 (0.0-0.9); Neut # (Auto) 1.5 th/mm3 (1.8-7.7); Neut % (Auto) 36.6 % (16.0-70.0); Platelet Count 158 th/mm3 (150-450); Red Blood Count 3.95 mil/mm3 (4.50-5.90); Red Cell Distribution Width 12.4 % (11.6-17.2); White Blood Count 4.1 th/mm3 (4.0-11.0)
[2017-11-03 04:56] LABS: Albumin 2.6 g/dL (3.4-5.0); Anion Gap 11 meq/L (5-15); Aspartate Aminotransferase 49 U/L (15-37); Blood Urea Nitrogen 8 mg/dL (7-18); Calcium 8.3 mg/dL (8.5-10.1); Carbon Dioxide 22.7 meq/L (21.0-32.0); Chloride 104 meq/L (98-107); Glomerular Filtration Rate Greater Than 89 mL/min (>89); Glucose,Random 93 mg/dL (74-106); Potassium 3.5 meq/L (3.5-5.1); Sodium 138 meq/L (136-145)
[2017-11-03 05:00] LABS: Alanine Aminotransferase 41 U/L (12-78); Alkaline Phosphatase 99 U/L (45-117); Total Protein 7.7 g/dL (6.4-8.2)
[2017-11-03] MEDS: Chlorhexidine Gluconate 2% 1 Pack (2 Cloths) TOPICAL SCH (07:19)
[2017-11-03] MEDS: Sod Chloride 0.9% Inj 1,000 ML IV.CONT SCH (07:19)
--- NOTE | 2017-11-03 08:27 | P.PNIM ---
Subjective Interval history: Mr. Cardoso was afebrile with HTN overnight. Per EMR review, low CIWA scores recently. Patient states that he feels better at this time. He does not report headache, vision changes, or extremity numbness/tingling/weakness. Patient reports improvement in his left leg pain. Patient does not report chest pain, shortness of breath, or bowel/urine changes. Patient states that he would like to look into [facility] alcohol withdrawal [facility] center Physical Exam Vital signs: Vital Signs 11/02/17 12:00 11/02/17 16:00 11/02/17 20:00 Temperature 98.1 F 98.2 F 98.1 F Pulse Rate 62 62 72 Respiratory Rate 26 H 25 H 16 Blood Pressure 152/88 H 171/95 H 163/94 H Pulse Oximetry 100 98 11/03/17 00:00 11/03/17 04:00 Temperature 98.3 F 97.8 F Pulse Rate 58 L 71 Respiratory Rate 16 18 Blood Pressure 167/97 H 171/98 H Pulse Oximetry 100 100 Intake & Output 11/02/17 11/03/17 11/03/17 18:59 06:59 18:59 Intake Total 1811.2 / 1811.2 650 / 650 Output Total 850 / 850 850 / 850 Balance 961.2 / 961.2 -200 / -200 Weight 67.3 kg Intake: IV 1161.2 / 1161.2 NS Inj 1,000 ML @ 125 mls/hr IV 650 / 650 .CONT .Q8H BILL Rx#:[id number] MVI-12 Inj 10 ML Thiamine Inj 511.2 / 511.2 100 MG Folvite Inj 1 MG In NS Inj 500 ML @ 125 mls/hr IV.SIG Q24H BILL Rx#:[id number] Oral 650 / 650 650 / 650 Output: Urine 850 / 850 850 / 850 Other: # Voids 4 Date of Last Bowel Movement 11/02/17 11/02/17 # Bowel Movements 2 2 Narrative: GENERAL: NAD. SKIN: Warm and dry. HEAD: Atraumatic. Normocephalic. EYES: EOM grossly I. PERRLA. No visible icterus ENT: No nasal bleeding or discharge. Mucous membranes pink and moist. CARDIOVASCULAR: Regular rate and rhythm; normal perfusion. No LE edema RESPIRATORY:CTAB; normal rate GASTROINTESTINAL: Abdomen soft, non-tender, nondistended. MUSCULOSKELETAL: Extremities without peripheral edema. L knee with normal ROM; no obvious effusion. Improved pain; able to ambulate well NEUROLOGICAL: Awake and alert. No obvious cranial nerve deficits. Peripheral motor/sensory function grossly normal; no tremors today PSYCH: No anxiety currently Results - Labs CBC & Chem 7: 11/03/17 04:04 11/03/17 04:04 Laboratory Results - last 24 hr 11/03/17 11/03/17 04:04 04:04 WBC 4.1 RBC 3.95 L Hgb 13.5 Hct 40.6 MCV 102.9 H MCH 34.2 H MCHC 33.3 RDW 12.4 Plt Count 158 MPV 7.8 Neut % (Auto) 36.6 Lymph % (Auto) 50.0 H [place] % (Auto) 10.0 H Eos % (Auto) 2.7 Baso % (Auto) 0.7 Neut # (Auto) 1.5 L Lymph # (Auto) 2.0 [place] # (Auto) 0.4 Eos # (Auto) 0.1 Baso # (Auto) 0.0 WBC Differential . Differential Comment Auto diff final Sodium 138 Potassium 3.5 Chloride 104 Carbon Dioxide 22.7 Anion Gap 11 BUN 8 Creatinine 0.67 Estimated GFR Greater than 89 Random Glucose 93 Calcium 8.3 L Total Bilirubin 0.3 AST 49 H ALT 41 Alkaline Phosphatase 99 Total Protein 7.7 Albumin 2.6 L Assessment and Plan - Assessment (1) Acute subdural hematoma Code(s): S06.5X9A - Traumatic subdural hemorrhage with loss of consciousness of unspecified duration, initial encounter Status: Acute (2) Alcohol dependence with withdrawal Code(s): F10.239 - Alcohol dependence with withdrawal, unspecified Status: Acute (3) Alcohol abuse Code(s): F10.10 - Alcohol abuse, uncomplicated Status: Chronic - Plan Mr. Cardoso is a 57 yo M with: NEURO: Acute bilateral frontal subdural hematoma Alcohol withdrawal Alcohol dependence CT of the head 10/31- acute appearing bilateral subdural hemorrhages left frontal 11 mm right frontal 3 mm. Some mass effect but no midline shift CT head 11/01- no significant change -Neurosurgery consulted -OK for transfer to floor -Non-op management -Continue neuro checks -GI PPX -Francisco hose/SCD's -Alcohol withdrawal -CIWA protocol -Per nursing suggestion, will schedule Librium while inpatient while more severe symptoms and plan to down-titrate -Plan for CM evaluation; he requests cessation/prison program on discharge RESP: Tobacco abuse -DuoNeb every 6 hours as needed -Incentive spirometry, aggressive pulmonary toilet -Advised to quit smoking CV: Hypertension Impression: SBP 140's-170's recently -Will stop NS IV fluids 125 ml per hour -Continue home medications -Continue amlodipine 10mg daily (increased from home dose) -clonidine 0.1mg BID -Will resume Losartan 50mg daily -IV labetalol 20 mg every 2 hours as needed for BP more than 160/95 GI: Impression: Mild LFT elevations suspected secondary to alcohol induced liver injury -Heart healthy diet, IV famotidine : -Monitor renal function closely. ID: -Monitor closely for infection HEME: -Monitor CBC, coags ENDO: -Electrolyte replacement per protocol -Sliding scale insulin if needed MSK: Left knee pain, mild effusion Impression: X-ray shows mild effusion no acute fracture 11/02- continued improvement in pain -Will monitor PROPH: -Bilateral lower extremity SCDs. Continue famotidine. Chemical DVT prophylaxis is contraindicated Discharge Planning: Per Neurosurgery recommendations
--- NOTE | 2017-11-03 09:07 | P.PNNS ---
Subjective Interval history: No acute events overnight. Physical Exam Vital signs: Vital Signs 11/02/17 12:00 11/02/17 16:00 11/02/17 20:00 Temperature 98.1 F 98.2 F 98.1 F Pulse Rate 62 62 72 Respiratory Rate 26 H 25 H 16 Blood Pressure 152/88 H 171/95 H 163/94 H Pulse Oximetry 100 98 11/03/17 00:00 11/03/17 04:00 Temperature 98.3 F 97.8 F Pulse Rate 58 L 71 Respiratory Rate 16 18 Blood Pressure 167/97 H 171/98 H Pulse Oximetry 100 100 Intake & Output 11/02/17 11/03/17 11/03/17 18:59 06:59 18:59 Intake Total 1811.2 / 1811.2 650 / 650 Output Total 850 / 850 850 / 850 Balance 961.2 / 961.2 -200 / -200 Weight 67.3 kg Intake: IV 1161.2 / 1161.2 NS Inj 1,000 ML @ 125 mls/hr IV 650 / 650 .CONT .Q8H BILL Rx#:[id number] MVI-12 Inj 10 ML Thiamine Inj 511.2 / 511.2 100 MG Folvite Inj 1 MG In NS Inj 500 ML @ 125 mls/hr IV.SIG Q24H BILL Rx#:[id number] Oral 650 / 650 650 / 650 Output: Urine 850 / 850 850 / 850 Other: # Voids 4 Date of Last Bowel Movement 11/02/17 11/02/17 # Bowel Movements 2 2 Narrative: Opens eyes spontaneously. Alert and oriented to self, year Follows commands x4 with full strength No pronator drift Assessment and Plan - Plan 57 y/o male with fall and small subdural hematoma stable on repeat imaging. Plan: No neurosurgical intervention indicated. Ok to relax neuro checks to q4h.
[2017-11-03] MEDS: amLODIPine 10 MG Tablet PO SCH (09:15)
[2017-11-03] MEDS: Famotidine PF Inj 20 MG/2 ML Vial IV.PUSH SCH ×2 (09:15→21:46)
[2017-11-03] MEDS: Senna/Docusate Sodium 8.6/50 MG Tablet PO SCH ×2 (09:17→21:46)
[2017-11-04] MEDS: Chlorhexidine Gluconate 2% 1 Pack (2 Cloths) TOPICAL SCH (06:00)
[2017-11-04 09:06] LABS: Baso % (Auto) 0.6 % (0.0-2.0); Eos # (Auto) 0.1 th/mm3 (0.0-0.4); Eos % (Auto) 2.9 % (0.0-4.0); Hematocrit 42.1 % (39.0-51.0); Hemoglobin 14.3 gm/dL (13.0-17.0); Lymph # (Auto) 2.1 th/mm3 (1.0-4.8); Mean Platelet Volume 8.1 fL (7.0-11.0); Mono # (Auto) 0.4 th/mm3 (0.0-0.9); Mono % (Auto) 10.7 % (0.0-8.0); Neut # (Auto) 1.4 th/mm3 (1.8-7.7); Neut % (Auto) 34.8 % (16.0-70.0); Platelet Count 165 th/mm3 (150-450); Red Blood Count 4.09 mil/mm3 (4.50-5.90); Red Cell Distribution Width 12.5 % (11.6-17.2); White Blood Count 4.1 th/mm3 (4.0-11.0)
[2017-11-04 09:23] LABS: Albumin 2.9 g/dL (3.4-5.0); Anion Gap 7 meq/L (5-15); Aspartate Aminotransferase 45 U/L (15-37); Blood Urea Nitrogen 14 mg/dL (7-18); Chloride 102 meq/L (98-107); Glomerular Filtration Rate Greater Than 89 mL/min (>89); Glucose,Random 85 mg/dL (74-106); Potassium 3.7 meq/L (3.5-5.1); Sodium 137 meq/L (136-145)
[2017-11-04 09:28] LABS: Alanine Aminotransferase 41 U/L (12-78); Alkaline Phosphatase 99 U/L (45-117); Total Protein 8.1 g/dL (6.4-8.2)
[2017-11-04] MEDS: amLODIPine 10 MG Tablet PO SCH (09:34)
[2017-11-04] MEDS: Senna/Docusate Sodium 8.6/50 MG Tablet PO SCH ×2 (09:36→22:18)
[2017-11-04] MEDS: Famotidine PF Inj 20 MG/2 ML Vial IV.PUSH SCH ×2 (09:50→22:17)
--- NOTE | 2017-11-04 15:48 | P.PNIM ---
Subjective Interval history: Mr. Cardoso was afebrile with stable VS overnight. Per EMR review, patient had CIWA 11 overnight at 2000 but since has had low scores <5. Patient reports headache and tremoring at time of evaluation but otherwise states that he is doing ok. He thinks his headache is due to withdrawal and requests more Ativan. Patient also reports chronic visual blurriness but states that it is unchanged. Patient does not report chest pain, shortness of breath, abnormal bowel movements, or abnormal urination. Patient re-evaluated after Ativan this afternoon; he states he is feeling better and headache resolved Physical Exam Vital signs: Vital Signs 11/03/17 16:00 11/03/17 20:00 11/04/17 00:00 Temperature 97.4 F L 97.9 F 97.4 F L Pulse Rate 62 92 H 65 Respiratory Rate 14 20 20 Blood Pressure 136/79 144/75 H 136/79 Pulse Oximetry 98 97 99 11/04/17 04:00 11/04/17 08:00 11/04/17 12:00 Temperature 97.8 F 97.7 F 98.1 F Pulse Rate 94 H 95 H 79 Respiratory Rate 20 16 14 Blood Pressure 100/58 L 159/119 H 87/54 L Pulse Oximetry 97 100 97 Intake & Output 11/03/17 11/04/17 11/04/17 18:59 06:59 18:59 Intake Total 1000 / 1000 480 / 480 Output Total 300 / 300 Balance 1000 / 1000 180 / 180 Weight 68.6 kg Intake: IV 1000 / 1000 NS Inj 1,000 ML @ 125 mls/hr IV 1000 / 1000 .CONT .Q8H [facility] Rx#:[id number] Oral 480 / 480 Output: Urine 300 / 300 Other: Date of Last Bowel Movement 11/03/17 # Bowel Movements 1 Narrative: GENERAL: NAD. SKIN: Warm and dry. EYES: EOM grossly I. PERRLA. No visible icterus ENT: Mucous membranes pink and moist. CARDIOVASCULAR: Regular rate and rhythm; normal perfusion. No LE edema RESPIRATORY:CTAB; normal rate GASTROINTESTINAL: Abdomen soft, non-tender, nondistended. MUSCULOSKELETAL: Extremities without peripheral edema. able to ambulate well NEUROLOGICAL: Awake and alert. Grossly normal cranial nerves. Peripheral motor/ sensory function grossly normal. patient tremoring some at rest Results - Labs CBC & Chem 7: 11/04/17 07:03 11/04/17 07:03 Laboratory Results - last 24 hr 11/04/17 11/04/17 07:03 07:03 WBC 4.1 RBC 4.09 L Hgb 14.3 Hct 42.1 MCV 103.0 H MCH 35.0 H MCHC 34.0 RDW 12.5 Plt Count 165 MPV 8.1 Neut % (Auto) 34.8 Lymph % (Auto) 51.0 H [place] % (Auto) 10.7 H Eos % (Auto) 2.9 Baso % (Auto) 0.6 Neut # (Auto) 1.4 L Lymph # (Auto) 2.1 [place] # (Auto) 0.4 Eos # (Auto) 0.1 Baso # (Auto) 0.0 WBC Differential . Differential Comment Auto diff final Sodium 137 Potassium 3.7 Chloride 102 Carbon Dioxide 28.0 Anion Gap 7 BUN 14 Creatinine 0.95 Estimated GFR Greater than 89 Random Glucose 85 Calcium 9.0 Total Bilirubin 0.3 AST 45 H ALT 41 Alkaline Phosphatase 99 Total Protein 8.1 Albumin 2.9 L Assessment and Plan - Assessment (1) Acute subdural hematoma Code(s): S06.5X9A - Traumatic subdural hemorrhage with loss of consciousness of unspecified duration, initial encounter Status: Acute (2) Alcohol dependence with withdrawal Code(s): F10.239 - Alcohol dependence with withdrawal, unspecified Status: Acute (3) Alcohol abuse Code(s): F10.10 - Alcohol abuse, uncomplicated Status: Chronic - Plan Mr. Cardoso is a 57 yo M with: NEURO: Acute bilateral frontal subdural hematoma Alcohol withdrawal Alcohol dependence CT of the head 10/31- acute appearing bilateral subdural hemorrhages left frontal 11 mm right frontal 3 mm. Some mass effect but no midline shift CT head 11/01- no significant change -Neurosurgery consulted -Non-op management -Continue neuro checks; space to q4hrs -GI PPX -Francisco hose/SCD's -Alcohol withdrawal -CIWA protocol -Per nursing suggestion, will schedule Librium while inpatient while more severe symptoms and plan to down-titrate -Plan for CM evaluation; he requests cessation/long chain beamer program on discharge RESP: Tobacco abuse -DuoNeb every 6 hours as needed -Incentive spirometry, aggressive pulmonary toilet -Advised to quit smoking CV: Hypertension Impression: SBP 140's-170's recently -Will stop NS IV fluids 125 ml per hour -Continue home medications -Will reduce amlodipine back to 5mg daily (increased but some low BP today) -Continue clonidine 0.1mg BID -Continue Losartan 50mg daily -IV labetalol 20 mg every 2 hours as needed for BP more than 160/95 GI: Impression: Mild LFT elevations suspected secondary to alcohol induced liver injury -Heart healthy diet, IV famotidine : -Monitor renal function closely. ID: -Monitor closely for infection HEME: -Monitor CBC, coags ENDO: -Electrolyte replacement per protocol -Sliding scale insulin if needed MSK: Left knee pain, mild effusion Impression: X-ray shows mild effusion no acute fracture 11/02- continued improvement in pain -Will monitor PROPH: -Bilateral lower extremity SCDs. Continue famotidine. Chemical DVT prophylaxis is contraindicated Code Status: Full code Discharge Planning: Per Neurosurgery recommendations
[2017-11-04] MEDS ORDERED: amLODIPine 5 MG Tablet PO SCH (19:21)
[2017-11-05] MEDS: Chlorhexidine Gluconate 2% 1 Pack (2 Cloths) TOPICAL SCH (04:48)
[2017-11-05] MEDS: Senna/Docusate Sodium 8.6/50 MG Tablet PO SCH (08:31)
[2017-11-05] MEDS: Famotidine PF Inj 20 MG/2 ML Vial IV.PUSH SCH (08:31)
[2017-11-05 08:47] VITALS: RESP 20
--- NOTE | 2017-11-05 14:37 | P.PNNS ---
Subjective Interval history: reports to be feeling much better this am, headaches better, denies seizures, focal weakness. ambulating without difficulties. Physical Exam Vital signs: Vital Signs 11/04/17 16:00 11/04/17 20:00 11/05/17 00:00 Temperature 97.5 F L 97.7 F 97.4 F L Pulse Rate 66 61 57 L Respiratory Rate 14 18 18 Blood Pressure 142/88 H 118/68 113/64 Pulse Oximetry 100 97 97 11/05/17 04:00 11/05/17 08:00 11/05/17 12:00 Temperature 97.2 F L 97.9 F 97.8 F Pulse Rate 61 55 L 63 Respiratory Rate 18 20 20 Blood Pressure 124/77 118/76 108/66 Pulse Oximetry 98 97 98 Intake & Output 11/04/17 11/05/17 11/05/17 18:59 06:59 18:59 Intake Total 443 / 443 Balance 443 / 443 Weight 66.2 kg Intake: Oral 441 / 441 Other 2 / 2 Other: # Voids 1 Date of Last Bowel Movement 11/03/17 Narrative: GENERAL: NAD. SKIN: Warm and dry. HEAD: Normocephalic EYES: EOM grossly I. PERRLA. No visible icterus ENT: Mucous membranes pink and moist. CARDIOVASCULAR: Regular rate and rhythm RESPIRATORY: clear, no wheezing MUSCULOSKELETAL: No clubbing, no swelling. NEUROLOGICAL: Awake and alert. Grossly normal cranial nerves. Moves all four extremities with 5/5 strength. GAIT: ambulating around his room with a fairly steady gait. Assessment and Plan - Plan 57 y/o male with fall and small subdural hematoma stable on repeat imaging. Plan: no neurosurgical intervention indicated or planned cont medical management, ok to dc from NRS standpoint
--- NOTE | 2017-11-05 15:19 | P.PNIM ---
Subjective Interval history: Mr. Cardoso was afebrile with stable VS overnight. Patient reports that he has continued headache and chronic visual blurriness but otherwise states that he is doing well. Patient does not report chest pain, shortness of breath, abnormal BM, or abnormal urination. Patient thinks that his withdrawal symptoms have improved. Patient reports plans to attempt fpc alcohol rehabilitation after discharge. He has been ambulating well; patient has mild L knee pain. Physical Exam Vital signs: Vital Signs 11/04/17 16:00 11/04/17 20:00 11/05/17 00:00 Temperature 97.5 F L 97.7 F 97.4 F L Pulse Rate 66 61 57 L Respiratory Rate 14 18 18 Blood Pressure 142/88 H 118/68 113/64 Pulse Oximetry 100 97 97 11/05/17 04:00 11/05/17 08:00 11/05/17 12:00 Temperature 97.2 F L 97.9 F 97.8 F Pulse Rate 61 55 L 63 Respiratory Rate 18 20 20 Blood Pressure 124/77 118/76 108/66 Pulse Oximetry 98 97 98 Intake & Output 11/04/17 11/05/17 11/05/17 18:59 06:59 18:59 Intake Total 443 / 443 Balance 443 / 443 Weight 66.2 kg Intake: Oral 441 / 441 Other 2 / 2 Other: # Voids 1 Date of Last Bowel Movement 11/03/17 Narrative: GENERAL: NAD. SKIN: Warm and dry EYES: EOM grossly I. PERRLA. No visible icterus ENT: No nasal bleeding or discharge. Mucous membranes pink and moist CARDIOVASCULAR: Regular rate and rhythm; normal perfusion. No LE edema RESPIRATORY:CTAB; normal rate GASTROINTESTINAL: Abdomen soft, non-tender, nondistended MUSCULOSKELETAL: Extremities without peripheral edema. Mildly decreased ROM at knee flexion in LLE NEUROLOGICAL: Awake and alert. No obvious cranial nerve deficits. Peripheral motor/sensory function grossly normal; no tremors today Results - Labs CBC & Chem 7: 11/04/17 07:03 11/04/17 07:03 Assessment and Plan - Assessment (1) Acute subdural hematoma Code(s): S06.5X9A - Traumatic subdural hemorrhage with loss of consciousness of unspecified duration, initial encounter Status: Acute (2) Alcohol dependence with withdrawal Code(s): F10.239 - Alcohol dependence with withdrawal, unspecified Status: Acute (3) Alcohol abuse Code(s): F10.10 - Alcohol abuse, uncomplicated Status: Chronic - Plan Mr. Cardoso is a 57 yo M with: NEURO: Acute bilateral frontal subdural hematoma Alcohol withdrawal Alcohol dependence CT of the head 10/31- acute appearing bilateral subdural hemorrhages left frontal 11 mm right frontal 3 mm. Some mass effect but no midline shift CT head 11/01- no significant change -Neurosurgery consulted -Stable -Discharge OK -Alcohol withdrawal -Will plan to discharge with 3 day Librium taper RESP: Tobacco abuse -DuoNeb every 6 hours as needed -Incentive spirometry, aggressive pulmonary toilet -Advised to quit smoking CV: Hypertension Impression: SBP 140's-170's recently -Will stop NS IV fluids 125 ml per hour -Continue home medications -Continue amlodipine 5mg daily -Continue clonidine 0.1mg BID -Continue Losartan 50mg daily -IV labetalol 20 mg every 2 hours as needed for BP more than 160/95 GI: Impression: Mild LFT elevations suspected secondary to alcohol induced liver injury -Heart healthy diet, IV famotidine : -Monitor renal function closely. ID: -Monitor closely for infection HEME: -Monitor CBC, coags ENDO: -Electrolyte replacement per protocol -Sliding scale insulin if needed MSK: Left knee pain, mild effusion Impression: X-ray shows mild effusion no acute fracture 11/02- continued improvement in pain -Will monitor PROPH: -Bilateral lower extremity SCDs. Continue famotidine. Chemical DVT prophylaxis is contraindicated Code Status: Full code Discharge Planning: Plan for discharge today
[2017-11-05 16:31] VITALS: BP 130/79; PULSE 75; TEMP 98.2; O2SAT 100
--- NOTE | 2017-11-06 22:55 | P.DS ---
Date of admission: 10/31/17 10:38 Primary care physician: No Primary Care Physician Attending physician on discharge: Florentino Torres Anticipated date of discharge: 11/05/17 Brief History from admission: Patient is a 57 yo -[place]ones[place] male with past medical history significant for hypertension, alcohol dependence who presented to the emergency department initially for left knee pain since he woke up today. He might have fallen last night but was drunk and does not remember what happened. He admits to drinking about 10-12 beers daily on further questioning. Further workup in the ER including a CT of the head showed acute bilateral frontal subdural hematomas larger on the left (11 mm) than the right (3mm). There is some mass effect upon the left frontal lobe but no midline shift. His left knee x-ray showed small prepatellar effusion no acute fracture. Patient was also in alcohol withdrawal and critical care medicine was requested to admit the patient. Dr. Rodriguez from neurosurgery had been consulted I evaluated the patient in the emergency department. He is currently lying in bed hypertensive tachycardic tremulous appears to be in alcohol withdrawal. Started on CIWA protocol. We will add Precedex if needed, supplement thiamine and multivitamin. CT of the head personally reviewed and discussed with Dr. Rodriguez. Plan for medical management at this time. Repeat CT scan in a.m. Patient update on day of discharge: Mr. Cardoso was afebrile with stable VS overnight. Patient reports that he has continued headache and chronic visual blurriness but otherwise states that he is doing well. Patient does not report chest pain, shortness of breath, abnormal BM, or abnormal urination. Patient thinks that his withdrawal symptoms have improved. Patient reports plans to attempt terminal make up operator alcohol rehabilitation after discharge. He has been ambulating well; patient has mild L knee pain. DS: Diagnosis - Discharge Diagnosis (1) Acute subdural hematoma Status: Acute (2) Alcohol dependence with withdrawal Status: Acute (3) Alcohol abuse Status: Chronic DS: Medications - Discharge Medications Prescriptions: acetaminophen 500 mg PO Q6H PRN #30 tab PRN Reason: Headache amlodipine 5 mg PO DAILY #30 tab chlordiazepoxide HCl See Label Instructions .ROUTE .COMPLEX #6 cap clonidine HCl 0.1 mg PO BID #60 tab losartan 50 mg PO DAILY #30 tab pantoprazole 40 mg PO DAILY #30 tab DS: Summary Hospital Course: Walker is a 57 yo -[place] male with PMH significant for HTN, alcohol dependence who presented to the ED 10/31 with left knee pain. Knee XR with mild effusion but otherwise unremarkable. CT head in the ED with acute bilateral frontal subdural hematomas larger on L than R; some mass effect on L frontal lobe w/o midline shift. Patient admitted to Critical care service; CIWA started. Neurosurgery consulted. Patient had follow-up CT head 11/01 which was without significant change; he was monitored neurologically without progression of symptoms. Patient initially had multiple elevate CIWA scores; patient was started on Librium. Patient had improvement in knee pain during hospitalization ; his alcohol withdrawal symptoms subsided. He was found to be hypertensive during hospitalization so was started on multiple antihypertensives. Patient was discharged 11/05; he will plan to follow-up with PCP. Patient given 3 day [place] taper at discharge. - Time Spent with Patient Total time spent providing and/or coordinating discharge services: Less than 30 minutes - Quality: VTE Deep Vein Thrombosis/Pulmonary Embolism Present on Admission: No Exam Vital signs: Initial Documented Vital Signs Temperature 98.5 F 10/31/17 06:59 Pulse Rate 81 10/31/17 06:59 Respiratory Rate 17 10/31/17 06:59 Blood Pressure 198/110 H 10/31/17 06:59 Pulse Oximetry 98 10/31/17 06:59 Last Documented Vital Signs Temperature 98.2 F 11/05/17 16:00 Pulse Rate 75 11/05/17 16:00 Respiratory Rate 20 11/05/17 16:00 Blood Pressure 130/79 11/05/17 16:00 Pulse Oximetry 100 11/05/17 16:00 Narrative: GENERAL: NAD. SKIN: Warm and dry EYES: EOM grossly I. PERRLA. No visible icterus ENT: No nasal bleeding or discharge. Mucous membranes pink and moist CARDIOVASCULAR: Regular rate and rhythm; normal perfusion. No LE edema RESPIRATORY:CTAB; normal rate GASTROINTESTINAL: Abdomen soft, non-tender, nondistended MUSCULOSKELETAL: Extremities without peripheral edema. Mildly decreased ROM at knee flexion in LLE NEUROLOGICAL: Awake and alert. No obvious cranial nerve deficits. Peripheral motor/sensory function grossly normal; no tremors today Results Procedures completed during hospitalization: None - Impressions ITS Impressions Knee X-Ray 10/31/17 07:15 CONCLUSION: 1. Small suprapatellar knee joint effusion. 2. Mild degenerative changes involving the patellofemoral and femorotibial joints. 3. No acute fracture or dislocation. 4. Spurring at the insertion of the quadriceps tendon as well as at the origin and insertion of the patellar ligament with some soft tissue swelling at the insertion of the patellar ligament on the tibia. Head CT 11/01/17 05:00 CONCLUSION: No significant change. . Discharge Plan - Discharge Disposition Patient Disposition: Discharge Home - Discharge Condition Condition: Stable - Discharge Order Discharge Orders: Discharge Order (Routine); Ordered 11/05/17 Ordered By: Florentino Torres - Discharge Details Anticipated Discharge Date: 11/05/17 - Physicians Team Primary Care Provider: Primary Care Mirian Carrington Attending Provider: Florentino Torres Other Providers: Davi Rodriguez MD
== END 2017-11-05 18:49 | disposition home or self-care (01) ==
LOC: NEPD 06:54 → NEDA 10:38 → N03 13:35 → N05 11-03 11:15
PROVIDERS: ADMIT Family Medicine; ATTEND Family Medicine